=== PATIENT | male | born 1940 | race Caucasian/White ===

== ENCOUNTER → 2018-02-06 07:13 | Outpatient (CLI) | payer MEDICARE, OTHER, SELFPAY ==
[2018-02-06 07:53] LABS: Alanine Aminotransferase 47 IU/L (21-72); Albumin 3.8 g/dL (3.5-5.0); Albumin Globulin Ratio 1.4 (1.0-2.8); Alkaline Phosphatase 70 U/L (38-126); Aspartate Aminotransferase 31 IU/L (17-59); Bilirubin Total 0.5 mg/dL (0.2-1.3); Blood Urea Nitrogen 35 mg/dL (9-20); Calcium 9.4 mg/dL (8.4-10.2); Carbon Dioxide 28 mmol/L (22-32); Chloride 107 mmol/L (98-107); Estimated Glomerular Filt Rate 48.9 mL/min (>60); Globulin 2.8 g/dL (1.7-4.1); Glucose 132 mg/dL (80-110); HEMOLYSIS < 15 (0-50); Potassium 4.1 mmol/L (3.4-5.1); Sodium 144 mmol/L (137-145); Total Protein 6.6 g/dL (6.3-8.2)
[2018-02-06 08:21] LABS: Prostate Specific Antigen Scrn 4.77 ng/mL (0.1-4.0)
== END ==
PROVIDERS: PCP Internal Medicine; Visit Provider Internal Medicine
DX: Z12.5 Encounter for screening for malignant neoplasm of prostate (principal); I10 Essential (primary) hypertension; I71.4 Abdominal aortic aneurysm, without rupture
CPT/HCPCS: 36415; 80053; G0103

== ENCOUNTER → 2018-07-16 08:31 | Outpatient (CLI) | payer MEDICARE, OTHER, SELFPAY ==
[2018-07-16 10:15] LABS: Alanine Aminotransferase 34 IU/L (21-72); Albumin 3.6 g/dL (3.5-5.0); Albumin Globulin Ratio 1.6 (1.0-2.8); Alkaline Phosphatase 65 U/L (38-126); Aspartate Aminotransferase 27 IU/L (17-59); BUN Creatinine Ratio 22.9 (6-22); Bilirubin Total 0.4 mg/dL (0.2-1.3); Blood Urea Nitrogen 32 mg/dL (9-20); Carbon Dioxide 28 mmol/L (22-32); Chloride 107 mmol/L (98-107); Estimated Glomerular Filt Rate 48.9 mL/min (>60); Globulin 2.3 g/dL (1.7-4.1); Glucose 121 mg/dL (80-110); HEMOLYSIS < 15 (0-50); Potassium 4.4 mmol/L (3.4-5.1); Sodium 146 mmol/L (137-145); Total Protein 5.9 g/dL (6.3-8.2)
== END ==
PROVIDERS: PCP Internal Medicine; Visit Provider Internal Medicine
DX: I10 Essential (primary) hypertension (principal); R97.20 Elevated prostate specific antigen [PSA]
CPT/HCPCS: 36415; 80053; 84153

== ENCOUNTER → 2018-08-02 07:11 | Outpatient (CLI) | payer MEDICARE, OTHER, SELFPAY ==
--- NOTE | 2018-08-02 07:14 | DI.US.S_ITS ---
PROCEDURE: US RETRO PERITONEAL LIMITED INDICATIONS: AAA TECHNIQUE: Real time scanning was performed of the aorta and iliac arteries, with image documentation. COMPARISON: [facility], US, RENAL OR RETROPERITONEAL LIMIT, 07/03/2017, 9:44. FINDINGS: Aorta: Proximal aortic obscured by overlying bowel gas. Mid-aorta measures 2.4 cm. Distal aortic diameter is 5.1 cm. Iliac arteries: Right common iliac artery measures 1.5 cm. Left common iliac artery measures 1.4cm. IMPRESSION: Increase in size of infrarenal distal abdominal aortic aneurysm measuring up to 5.1 cm in maximal AP diameter. Recommend 3-6 month followup ultrasound and consider surgery/endovascular treatment. Dictated by: Baldo LACKEY Interpreted: Kim Oliveros MD on 08/02/2018 at 8:22 Approved by: Kim Oliveros M.D. on 08/02/2018 at 11:50
== END ==
PROVIDERS: Family Provider Internal Medicine; PCP Internal Medicine; Visit Provider Internal Medicine
DX: I71.4 Abdominal aortic aneurysm, without rupture (principal)
CPT/HCPCS: 76775

== ENCOUNTER → 2018-09-28 07:24 | Outpatient (CLI) | payer MEDICARE, OTHER, SELFPAY ==
[2018-09-28 08:54] LABS: BUN Creatinine Ratio 22.9 (6-22); Blood Urea Nitrogen 32 mg/dL (9-20); Calcium 8.9 mg/dL (8.4-10.2); Carbon Dioxide 29 mmol/L (22-32); Chloride 103 mmol/L (98-107); Estimated Glomerular Filt Rate 48.9 mL/min (>60); Glucose 128 mg/dL (80-110); HEMOLYSIS < 15 (0-50); Potassium 4.5 mmol/L (3.4-5.1); Sodium 140 mmol/L (137-145)
== END ==
PROVIDERS: PCP Internal Medicine; Visit Provider Internal Medicine
DX: E87.6 Hypokalemia (principal)
CPT/HCPCS: 36415; 80048

== ENCOUNTER → 2018-10-10 10:38 | Outpatient (CLI) | payer MEDICARE, OTHER, SELFPAY ==
--- NOTE | 2018-10-10 10:41 | DI.US.S_ITS ---
PROCEDURE: US RENAL COMPLETE INDICATIONS: RENAL MASS ON OUTSIDE CT TECHNIQUE: Real-time scanning was performed of the kidneys and bladder, with image documentation. COMPARISON: Outside Facility, , CT ANGIOGRAPHY ABDOMEN AND PELVIS, 09/04/2018, 10:45. [facility], CT, ABDOMEN/PELVIS WITH CONTRAST, 05/23/2012, 13:35. [facility], US, RETROPERITONEAL [employer](PNL), 06/18/2012, 10:12. [facility], US, RENAL OR RETROPERITONEAL LIMIT, 07/03/2017, 9:44. [facility], US, RENAL OR RETROPERITONEAL LIMIT, 12/29/2016, 9:20. [facility], US, RENAL OR RETROPERITONEAL LIMIT, 06/23/2016, 8:37. [facility], US RETRO PERITONEAL LIMITED, 08/02/2018, 7:25. FINDINGS: Kidneys: Kidneys are normal in size. Right kidney measures 11.0 cm long; left kidney measures 11.0 cm long. Right renal cortical thickness is 0.6 cm; left renal cortical thickness is 0.7 cm. Renal cortical echotexture is normal. No hydronephrosis or nephrolithiasis. There is a 1.4 cm exophytic, simple appearing cyst in the inferior pole the right kidney, correlating with the mass seen on the outside CT. A 1.5 cm simple cyst is noted in the mid to superior pole of the right kidney. In the left kidney, there is a 1.5 cm cyst in the lateral aspect of the left kidney demonstrating a small focus of mural calcification. Bladder: Pre-void bladder volume is 533 mL. Post-void residual is 276 mL. There is a hypoechoic mass in the gravity dependent bladder base measuring 5.8 x 2.8 x 5.3 cm. A bladder diverticulum is noted in the right superior aspect of the bladder. Prostate is enlarged. On pelvic ultrasound comparison no vascularity. On pre-void images, both ureteral jets are noted with color Doppler interrogation. (Of note, ureteral jets may not be detectable in up to 25% of cases due to insufficient differences in specific gravity between ureteral and bladder urine). Miscellaneous: No free pelvic fluid. IMPRESSION: 1. The exophytic mass in the inferior pole of the right kidney is compatible with a simple cyst on ultrasound. Other simple appearing cysts are also noted in kidneys. 2. A 5.8 x 2.8 x 5.3 cm nonvascular mass is present within the gravity dependent bladder lumen, possibly a clot. 3. A bladder diverticulum is noted in the right superior aspect of the bladder. 4. Enlarged prostate. 5. 276 mL post void residual consistent with urinary retention. Dictated by: iKm Oliveros M.D. on 10/10/2018 at 14:30 Approved by: Kim Oliveros M.D. on 10/10/2018 at 14:45
== END ==
PROVIDERS: PCP Internal Medicine; Visit Provider Internal Medicine
DX: N28.89 Other specified disorders of kidney and ureter (principal); N32.9 Bladder disorder, unspecified; N32.3 Diverticulum of bladder; N40.0 Benign prostatic hyperplasia without lower urinary tract symptoms
CPT/HCPCS: 76770

== ENCOUNTER → 2019-01-21 07:27 | Outpatient (CLI) | payer MEDICARE, OTHER, SELFPAY ==
[2019-01-21 09:41] LABS: Alanine Aminotransferase 29 IU/L (21-72); Albumin 3.6 g/dL (3.5-5.0); Albumin Globulin Ratio 1.6 (1.0-2.8); Alkaline Phosphatase 69 U/L (38-126); Aspartate Aminotransferase 26 IU/L (17-59); BUN Creatinine Ratio 20.7 (6-22); Bilirubin Total 0.6 mg/dL (0.2-1.3); Blood Urea Nitrogen 31 mg/dL (9-20); Calcium 9.2 mg/dL (8.4-10.2); Carbon Dioxide 31 mmol/L (22-32); Chloride 104 mmol/L (98-107); Cholesterol 156 mg/dL (140-199); Globulin 2.3 g/dL (1.7-4.1); Glucose 125 mg/dL (80-110); HDL Cholesterol 37 mg/dL (40-60); HEMOLYSIS < 15 (0-50); LDL Cholesterol Calculated 97 mg/dL (<100); Potassium 4.7 mmol/L (3.4-5.1); Sodium 142 mmol/L (137-145); Total Protein 5.9 g/dL (6.3-8.2); Triglycerides 112 mg/dL (35-150)
[2019-01-21 10:08] LABS: Prostate Specific Antigen 4.04 ng/mL (0.10-4.00)
== END ==
PROVIDERS: PCP Internal Medicine; Visit Provider Internal Medicine
DX: E78.2 Mixed hyperlipidemia (principal); I10 Essential (primary) hypertension; Z12.5 Encounter for screening for malignant neoplasm of prostate
CPT/HCPCS: 36415; 80053; 80061; 84153; G0103

== ENCOUNTER → 2019-04-23 08:32 | Outpatient (CLI) | payer MEDICARE, OTHER, SELFPAY ==
[2019-04-23 10:01] LABS: Blood Urea Nitrogen 34 mg/dL (9-20); Calcium 9.5 mg/dL (8.4-10.2); Carbon Dioxide 30 mmol/L (22-32); Chloride 106 mmol/L (98-107); Glucose 137 mg/dL (80-110); HEMOLYSIS < 15 (0-50); Potassium 4.4 mmol/L (3.4-5.1); Sodium 143 mmol/L (137-145)
== END ==
PROVIDERS: PCP Internal Medicine; Visit Provider Internal Medicine
DX: I10 Essential (primary) hypertension (principal)
CPT/HCPCS: 36415; 80048

== ENCOUNTER → 2019-07-08 06:46 | Outpatient (CLI) | payer MEDICARE, OTHER, SELFPAY ==
--- NOTE | 2019-07-08 | DI.US.S_ITS ---
PROCEDURE: US RENAL COMPLETE INDICATIONS: CHRONIC KIDNEY DISEASE TECHNIQUE: Real-time scanning was performed of the kidneys and bladder, with image documentation. COMPARISON: [facility], , US RETRO PERITONEAL LIMITED, 08/02/2018, 7:25. Outside Facility, , CT ANGIOGRAPHY ABDOMEN AND PELVIS, 09/04/2018, 10:45. [facility], , US RENAL COMPLETE, 10/10/2018, 11:19. FINDINGS: Kidneys: Kidneys are normal in size. Right kidney measures 9.6 cm long; left kidney measures 10.7 cm long. Right renal cortical thickness is 1.3 cm; left renal cortical thickness is 0.9 cm. Renal cortical echotexture is normal. No hydronephrosis or nephrolithiasis. No suspicious solid mass lesions. There are small renal cortical cysts bilaterally. There is a 1.3 cm cyst in anterior cortex of the mid right kidney, and a 1.6 cm cyst in the anterior cortex upper pole of the right kidney. A 1.5 cm cyst is noted in the anterior cortex of the left kidney. Bladder: Pre-void bladder volume is 185 mL. Post-void residual is 65 mL. Pre-void images demonstrate no intraluminal masses or stones. On pre-void images, right ureteral jet is noted with color Doppler interrogation. Left ureteral jet is not visualized. (Of note, ureteral jets may not be detectable in up to 25% of cases due to insufficient differences in specific gravity between ureteral and bladder urine). Miscellaneous: No free pelvic fluid. IMPRESSION: 1. Bilateral renal cortical thinning and small renal cortical cysts. No hydronephrosis. 2. Moderate postvoid residual in bladder measuring 65 mL. Dictated by: Kim Oliveros M.D. on 07/08/2019 at 11:31 Approved by: Kim Oliveros M.D. on 07/08/2019 at 11:44
--- NOTE | 2019-07-08 | DI.ECHO.S_ITS ---
[facility]---------+ [facility] +---------+ : : [address] [place] : : : : [id number] : : : : Phone: [phone]+ Echocardiogram Report + + :Name: RACHEL HUGHES Study Date: 07/08/2019 Height: 72 in : :[facility] Weight: 227 lb : : Gender: Male BSA: 2.2 m2 : :: 1940 Age: 78 yrs BP: 174/86 mmHg: :Reason For Study: MURMUR : : Performed By: [facility] Staff : :Referring: LASHA RAMOS : + + Interpretation Summary Mild-moderate concentric left ventricular hypertrophy with ejection fraction 55-60%. Severely dilated left atrium. Mild aortic stenosis. Mild mitral regurgitation. Mild tricuspid regurgitation. Mildly dilated aortic root and ascending aorta. Procedure: A two-dimensional transthoracic echocardiogram with color flow and Doppler was performed. The study quality was technically adequate. There is no prior echocardiogram noted for this patient. The patient was in normal sinus rhythm during the exam. Left Ventricle: The left ventricle is normal in size. There is mild-moderate concentric left ventricular hypertrophy. The ejection fraction is estimated to be 55-60%. There are no focal wall motion abnormalities. Right Ventricle: The right ventricle is normal in size and function. Atria: The left atrium is severely dilated. Right atrial size is normal. The interatrial septum is intact with no evidence for an atrial septal defect. Mitral Valve: The mitral valve leaflets appear mildly thickened, but open well. There is mild mitral annular calcification. There is mild mitral regurgitation. Aortic Valve: The aortic valve is trileaflet. There is mild aortic stenosis. The calculated aortic valve area is 1.9 cm2. The peak aortic velocity is 2.29 m/sec. The aortic valve mean gradient is 10 mmHg. There is moderate aortic regurgitation. Tricuspid Valve: The tricuspid valve is normal in structure and function. There is mild tricuspid regurgitation. Pulmonary artery pressures cannot be estimated because of the lack of a measurable TR jet velocity. Pulmonic Valve: The pulmonic valve is normal in structure and function. There is mild pulmonic regurgitation. Great Vessels: The aortic root is mildly dilated. The ascending aorta is mildly enlarged. The pulmonary artery is normal size. The inferior vena cava was not visualized. Pericardium/ Pleura There is no pericardial effusion. There is no pleural effusion. MMode/2D Measurements & Calculations LVIDd: 5.1 cm LVOT diam: 2.2 cm LVIDs: 4.1 cm Ao root diam: 3.7 cm FS: 20.6 % Aortic Jxn: 2.7 cm EPSS: 1.5 cm asc Aorta Diam: 3.9 cm IVSd: 1.4 cm LVPWd: 1.4 cm LV gallo. diameter/BSA (cm/m^2): 2.3 LV sys. diameter/BSA (cm/m^2): 1.8 LA A2 area: 30.7 cm2 RA long axis: 5.5 cm LA A4 area: 31.7 cm2 RA area: 12.4 cm2 LA length (vol): 5.8 cm RA vol: 24.0 ml LA vol: 143.0 ml RA : 10.7 ml/m2 LA vol index: 63.6 ml/m2 TAPSE: 1.9 cm Doppler Measurements & Calculations Ao V2 max: 229.0 cm/sec LVOT Max Dennis: 132.4 cm/sec Ao V2 mean: 147.4 cm/sec LV V1 max P.0 mmHg Ao max P.0 mmHg LV V1 VTI: 26.4 cm Ao mean P.2 mmHg DHIRAJ(I,D): 1.9 cm2 Ao V2 VTI: 50.6 cm DHIRAJ(V,D): 2.1 cm2 sev ratio: 0.52 DHIRAJ indexed to BSA (cm^2/m^2): 0.85 MV E max dennis: 46.9 cm/sec TR max dennis: 261.9 cm/sec MV A max dennis: 73.7 cm/sec TR max P.5 mmHg MV E/A: 0.64 PA V2 max: 76.8 cm/sec Med Peak E' Dennis: 4.7 cm/sec PA V2 mean: 49.5 cm/sec E/E' med: 9.9 PA mean P.2 mmHg Lat Peak E' Dennis: 6.8 cm/sec PA Accel Time: 0.11 sec E/E' lat: 6.9 E/e' average: 8.4 MV dec time: 0.32 sec SV(LVOT): 96.7 ml Electronically signed by: Raissa Keating on Reading Physician:07/08/2019 01:15 PM
== END ==
PROVIDERS: PCP Internal Medicine; Visit Provider Internal Medicine
DX: I08.3 Combined rheumatic disorders of mitral, aortic and tricuspid valves (principal); R01.1 Cardiac murmur, unspecified
CPT/HCPCS: 76770; 93307

== ENCOUNTER → 2019-09-05 08:35 | Outpatient (CLI) | payer MEDICARE, SELFPAY ==
[2019-09-05 10:04] LABS: Alanine Aminotransferase 22 IU/L (<50); Albumin 3.7 g/dL (3.5-5.0); Albumin Globulin Ratio 1.5 (1.0-2.8); Alkaline Phosphatase 70 U/L (38-126); Aspartate Aminotransferase 26 IU/L (17-59); BUN Creatinine Ratio 18.2 (6-22); Bilirubin Total 0.4 mg/dL (0.2-1.3); Blood Urea Nitrogen 31 mg/dL (9-20); Calcium 9.8 mg/dL (8.4-10.2); Carbon Dioxide 28 mmol/L (22-32); Chloride 106 mmol/L (98-107); Globulin 2.5 g/dL (1.7-4.1); Glucose 122 mg/dL (80-110); HEMOLYSIS < 15 (0-50); Potassium 4.1 mmol/L (3.4-5.1); Sodium 141 mmol/L (137-145); Total Protein 6.2 g/dL (6.3-8.2)
== END ==
PROVIDERS: PCP Internal Medicine; Visit Provider Internal Medicine
DX: I10 Essential (primary) hypertension (principal); N18.3 Chronic kidney disease, stage 3 (moderate)
CPT/HCPCS: 36415; 80053

== ENCOUNTER → 2019-09-07 12:22 | Outpatient (CLI) | payer MEDICARE, SELFPAY ==
[2019-09-07 12:50] LABS: Bacteria Urine None Seen; RBC Urine None Seen (0-5/HPF); WBC Urine None Seen (0-5/HPF)
[2019-09-07 13:37] LABS: Appearance Urine UA CLEAR; Bilirubin Urine UA NEGATIVE (NEGATIVE); Color Urine UA YELLOW; Glucose Urine UA NEGATIVE (Negative); Ketones Urine UA NEGATIVE (NEGATIVE); Leukocyte Esterase Urine UA NEGATIVE (NEGATIVE); Nitrite Urine UA NEGATIVE (Negative); Occult Blood Urine UA NEGATIVE (Negative); Protein Urine UA 1+ (Negative); Urobilinogen Urine UA 0.2 E.U./dL (0.2); pH Urine UA 6.5 (4.5-8.0)
[2019-09-07 13:48] LABS: Culture Indicated Urine Cult Not Indicated; Urine Comments Microscopic Normal
[2019-09-07 16:28] LABS: Creatinine Urine Random 54.8 mg/dL
[2019-09-07 17:06] LABS: Microalbumin Urine Random 34.2 mg/dL (0-1.6)
== END ==
PROVIDERS: PCP Internal Medicine; Visit Provider Internal Medicine
DX: N18.3 Chronic kidney disease, stage 3 (moderate) (principal)
CPT/HCPCS: 81001; 82043; 82570

== ENCOUNTER → 2019-11-28 09:23 | Outpatient (CLI) | payer MEDICARE, SELFPAY ==
[2019-11-28 10:09] LABS: Alanine Aminotransferase 24 IU/L (<50); Albumin 3.8 g/dL (3.5-5.0); Albumin Globulin Ratio 1.4 (1.0-2.8); Alkaline Phosphatase 69 U/L (38-126); Aspartate Aminotransferase 32 IU/L (17-59); BUN Creatinine Ratio 21.5 (6-22); Bilirubin Total 0.5 mg/dL (0.2-1.3); Blood Urea Nitrogen 40 mg/dL (9-20); Calcium 9.2 mg/dL (8.4-10.2); Carbon Dioxide 28 mmol/L (22-32); Chloride 107 mmol/L (98-107); Globulin 2.8 g/dL (1.7-4.1); Glucose 122 mg/dL (80-110); HEMOLYSIS < 15 (0-50); Potassium 4.1 mmol/L (3.4-5.1); Sodium 142 mmol/L (137-145); Total Protein 6.6 g/dL (6.3-8.2); Uric Acid 7.7 mg/dL (3.5-8.5)
== END ==
PROVIDERS: PCP Internal Medicine; Referring Provider Internal Medicine; Visit Provider Internal Medicine
DX: I10 Essential (primary) hypertension (principal); N18.3 Chronic kidney disease, stage 3 (moderate)
CPT/HCPCS: 36415; 80053; 84550

== ENCOUNTER → 2020-01-06 08:38 | Outpatient (CLI) | payer MEDICARE, SELFPAY ==
[2020-01-06 09:47] LABS: BUN Creatinine Ratio 22.9 (6-22); Blood Urea Nitrogen 40 mg/dL (9-20); Calcium 9.4 mg/dL (8.4-10.2); Carbon Dioxide 29 mmol/L (22-32); Chloride 107 mmol/L (98-107); Estimated Glomerular Filt Rate 37.6 mL/min (>60); Glucose 121 mg/dL (80-110); HEMOLYSIS < 15 (0-50); Potassium 4.7 mmol/L (3.4-5.1); Sodium 141 mmol/L (137-145)
== END ==
PROVIDERS: PCP Internal Medicine; Referring Provider Internal Medicine; Visit Provider Internal Medicine
DX: I10 Essential (primary) hypertension (principal); N18.3 Chronic kidney disease, stage 3 (moderate)
CPT/HCPCS: 36415; 80048

== ENCOUNTER → 2020-02-18 09:08 | Outpatient (CLI) | payer MEDICARE, SELFPAY ==
[2020-02-18 10:13] LABS: Add Manual Diff / Slide Review NO; Basophils Absolute Auto 0 /uL (0-100); Basophils Percent Auto 0.7 % (0-2); Eosinophils Absolute Auto 100 /uL (0-450); Eosinophils Percent Auto 1.9 % (2-4); Hematocrit 33.6 % (41-53); Hemoglobin 11.7 g/dL (13.5-17.5); Lymphocytes Absolute Auto 1100 /uL (1100-4500); Lymphocytes Percent Auto 25.5 % (25-40); Mean Corpuscular HGB Conc 34.8 % (30-36); Mean Corpuscular Volume 94.9 fL (80-100); Monocytes Absolute Auto 500 /uL (0-900); Monocytes Percent Auto 12.1 % (3-14); Neutrophils Absolute Auto 2700 /uL (1500-7000); Neutrophils Percent Auto 59.8 % (50-75); Platelet Count 105 X10^3/uL (150-400); Red Blood Cell Count 3.54 X10^6/uL (4.5-5.9); Red Cell Distribution Width 13.7 % (11.6-14.8); White Blood Cell Count 4.4 X10^3/uL (4.5-11.0)
[2020-02-18 10:19] LABS: BUN Creatinine Ratio 19.9 (6-22); Blood Urea Nitrogen 39 mg/dL (9-20); Calcium 9.4 mg/dL (8.4-10.2); Carbon Dioxide 28 mmol/L (22-32); Chloride 105 mmol/L (98-107); Glucose 122 mg/dL (80-110); HEMOLYSIS < 15 (0-50); Potassium 4.3 mmol/L (3.4-5.1); Sodium 139 mmol/L (137-145)
[2020-02-18 10:32] LABS: Creatinine Urine Random 38.2 mg/dL
[2020-02-18 10:49] LABS: Microalbumi Creatinin Ratio Ur 628.2 ug/mg CR (<30)
== END ==
PROVIDERS: Internal Medicine; PCP Internal Medicine; Referring Provider Internal Medicine; Visit Provider Internal Medicine
DX: N18.3 Chronic kidney disease, stage 3 (moderate) (principal)
CPT/HCPCS: 36415; 80048; 82043; 82570; 85025

== ENCOUNTER → 2020-03-27 08:35 | Outpatient (CLI) | payer MEDICARE, SELFPAY ==
[2020-03-27 08:52] LABS: RBC Urine None Seen (0-5/HPF)
[2020-03-27 09:57] LABS: Appearance Urine UA CLEAR; Bilirubin Urine UA NEGATIVE (NEGATIVE); Color Urine UA YELLOW; Glucose Urine UA NEGATIVE (Negative); Ketones Urine UA NEGATIVE (NEGATIVE); Leukocyte Esterase Urine UA NEGATIVE (NEGATIVE); Nitrite Urine UA NEGATIVE (Negative); Occult Blood Urine UA NEGATIVE (Negative); Protein Urine UA 1+ (Negative); Urobilinogen Urine UA 0.2 E.U./dL (0.2); pH Urine UA 6.5 (4.5-8.0)
[2020-03-27 10:12] LABS: Bacteria Urine Occasional (0-1); Culture Indicated Urine Cult Not Indicated; WBC Urine 0-1/HPF (0-5/HPF)
[2020-03-27 11:13] LABS: BUN Creatinine Ratio 17.1 (6-22); Blood Urea Nitrogen 32 mg/dL (9-20); Calcium 9.3 mg/dL (8.4-10.2); Carbon Dioxide 26 mmol/L (22-32); Chloride 105 mmol/L (98-107); Cholesterol 153 mg/dL (140-199); Creatine Kinase 118 U/L (55-170); Estimated Glomerular Filt Rate 34.8 mL/min (>60); Glucose 113 mg/dL (80-110); HEMOLYSIS < 15 (0-50); Sodium 138 mmol/L (137-145); Triglycerides 117 mg/dL (35-150)
[2020-03-27 11:27] LABS: CKMB % Relative Index 2.5 % (1.5-5.0)
[2020-03-27 11:29] LABS: HDL Cholesterol 41 mg/dL (40-60); LDL Cholesterol Calculated 89 mg/dL (<100)
== END ==
PROVIDERS: PCP Internal Medicine; Referring Provider Internal Medicine; Visit Provider Internal Medicine
DX: N18.3 Chronic kidney disease, stage 3 (moderate) (principal); E78.5 Hyperlipidemia, unspecified
CPT/HCPCS: 36415; 80048; 80061; 81001; 82550; 82553

== ENCOUNTER → 2020-06-16 08:25 | Outpatient (CLI) | payer MEDICARE, SELFPAY ==
[2020-06-16 08:45] LABS: Bacteria Urine None Seen; RBC Urine None Seen (0-5/HPF)
[2020-06-16 09:04] LABS: Add Manual Diff / Slide Review NO; Basophils Absolute Auto 0 /uL (0-100); Basophils Percent Auto 1.1 % (0-2); Eosinophils Absolute Auto 100 /uL (0-450); Eosinophils Percent Auto 2.5 % (2-4); Hematocrit 30.8 % (41-53); Hemoglobin 10.4 g/dL (13.5-17.5); Lymphocytes Absolute Auto 800 /uL (1100-4500); Lymphocytes Percent Auto 28.5 % (25-40); Mean Corpuscular HGB Conc 33.7 % (30-36); Mean Corpuscular Hemoglobin 32.4 PG (26-34); Monocytes Absolute Auto 400 /uL (0-900); Monocytes Percent Auto 14.6 % (3-14); Neutrophils Absolute Auto 1500 /uL (1500-7000); Neutrophils Percent Auto 53.3 % (50-75); Platelet Count 105 X10^3/uL (150-400); Red Blood Cell Count 3.21 X10^6/uL (4.5-5.9); Red Cell Distribution Width 13.8 % (11.6-14.8); White Blood Cell Count 2.9 X10^3/uL (4.5-11.0)
[2020-06-16 09:20] LABS: Alanine Aminotransferase 20 IU/L (<50); Albumin 3.7 g/dL (3.5-5.0); Albumin Globulin Ratio 1.4 (1.0-2.8); Alkaline Phosphatase 66 U/L (38-126); Aspartate Aminotransferase 25 IU/L (17-59); BUN Creatinine Ratio 20.7 (6-22); Bilirubin Total 0.5 mg/dL (0.2-1.3); Blood Urea Nitrogen 43 mg/dL (9-20); Carbon Dioxide 30 mmol/L (22-32); Chloride 105 mmol/L (98-107); Estimated Glomerular Filt Rate 30.8 mL/min (>60); Globulin 2.6 g/dL (1.7-4.1); Glucose 112 mg/dL (80-110); HEMOLYSIS < 15 (0-50); Phosphorous 4.4 mg/dL (2.3-3.7); Potassium 4.2 mmol/L (3.4-5.1); Sodium 141 mmol/L (137-145); Total Protein 6.3 g/dL (6.3-8.2)
[2020-06-16 10:03] LABS: Appearance Urine UA CLEAR; Bilirubin Urine UA NEGATIVE (NEGATIVE); Color Urine UA YELLOW; Glucose Urine UA NEGATIVE (Negative); Ketones Urine UA NEGATIVE (NEGATIVE); Leukocyte Esterase Urine UA NEGATIVE (NEGATIVE); Nitrite Urine UA NEGATIVE (Negative); Occult Blood Urine UA NEGATIVE (Negative); Protein Urine UA 1+ (Negative); Specific Gravity Urine UA 1.015 (1.000-1.035); Urobilinogen Urine UA 0.2 E.U./dL (0.2)
[2020-06-16 10:24] LABS: Culture Indicated Urine Cult Not Indicated; WBC Urine 0-1/HPF (0-5/HPF)
[2020-06-16 10:31] LABS: Creatinine Urine Random 55.2 mg/dL
[2020-06-16 10:46] LABS: Microalbumi Creatinin Ratio Ur 815.2 ug/mg CR (<30)
[2020-06-18 07:21] LABS: Parathyroid Hormone Int 26 pg/mL (15-65)
== END ==
PROVIDERS: PCP Internal Medicine; Referring Provider Internal Medicine; Visit Provider Internal Medicine
DX: N18.30 Chronic kidney disease, stage 3 unspecified (principal); I10 Essential (primary) hypertension
CPT/HCPCS: 36415; 80053; 81001; 82043; 82306; 82570; 83970; 84100; 85025

== ENCOUNTER → 2020-06-26 07:59 | Outpatient (CLI) | payer MEDICARE, SELFPAY ==
--- NOTE | 2020-06-26 | DI.US.S_ITS ---
PROCEDURE: US RENAL COMPLETE INDICATIONS: Chronic kidney disease, stage 3b TECHNIQUE: Real-time scanning was performed of the kidneys and bladder, with image documentation. COMPARISON: Outside Facility, , CT ANGIOGRAPHY ABDOMEN AND PELVIS, 09/04/2018, 10:45. [facility], , US RENAL COMPLETE, 07/08/2019, 8:19. FINDINGS: Kidneys: Kidneys are normal in size. Right kidney measures 13.6 cm long; left kidney measures 11.1 cm long. Right renal cortical thickness is 1.3 cm; left renal cortical thickness is 1.0 cm. Renal cortical echotexture is normal. No hydronephrosis or nephrolithiasis. No suspicious solid mass lesions. There are multiple right renal cysts measuring up to 1.5 cm in the upper pole with internal low level echoes, and 2.2 cm in the lower pole with anechoic appearance. There also multiple left renal cysts measuring up to 1.4 cm in the interpolar region with low level internal echoes. Additional 1.3 cm cyst with low level internal echoes is seen in the inferior pole Bladder: Pre-void bladder volume is 508 mL. Post-void residual is 95 mL. Pre-void images demonstrate no intraluminal masses or stones. Superior bladder diverticulum measuring 4.4 x 2.3 x 2.4 cm. On pre-void images, both of the ureteral jets are noted with color Doppler interrogation. (Of note, ureteral jets may not be detectable in up to 25% of cases due to insufficient differences in specific gravity between ureteral and bladder urine). Prostate is enlarged measuring 6.0 x 5.3 x 4.0 cm Miscellaneous: No free pelvic fluid. IMPRESSION: No hydronephrosis Multiple bilateral renal cysts, some of which demonstrate mildly complicated appearance, although unchanged. 95 mL postvoid residual Enlarged prostate Superior bladder diverticulum. Dictated by: Art Rider M.D. on 06/26/2020 at 11:48 Approved by: Art Rider M.D. on 06/26/2020 at 12:06
== END ==
PROVIDERS: PCP Internal Medicine; Referring Provider Internal Medicine; Visit Provider Internal Medicine
DX: N18.32 Chronic kidney disease, stage 3b (principal); N28.1 Cyst of kidney, acquired; N40.0 Benign prostatic hyperplasia without lower urinary tract symptoms; N32.3 Diverticulum of bladder
CPT/HCPCS: 76770

== ENCOUNTER → 2020-07-31 08:22 | Outpatient (CLI) | payer MEDICARE, SELFPAY ==
[2020-07-31 09:54] LABS: Albumin 3.5 g/dL (3.5-5.0); Blood Urea Nitrogen 43 mg/dL (9-20); Calcium 9.1 mg/dL (8.4-10.2); Carbon Dioxide 32 mmol/L (22-32); Chloride 103 mmol/L (98-107); Estimated Glomerular Filt Rate 29.6 mL/min (>60); Glucose 121 mg/dL (80-110); HEMOLYSIS < 15 (0-50); Phosphorous 4.8 mg/dL (2.3-3.7); Potassium 4.6 mmol/L (3.4-5.1); Sodium 136 mmol/L (137-145)
[2020-08-01 07:09] LABS: PSA Free % 33.3 % (.); PSA, Total 4.6 ng/mL (0.0-4.0)
== END ==
PROVIDERS: PCP Internal Medicine; Referring Provider Internal Medicine; Visit Provider Internal Medicine
DX: N40.0 Benign prostatic hyperplasia without lower urinary tract symptoms (principal); N18.32 Chronic kidney disease, stage 3b
CPT/HCPCS: 36415; 80069; 84153; 84154

== ENCOUNTER → 2020-10-02 08:51 | Outpatient (CLI) | payer MEDICARE, SELFPAY ==
[2020-10-02 11:09] LABS: BUN Creatinine Ratio 17.6 (6-22); Blood Urea Nitrogen 36 mg/dL (9-20); Calcium 8.7 mg/dL (8.4-10.2); Carbon Dioxide 31 mmol/L (22-32); Chloride 108 mmol/L (98-107); Estimated Glomerular Filt Rate 31.5 mL/min (>60); Glucose 116 mg/dL (80-110); HEMOLYSIS < 15 (0-50); Potassium 4.6 mmol/L (3.4-5.1); Sodium 139 mmol/L (137-145)
== END ==
PROVIDERS: PCP Internal Medicine; Referring Provider Internal Medicine; Visit Provider Internal Medicine
DX: N18.32 Chronic kidney disease, stage 3b (principal)
CPT/HCPCS: 36415; 80048

== ENCOUNTER → 2020-10-28 08:14 | Outpatient (CLI) | payer MEDICARE, SELFPAY ==
[2020-10-28 08:44] VITALS: BP 151/72; PULSE 58; RESP 18; TEMP 36.5
[2020-10-28] MEDS: DARBEPOETIN 200 MCG/0.4 ML SYRINGE SUBCUT (08:53)
== END ==
PROVIDERS: PCP Internal Medicine; Referring Provider Internal Medicine; Visit Provider Internal Medicine
DX: D46.9 Myelodysplastic syndrome, unspecified (principal); D61.818 Other pancytopenia; I12.9 Hypertensive chronic kidney disease with stage 1 through stage 4 chronic kidney disease, or unspecified chronic kidney disease; N18.9 Chronic kidney disease, unspecified; D63.1 Anemia in chronic kidney disease
CPT/HCPCS: 96372; J0881

== ENCOUNTER → 2020-11-11 08:17 | Outpatient (CLI) | payer MEDICARE, SELFPAY ==
[2020-11-11 08:40] VITALS: BP 137/71; PULSE 65; RESP 18
[2020-11-11] MEDS: DARBEPOETIN 200 MCG/0.4 ML SYRINGE SUBCUT (08:55)
== END ==
PROVIDERS: PCP Internal Medicine; Referring Provider Internal Medicine; Visit Provider Internal Medicine
DX: I12.9 Hypertensive chronic kidney disease with stage 1 through stage 4 chronic kidney disease, or unspecified chronic kidney disease (principal); N18.9 Chronic kidney disease, unspecified; D63.1 Anemia in chronic kidney disease; D46.9 Myelodysplastic syndrome, unspecified
CPT/HCPCS: 96372; J0881

== ENCOUNTER → 2020-11-25 08:18 | Outpatient (CLI) | payer MEDICARE, SELFPAY ==
[2020-11-25 08:38] VITALS: PULSE 59; RESP 16; TEMP 36.6; O2SAT 98
[2020-11-25 08:48] VITALS: BP 151/79
[2020-11-25] MEDS: DARBEPOETIN 200 MCG/0.4 ML SYRINGE SUBCUT (09:00)
== END ==
PROVIDERS: PCP Internal Medicine; Referring Provider Internal Medicine; Visit Provider Internal Medicine
DX: I12.9 Hypertensive chronic kidney disease with stage 1 through stage 4 chronic kidney disease, or unspecified chronic kidney disease (principal); N18.9 Chronic kidney disease, unspecified; D63.1 Anemia in chronic kidney disease; D46.9 Myelodysplastic syndrome, unspecified
CPT/HCPCS: 96372; J0881

== ENCOUNTER → 2020-12-09 08:21 | Outpatient (CLI) | payer MEDICARE, SELFPAY ==
[2020-12-09 08:45] VITALS: BP 151/74; PULSE 62; RESP 18; TEMP 37.1; O2SAT 98
[2020-12-09 08:58] VITALS: BP 139/72; PULSE 60
== END ==
PROVIDERS: PCP Internal Medicine; Referring Provider Internal Medicine; Visit Provider Internal Medicine
DX: D46.9 Myelodysplastic syndrome, unspecified (principal); I12.9 Hypertensive chronic kidney disease with stage 1 through stage 4 chronic kidney disease, or unspecified chronic kidney disease; N18.9 Chronic kidney disease, unspecified; D63.1 Anemia in chronic kidney disease

== ENCOUNTER → 2020-12-16 14:34 | Outpatient (CLI) | payer MEDICARE, SELFPAY ==
[2020-12-16] MEDS: EPOETIN ALFA-EPBX 10,000 UNIT/ML VIAL 20000 UNIT SUBCUT (14:43)
== END ==
PROVIDERS: PCP Internal Medicine; Referring Provider Internal Medicine; Visit Provider Internal Medicine
DX: D46.9 Myelodysplastic syndrome, unspecified (principal); I12.9 Hypertensive chronic kidney disease with stage 1 through stage 4 chronic kidney disease, or unspecified chronic kidney disease; N18.9 Chronic kidney disease, unspecified; D63.1 Anemia in chronic kidney disease
CPT/HCPCS: 36415; 85014; 85018; 96372; 99215; Q5106

== ENCOUNTER → 2020-12-30 12:52 | Outpatient (CLI) | payer MEDICARE, SELFPAY ==
[2020-12-30 13:15] VITALS: PULSE 60; RESP 17; TEMP 36.4; O2SAT 99
[2020-12-30 13:19] VITALS: BP 161/92
[2020-12-30 13:25] VITALS: BP 163/85; PULSE 59; RESP 15; O2SAT 100
[2020-12-30] MEDS: EPOETIN ALFA-EPBX 10,000 UNIT/ML VIAL 20000 UNIT SUBCUT (13:34)
== END ==
PROVIDERS: PCP Internal Medicine; Referring Provider Internal Medicine; Visit Provider Internal Medicine
DX: D46.9 Myelodysplastic syndrome, unspecified (principal); D61.818 Other pancytopenia; I12.9 Hypertensive chronic kidney disease with stage 1 through stage 4 chronic kidney disease, or unspecified chronic kidney disease; N18.9 Chronic kidney disease, unspecified; D63.1 Anemia in chronic kidney disease
CPT/HCPCS: 96372; Q5106

== ENCOUNTER → 2021-01-13 12:50 | Outpatient (CLI) | payer MEDICARE, SELFPAY ==
[2021-01-13 13:04] VITALS: BP 137/72; PULSE 64; RESP 16; TEMP 36.6; O2SAT 99
[2021-01-13] MEDS: EPOETIN ALFA-EPBX 10,000 UNIT/ML VIAL 20000 UNIT SUBCUT (13:16)
--- NOTE | 2021-01-13 13:20 | PHA.NOTE ---
EPO Injection: Patient is here for EPO 20,000 units SubQ injection every 2 weeks. Today Hgb/Hct = 10.3/30.5, BP = 137/72 Plan to give EPO 20,000 units dose today as ordered.
== END ==
PROVIDERS: PCP Internal Medicine; Referring Provider Internal Medicine; Visit Provider Internal Medicine
DX: D46.9 Myelodysplastic syndrome, unspecified (principal); D61.818 Other pancytopenia; I12.9 Hypertensive chronic kidney disease with stage 1 through stage 4 chronic kidney disease, or unspecified chronic kidney disease; N18.9 Chronic kidney disease, unspecified; D63.1 Anemia in chronic kidney disease
CPT/HCPCS: 96372; Q5106

== ENCOUNTER → 2021-01-27 12:54 | Outpatient (CLI) | payer MEDICARE, SELFPAY ==
[2021-01-27 13:02] VITALS: BP 154/75; PULSE 65; RESP 15; TEMP 36.8; O2SAT 99
[2021-01-27] MEDS: EPOETIN ALFA-EPBX 10,000 UNIT/ML VIAL 20000 UNIT SUBCUT (13:11)
== END ==
PROVIDERS: PCP Internal Medicine; Referring Provider Internal Medicine; Visit Provider Internal Medicine
DX: I12.9 Hypertensive chronic kidney disease with stage 1 through stage 4 chronic kidney disease, or unspecified chronic kidney disease (principal); N18.9 Chronic kidney disease, unspecified; D63.1 Anemia in chronic kidney disease; D46.9 Myelodysplastic syndrome, unspecified
CPT/HCPCS: 96372; Q5106

== ENCOUNTER → 2021-02-10 10:31 | Outpatient (CLI) | payer MEDICARE, SELFPAY ==
[2021-02-10 11:10] VITALS: BP 144/76; PULSE 64; RESP 16; TEMP 36.2; O2SAT 97
[2021-02-10] MEDS: EPOETIN ALFA-EPBX 40,000 UNIT/ML VIAL 40000 UNIT SUBCUT (11:51)
== END ==
PROVIDERS: PCP Internal Medicine; Referring Provider Internal Medicine; Visit Provider Internal Medicine
DX: D46.9 Myelodysplastic syndrome, unspecified (principal); I12.9 Hypertensive chronic kidney disease with stage 1 through stage 4 chronic kidney disease, or unspecified chronic kidney disease; N18.9 Chronic kidney disease, unspecified; D63.1 Anemia in chronic kidney disease; E78.5 Hyperlipidemia, unspecified; I71.4 Abdominal aortic aneurysm, without rupture; Z85.828 Personal history of other malignant neoplasm of skin; Z85.820 Personal history of malignant melanoma of skin; Z87.891 Personal history of nicotine dependence
CPT/HCPCS: 96372; 99215; Q5106

== ENCOUNTER → 2021-02-16 09:53 | Outpatient (CLI) | payer MEDICARE, SELFPAY ==
[2021-02-16 10:06] LABS: Bacteria Urine None Seen; WBC Urine None Seen (0-5/HPF)
[2021-02-16 10:55] LABS: Hematocrit 29.9 % (41-53); Mean Corpuscular HGB Conc 33.3 % (30-36); Mean Corpuscular Hemoglobin 31.2 PG (26-34); Mean Corpuscular Volume 93.8 fL (80-100); Platelet Count 107 X10^3/uL (150-400); Red Blood Cell Count 3.19 X10^6/uL (4.5-5.9); Red Cell Distribution Width 15.5 % (11.6-14.8); White Blood Cell Count 2.8 X10^3/uL (4.5-11.0)
[2021-02-16 10:56] LABS: Add Manual Diff / Slide Review YES
[2021-02-16 11:10] LABS: BUN Creatinine Ratio 14.7 (6-22); Blood Urea Nitrogen 36 mg/dL (9-20); Calcium 9.1 mg/dL (8.4-10.2); Carbon Dioxide 24 mmol/L (22-32); Chloride 107 mmol/L (98-107); Estimated Glomerular Filt Rate 25.4 mL/min (>60); Glucose 100 mg/dL (80-110); HEMOLYSIS < 15 (0-50); Potassium 4.4 mmol/L (3.4-5.1); Sodium 137 mmol/L (137-145)
[2021-02-16 11:14] LABS: Neutrophils Absolute Manual 1876 /uL (3000-5900); RBC Morphology Normal Morphology; Total Cells Counted 100
[2021-02-16 11:40] LABS: Appearance Urine UA CLEAR; Bilirubin Urine UA NEGATIVE (NEGATIVE); Color Urine UA YELLOW; Glucose Urine UA NEGATIVE (Negative); Ketones Urine UA NEGATIVE (NEGATIVE); Leukocyte Esterase Urine UA NEGATIVE (NEGATIVE); Nitrite Urine UA NEGATIVE (Negative); Occult Blood Urine UA TRACE-LYSED (Negative); Protein Urine UA 3+ (Negative); Urobilinogen Urine UA 0.2 E.U./dL (0.2); pH Urine UA 6.5 (4.5-8.0)
[2021-02-16 12:08] LABS: Culture Indicated Urine Cult Not Indicated; RBC Urine 0-1/HPF (0-5/HPF)
[2021-02-16 12:15] LABS: Creatinine Urine Random 69.7 mg/dL
[2021-02-16 12:51] LABS: Microalbumi Creatinin Ratio Ur 2045.9 ug/mg CR (<30); Microalbumin Urine Random 142.6 mg/dL (0-1.6)
[2021-02-17 06:37] LABS: Parathyroid Hormone Int 51 pg/mL (15-65)
== END ==
PROVIDERS: PCP Internal Medicine; Referring Provider Internal Medicine; Visit Provider Internal Medicine
DX: N18.32 Chronic kidney disease, stage 3b (principal)
CPT/HCPCS: 36415; 80048; 81001; 82043; 82306; 82570; 83970; 85007; 85025

== ENCOUNTER → 2021-02-24 13:19 | Outpatient (CLI) | payer MEDICARE, SELFPAY ==
[2021-02-24 13:40] VITALS: BP 148/74; PULSE 58; RESP 18; TEMP 36.6; O2SAT 99
[2021-02-24] MEDS: EPOETIN ALFA-EPBX 40,000 UNIT/ML VIAL 40000 UNIT SUBCUT (14:00)
== END ==
PROVIDERS: PCP Internal Medicine; Referring Provider Internal Medicine; Visit Provider Internal Medicine
DX: I12.9 Hypertensive chronic kidney disease with stage 1 through stage 4 chronic kidney disease, or unspecified chronic kidney disease (principal); N18.9 Chronic kidney disease, unspecified; D63.1 Anemia in chronic kidney disease; D46.9 Myelodysplastic syndrome, unspecified
CPT/HCPCS: 96372; Q5106

== ENCOUNTER → 2021-03-05 12:45 | Outpatient (CLI) | payer MEDICARE, SELFPAY ==
[2021-03-05 14:28] LABS: BUN Creatinine Ratio 17.6 (6-22); Blood Urea Nitrogen 51 mg/dL (9-20); Carbon Dioxide 28 mmol/L (22-32); Chloride 101 mmol/L (98-107); Estimated Glomerular Filt Rate 20.9 mL/min (>60); Glucose 99 mg/dL (80-110); HEMOLYSIS < 15 (0-50); Potassium 5.1 mmol/L (3.4-5.1); Sodium 136 mmol/L (137-145)
== END ==
PROVIDERS: PCP Internal Medicine; Referring Provider Physician Assistant; Visit Provider Physician Assistant
DX: N18.4 Chronic kidney disease, stage 4 (severe) (principal)
CPT/HCPCS: 36415; 80048

== ENCOUNTER → 2021-03-11 09:08 | Outpatient (CLI) | payer MEDICARE, SELFPAY | PROVIDERS: PCP Internal Medicine; Referring Provider Internal Medicine Hematology & Oncology; Visit Provider Internal Medicine Hematology & Oncology | DX: I12.9 Hypertensive chronic kidney disease with stage 1 through stage 4 chronic kidney disease, or unspecified chronic kidney disease (principal); N18.9 Chronic kidney disease, unspecified; D63.1 Anemia in chronic kidney disease; D46.9 Myelodysplastic syndrome, unspecified ==

== ENCOUNTER → 2021-03-25 10:52 | Outpatient (CLI) | payer MEDICARE, SELFPAY ==
[2021-03-25 11:12] VITALS: BP 146/75; PULSE 53; RESP 16; TEMP 36.6; O2SAT 99
[2021-03-25] MEDS: EPOETIN ALFA-EPBX 40,000 UNIT/ML VIAL 40000 UNIT SUBCUT (11:43)
--- NOTE | 2021-03-25 17:13 | ONC.PHA ---
EPO Injection: Patient is here for EPO 20,000 units SubQ injection every 2 week. Labs (03/24/2021): Hgb/Hct = 9.2/27.6 Today BP = 146/75 Per MD note (03/11/2021), hold EPO dose if Hgb > 10. Plan to give EPO dose as ordered for today. Vital Signs Temperature 97.8 F Pulse Rate 53 Respiratory Rate 16 Blood Pressure 146/75 Pulse Oximetry 99 Allergies Allergy/AdvReac Type Severity Reaction Status Date / Time benazepril [BENAZEPRIL] Allergy Severe Unknown Verified 01/01/21 14:07 clonidine [CLONIDINE] Allergy Intermediate Verified 01/01/21 14:07 hydrocodone [HYDROCODONE] Allergy Mild Verified 01/01/21 14:07
== END ==
PROVIDERS: PCP Internal Medicine; Referring Provider Internal Medicine Hematology & Oncology; Visit Provider Internal Medicine Hematology & Oncology
DX: I12.9 Hypertensive chronic kidney disease with stage 1 through stage 4 chronic kidney disease, or unspecified chronic kidney disease (principal); N18.9 Chronic kidney disease, unspecified; D63.1 Anemia in chronic kidney disease; D46.9 Myelodysplastic syndrome, unspecified
CPT/HCPCS: 96372; Q5106

== ENCOUNTER → 2021-04-08 09:18 | Outpatient (CLI) | payer MEDICARE, SELFPAY ==
[2021-04-08 09:30] VITALS: BP 147/75; PULSE 56; RESP 17; TEMP 36.7; O2SAT 99
[2021-04-08] MEDS: EPOETIN ALFA-EPBX 40,000 UNIT/ML VIAL 40000 UNIT SUBCUT (10:03)
--- NOTE | 2021-04-08 15:55 | ONC.PHA ---
EPO Injection: Patient is here for EPO 40,000 units SubQ injection every 2 weeks. Today labs: Hgb/Hct = 9.6/28.4 Today BP = 147/75 Plan to give EPO dose as ordered for this week. Vital Signs Temperature 98.0 F Pulse Rate 56 Respiratory Rate 17 Blood Pressure 147/75 Pulse Oximetry 99 Allergies Allergy/AdvReac Type Severity Reaction Status Date / Time benazepril [BENAZEPRIL] Allergy Severe Unknown Verified 01/01/21 14:07 clonidine [CLONIDINE] Allergy Intermediate Verified 01/01/21 14:07 hydrocodone [HYDROCODONE] Allergy Mild Verified 01/01/21 14:07
== END ==
PROVIDERS: PCP Internal Medicine; Referring Provider Internal Medicine Hematology & Oncology; Visit Provider Internal Medicine Hematology & Oncology
DX: I12.9 Hypertensive chronic kidney disease with stage 1 through stage 4 chronic kidney disease, or unspecified chronic kidney disease (principal); N18.9 Chronic kidney disease, unspecified; D63.1 Anemia in chronic kidney disease; D46.9 Myelodysplastic syndrome, unspecified
CPT/HCPCS: 96372; 99214; Q5106

== ENCOUNTER → 2021-04-19 09:16 | Outpatient (CLI) | payer MEDICARE, SELFPAY ==
[2021-04-19 09:27] LABS: RBC Urine None Seen (0-5/HPF)
[2021-04-19 09:56] LABS: Appearance Urine UA CLEAR; Bilirubin Urine UA NEGATIVE (NEGATIVE); Color Urine UA YELLOW; Glucose Urine UA NEGATIVE (Negative); Ketones Urine UA NEGATIVE (NEGATIVE); Leukocyte Esterase Urine UA TRACE (NEGATIVE); Nitrite Urine UA NEGATIVE (Negative); Occult Blood Urine UA NEGATIVE (Negative); Protein Urine UA 2+ (Negative); Urobilinogen Urine UA 0.2 E.U./dL (0.2)
[2021-04-19 09:58] LABS: BUN Creatinine Ratio 17.4 (6-22); Blood Urea Nitrogen 49 mg/dL (9-20); Carbon Dioxide 25 mmol/L (22-32); Chloride 105 mmol/L (98-107); Estimated Glomerular Filt Rate 21.7 mL/min (>60); Glucose 98 mg/dL (80-110); HEMOLYSIS < 15 (0-50); Magnesium 2.3 mg/dL (1.6-2.3); Phosphorous 4.6 mg/dL (2.3-3.7); Potassium 4.7 mmol/L (3.4-5.1); Sodium 137 mmol/L (137-145); Uric Acid 6.9 mg/dL (3.5-8.5)
[2021-04-19 10:13] LABS: Creatinine Urine Random 55.5 mg/dL
[2021-04-19 10:26] LABS: Vitamin D 25 Hydroxy (D3) 39.6 ng/mL (30.0-100.0)
[2021-04-19 10:33] LABS: Microalbumi Creatinin Ratio Ur 933.3 ug/mg CR (<30); Microalbumin Urine Random 51.8 mg/dL (0-1.6)
[2021-04-19 10:47] LABS: Bacteria Urine Occasional (0-1); Culture Indicated Urine Specimen Cultured; WBC Urine 0-1/HPF (0-5/HPF)
[2021-04-20 09:20] LABS: Parathyroid Hormone Int 85 pg/mL (15-65)
== END ==
PROVIDERS: PCP Internal Medicine; Referring Provider Physician Assistant; Visit Provider Physician Assistant
DX: N17.9 Acute kidney failure, unspecified (principal); N18.4 Chronic kidney disease, stage 4 (severe)
CPT/HCPCS: 36415; 80048; 81001; 82043; 82306; 82570; 83735; 83970; 84100; 84550; 87086

== ENCOUNTER → 2021-04-22 09:45 | Outpatient (CLI) | payer MEDICARE, SELFPAY ==
[2021-04-22 10:07] VITALS: BP 128/71; PULSE 56; RESP 16; TEMP 36.4; O2SAT 100
--- NOTE | 2021-04-22 10:27 | PC.NURSE ---
HEMOGLOBIN 10.[address] Jacobson. Epo parameters: Hold if Hgb > 10.
== END ==
PROVIDERS: PCP Internal Medicine; Referring Provider Internal Medicine Hematology & Oncology; Visit Provider Internal Medicine Hematology & Oncology
DX: I12.9 Hypertensive chronic kidney disease with stage 1 through stage 4 chronic kidney disease, or unspecified chronic kidney disease (principal); N18.9 Chronic kidney disease, unspecified; D63.1 Anemia in chronic kidney disease; D46.9 Myelodysplastic syndrome, unspecified

== ENCOUNTER → 2021-05-06 08:12 | Outpatient (CLI) | payer MEDICARE, SELFPAY ==
[2021-05-06 08:48] VITALS: BP 142/66; PULSE 55; RESP 16; TEMP 36; O2SAT 98
[2021-05-06] MEDS: EPOETIN ALFA-EPBX 40,000 UNIT/ML VIAL 40000 UNIT SUBCUT (09:17)
== END ==
PROVIDERS: PCP Internal Medicine; Referring Provider Internal Medicine; Visit Provider Internal Medicine Hematology & Oncology
DX: I12.9 Hypertensive chronic kidney disease with stage 1 through stage 4 chronic kidney disease, or unspecified chronic kidney disease (principal); N18.30 Chronic kidney disease, stage 3 unspecified; D63.1 Anemia in chronic kidney disease; D46.9 Myelodysplastic syndrome, unspecified
CPT/HCPCS: 96372; 99214; Q5106

== ENCOUNTER → 2021-05-27 09:07 | Outpatient (CLI) | payer MEDICARE, SELFPAY ==
[2021-05-27] MEDS: EPOETIN ALFA-EPBX 40,000 UNIT/ML VIAL 40000 UNIT SUBCUT (10:02)
== END ==
PROVIDERS: PCP Internal Medicine; Referring Provider Internal Medicine Hematology & Oncology; Visit Provider Internal Medicine Hematology & Oncology
DX: D46.9 Myelodysplastic syndrome, unspecified (principal); I12.9 Hypertensive chronic kidney disease with stage 1 through stage 4 chronic kidney disease, or unspecified chronic kidney disease; N18.9 Chronic kidney disease, unspecified; D63.1 Anemia in chronic kidney disease
CPT/HCPCS: 96372; 99214; Q5106

== ENCOUNTER → 2021-06-10 12:52 | Outpatient (CLI) | payer MEDICARE, SELFPAY ==
[2021-06-10 12:58] VITALS: BP 152/63; PULSE 60; RESP 18; TEMP 36.4; O2SAT 100
[2021-06-10 13:03] VITALS: BP 133/53
[2021-06-10] MEDS: EPOETIN ALFA-EPBX 40,000 UNIT/ML VIAL 40000 UNIT SUBCUT (13:28)
== END ==
PROVIDERS: PCP Internal Medicine; Referring Provider Internal Medicine Hematology & Oncology; Visit Provider Internal Medicine Hematology & Oncology
DX: I12.9 Hypertensive chronic kidney disease with stage 1 through stage 4 chronic kidney disease, or unspecified chronic kidney disease (principal); N18.9 Chronic kidney disease, unspecified; D63.1 Anemia in chronic kidney disease; D46.9 Myelodysplastic syndrome, unspecified
CPT/HCPCS: 96372; Q5106

== ENCOUNTER → 2021-06-10 15:08 | Outpatient (CLI) | payer MEDICARE, SELFPAY ==
[2021-06-11 20:18] LABS: COVID19 Sendout Not Detected (Not Detect)
== END ==
PROVIDERS: PCP Internal Medicine; Visit Provider Registered Nurse
DX: Z20.822 Contact with and (suspected) exposure to COVID-19 (principal)
CPT/HCPCS: 87635

== ENCOUNTER → 2021-06-14 10:27 | Outpatient (CLI) | payer MEDICARE, SELFPAY ==
[2021-06-14 11:15] LABS: Add Manual Diff / Slide Review NO; Basophils Absolute Auto 0 /uL (0-100); Basophils Percent Auto 1.3 % (0-2); Eosinophils Absolute Auto 0 /uL (0-450); Eosinophils Percent Auto 1.4 % (2-4); Hemoglobin 9.4 g/dL (13.5-17.5); Lymphocytes Absolute Auto 700 /uL (1100-4500); Lymphocytes Percent Auto 27.3 % (25-40); Mean Corpuscular HGB Conc 33.6 % (30-36); Mean Corpuscular Hemoglobin 31.7 PG (26-34); Mean Corpuscular Volume 94.5 fL (80-100); Monocytes Absolute Auto 400 /uL (0-900); Monocytes Percent Auto 15.7 % (3-14); Neutrophils Absolute Auto 1400 /uL (1500-7000); Neutrophils Percent Auto 54.3 % (50-75); Platelet Count 99 X10^3/uL (150-400); Red Blood Cell Count 2.96 X10^6/uL (4.5-5.9); Red Cell Distribution Width 15.8 % (11.6-14.8); White Blood Cell Count 2.5 X10^3/uL (4.5-11.0)
[2021-06-14 12:08] LABS: BUN Creatinine Ratio 17.8 (6-22); Blood Urea Nitrogen 46 mg/dL (9-20); Calcium 8.8 mg/dL (8.4-10.2); Carbon Dioxide 28 mmol/L (22-32); Chloride 102 mmol/L (98-107); Estimated Glomerular Filt Rate 23.9 mL/min (>60); Glucose 95 mg/dL (80-110); HEMOLYSIS < 15 (0-50); Magnesium 2.4 mg/dL (1.6-2.3); Phosphorous 4.2 mg/dL (2.3-3.7); Potassium 4.7 mmol/L (3.4-5.1); Sodium 136 mmol/L (137-145); Uric Acid 6.1 mg/dL (3.5-8.5)
[2021-06-14 12:18] LABS: Vitamin D 25 Hydroxy (D3) 56.2 ng/mL (30.0-100.0)
[2021-06-14 12:22] LABS: Appearance Urine UA CLEAR; Bilirubin Urine UA NEGATIVE (NEGATIVE); Color Urine UA YELLOW; Glucose Urine UA NEGATIVE (Negative); Ketones Urine UA NEGATIVE (NEGATIVE); Leukocyte Esterase Urine UA NEGATIVE (NEGATIVE); Nitrite Urine UA NEGATIVE (Negative); Occult Blood Urine UA NEGATIVE (Negative); Protein Urine UA 2+ (Negative); Urobilinogen Urine UA 0.2 E.U./dL (0.2); pH Urine UA 6.5 (4.5-8.0)
[2021-06-14 12:49] LABS: Bacteria Urine None Seen; Culture Indicated Urine Cult Not Indicated; RBC Urine None Seen (0-5/HPF); WBC Urine None Seen (0-5/HPF)
[2021-06-14 14:50] LABS: Creatinine Urine Random 51.1 mg/dL
[2021-06-14 15:23] LABS: Microalbumi Creatinin Ratio Ur 788.6 ug/mg CR (<30); Microalbumin Urine Random 40.3 mg/dL (0-1.6)
[2021-06-15 05:17] LABS: Parathyroid Hormone Int 62 pg/mL (15-65)
== END ==
PROVIDERS: PCP Internal Medicine; Referring Provider Internal Medicine Nephrology; Visit Provider Internal Medicine Nephrology
DX: N18.4 Chronic kidney disease, stage 4 (severe) (principal)
CPT/HCPCS: 36415; 80048; 81001; 82043; 82306; 82570; 83735; 83970; 84100; 84550; 85025

== ENCOUNTER → 2021-06-24 09:05 | Outpatient (CLI) | payer MEDICARE, SELFPAY ==
[2021-06-24] MEDS: EPOETIN ALFA-EPBX 40,000 UNIT/ML VIAL 40000 UNIT SUBCUT (10:07)
== END ==
PROVIDERS: PCP Internal Medicine; Referring Provider Internal Medicine Hematology & Oncology; Visit Provider Internal Medicine Hematology & Oncology
DX: D46.9 Myelodysplastic syndrome, unspecified (principal); I12.9 Hypertensive chronic kidney disease with stage 1 through stage 4 chronic kidney disease, or unspecified chronic kidney disease; N18.9 Chronic kidney disease, unspecified; D63.1 Anemia in chronic kidney disease
CPT/HCPCS: 96372; 99214; Q5106

== ENCOUNTER → 2021-07-08 10:07 | Outpatient (CLI) | payer MEDICARE, SELFPAY ==
[2021-07-08 10:37] VITALS: BP 138/63; PULSE 56; RESP 18; TEMP 36.4; O2SAT 99
[2021-07-08] MEDS: EPOETIN ALFA-EPBX 40,000 UNIT/ML VIAL 40000 UNIT SUBCUT (10:57)
== END ==
PROVIDERS: PCP Internal Medicine; Referring Provider Internal Medicine Hematology & Oncology; Visit Provider Internal Medicine Hematology & Oncology
DX: I12.9 Hypertensive chronic kidney disease with stage 1 through stage 4 chronic kidney disease, or unspecified chronic kidney disease (principal); D63.1 Anemia in chronic kidney disease; N18.32 Chronic kidney disease, stage 3b; D46.9 Myelodysplastic syndrome, unspecified
CPT/HCPCS: 96372; Q5106

== ENCOUNTER → 2021-07-22 08:39 | Outpatient (CLI) | payer MEDICARE, SELFPAY ==
[2021-07-22] MEDS: EPOETIN ALFA-EPBX 40,000 UNIT/ML VIAL 40000 UNIT SUBCUT (09:51)
== END ==
PROVIDERS: PCP Internal Medicine; Referring Provider Internal Medicine Hematology & Oncology; Visit Provider Internal Medicine Hematology & Oncology
DX: D46.9 Myelodysplastic syndrome, unspecified (principal); I12.9 Hypertensive chronic kidney disease with stage 1 through stage 4 chronic kidney disease, or unspecified chronic kidney disease; N18.9 Chronic kidney disease, unspecified; D63.1 Anemia in chronic kidney disease
CPT/HCPCS: 96372; 99214; Q5106

== ENCOUNTER → 2021-08-05 11:14 | Outpatient (CLI) | payer MEDICARE, SELFPAY ==
[2021-08-05 11:36] VITALS: BP 134/69; PULSE 60; RESP 16; TEMP 36.8; O2SAT 98
[2021-08-05] MEDS: EPOETIN ALFA-EPBX 40,000 UNIT/ML VIAL 40000 UNIT SUBCUT (11:55)
== END ==
PROVIDERS: PCP Internal Medicine; Referring Provider Internal Medicine; Visit Provider Internal Medicine Hematology & Oncology
DX: I12.9 Hypertensive chronic kidney disease with stage 1 through stage 4 chronic kidney disease, or unspecified chronic kidney disease (principal); N18.30 Chronic kidney disease, stage 3 unspecified; D63.1 Anemia in chronic kidney disease; D46.9 Myelodysplastic syndrome, unspecified
CPT/HCPCS: 96372; Q5106

== ENCOUNTER 2021-08-14 01:43 | Emergency (ER) | payer MEDICARE, SELFPAY ==
[2021-08-14] VITALS (22 sets, daily range): BP systolic 113–167; BP diastolic 61–85; PULSE 74–97; RESP 13–29; TEMP 37.2–39.4; O2SAT 90–97; BMI 26.8
--- NOTE | 2021-08-14 01:55 | DI.RAD.S_ITS ---
PROCEDURE: XR CHEST 1V INDICATIONS: short of breath TECHNIQUE: One view of the chest was acquired. COMPARISON: None. FINDINGS: Surgical changes and devices: None. Lungs and pleura: A right perihilar infiltrate and to lesser extent left perihilar infiltrate is consistent with diffuse pneumonia or CHF. Mediastinum: Mediastinal contours appear normal. Heart size is normal. Bones and chest wall: No suspicious bony lesions. Overlying soft tissues appear unremarkable. IMPRESSION: Bilateral perihilar infiltrates, worse on the right consistent with diffuse pneumonia or CHF. Dictated by: Darien Cardozo M.D. on 08/14/2021 at 6:54 Approved by: Darien Cardozo M.D. on 08/14/2021 at 6:58
--- NOTE | 2021-08-14 01:58 | ED.SOB ---
HPI - SOB/Dyspnea General Chief Complaint: Shortness of Breath/Dyspnea Stated Complaint: SOB Time Seen by Provider: 08/14/21 01:54 History of Present Illness HPI Narrative: Pleasent 80 year Male history of hypertension, gout, myelodysplastic syndrome pancytopenia chronic renal insufficiency presenting today with sudden onset of increased shortness of breath. He said he was okay when he went to bed however he got up to use the restroom and noticed he was a little winded when he came back however his breathing became more difficult throughout the night. Requiring a 911 call. He denies any fever or chills. No chest pain. He says he has been checking his oxygen at home with his anemia he is typically 95%. However for EMS he was 85% on room air quickly required a non-rebreather head he was started on a DuoNeb. No prior history of asthma or COPD or congestive heart failure. He is feeling better with oxygen. Related Data Home Medications Medication Instructions Recorded Confirmed ASPIRIN (#ASPIRIN) 81 mg PO Q DAY #0 12/13/11 06/24/21 BIOTIN/CA/CA PANTOTHENATE/CR 1 tab PO Q DAY #0 12/13/11 06/24/21 (#CENTRUM) cholecalciferol (vitamin D3) 25 25 mcg PO DAILY 12/02/19 06/24/21 mcg (1,000 unit) capsule carvedilol 12.5 mg tablet 18.75 mg PO BID tab 07/06/20 06/24/21 prazosin 2 mg capsule 6 mg PO BEDTIME cap 10/05/20 06/24/21 epoetin bridgette-epbx 40,000 unit/mL 40,000 unit SUBCUT .[id number] ml 02/12/21 06/24/21 injection solution (Retacrit) amlodipine 5 mg tablet (Norvasc) 10 mg PO DAILY 02/25/21 06/24/21 furosemide 20 mg tablet 20 mg PO DAILY 02/25/21 06/24/21 ascorbic acid (vitamin C) 500 mg 500 mg PO DAILY 05/06/21 06/24/21 tablet (Vitamin C) Previous Rx's Medication Instructions Recorded allopurinol 100 mg tablet 100 mg PO DAILY #90 tab 03/04/21 pravastatin 40 mg tablet 40 mg PO DAILY #90 tab 03/04/21 ferrous sulfate 325 mg (65 mg 325 mg PO DAILY 90 Days #90 tab 04/15/21 iron) tablet (iron) Allergies Allergy/AdvReac Type Severity Reaction Status Date / Time benazepril [BENAZEPRIL] Allergy Severe Unknown Verified 06/10/21 14:45 clonidine [CLONIDINE] Allergy Intermediate Verified 06/10/21 14:45 hydrocodone [HYDROCODONE] Allergy Mild Verified 06/10/21 14:45 Review of Systems Review of Systems Narrative: GENERAL: Denies chills, fatigue, malaise, fever, sweats, travel HEENT: Denies sinus pain, ear pain, sore throat, difficulty swallowing, neck pain RESPIRATORY: See HPI CARDIOVASCULAR: Denies chest pain, palpitations, orthopnea, edema GASTROINTESTINAL: Denies nausea, vomiting, abdominal pain, diarrhea, constipation, melena. : Denies dysuria, frequency, incontinence, hematuria, urinary retention, flank pain. MUSCULOSKELETAL: Denies weakness, joint pain, or bony pain SKIN: No rash, no erythema, no pruritus NEUROLOGIC: Denies weakness, dizziness, headache, numbness, change in speech, confusion PSYCHIATRIC: No concerning psychosocial issues. 12 point review of systems is negative except for those stated above and HPI Patient History Medical History Abdominal aortic aneurysm (AAA) 3.0 cm to 5.5 cm in diameter in male (05/17/11) Diverticular disease Diverticulosis of colon (05/17/11) Elevated PSA Essential hypertension Foot pain (2002) Gout (1987) Hematuria (~2018) Mixed hyperlipidemia Plantar warts Shoulder pain Thrombocytopenia Tinnitus Surgical History Anesthesia History of penile implant (~2000) History of penile implant (~1984) Status post abdominal aortic aneurysm (AAA) repair Status post hernia repair (1969) Status post tonsillectomy and adenoidectomy Family History Child Age: 57 MS (multiple sclerosis) Child Age: 55 High cholesterol Father Hypertension High cholesterol Bladder cancer Skin cancer Pneumonia Mother Heart disease Hypertension High cholesterol Cancer Sister Age: 83 Cancer High cholesterol Osteoporosis Breast cancer Social History marital status: household members: spouse lives independently: Yes caregiver/support person: No housing: house pets and animals: No education level: college occupational status: other current occupational exposures/hazards: No Smoking Status: Former smoker Smokeless tobacco user: other quit status: quit date established alcohol intake: current substance use type: does not use Smoking Status: Former smoker Exam Initial Vital Signs Initial Vital Signs: Vital Signs Blood Pressure 147/80 H 08/14/21 01:48 GENERAL: Alert 80-year-old male in moderate respiratory distress in no acute distress. HEENT: Head atraumatic,EOMI, pupils reactive, face symmetric, moist mucous membranes CARDIOVASCULAR: Regular rate and rhythm without murmurs, rubs or gallops. RESPIRATORY: Breath sounds equal bilaterally, no wheezes rales or rhonchi. ABDOMEN: Soft, nontender. Normoactive bowel sounds all 4 quadrants. No guarding or rebound. EXTREMITIES: Normal range of motion, no clubbing or edema. Neurovascularly intact NEUROLOGICAL: Alert and oriented x4.Normal gait and speech. SKIN: Warm, dry, no laceration, no petechiae, no rashes or lesions. Course Orders Ordered: ED Orders 08/14/21 01:45 COVID19 -Nasal swab/Pre-Proc Stat 08/14/21 01:55 Consult to Respiratory Therapy Evaluate & Treat XR chest 1V Stat 08/14/21 02:00 Complete Blood Count AUTO DIFF Stat Comprehensive Metabolic Panel Stat D Dimer Stat Lactate (Lactic Acid) Stat Magnesium Stat NT-proBNP (BNP-Adult 18+) Stat Procalcitonin Stat Troponin & CK Cardiac Panel Stat Type and Screen Stat 08/14/21 02:04 EKG-12 Lead Stat 08/14/21 02:25 Blood Culture Stat 08/14/21 04:10 Trop I [Troponin I] Stat 08/14/21 06:22 EKG-12 Lead Stat Discontinued Medications Acetaminophen (Acetaminophen 325 Mg Tablet) 975 mg PO NOW ONE Stop: 08/14/21 04:51 Last Admin: 08/14/21 04:52 Dose: 975 mg Documented by: KENIA Furosemide (Furosemide 40 Mg/4 Ml Vial) 40 mg IV NOW ONE Stop: 08/14/21 03:23 Last Admin: 08/14/21 03:39 Dose: 40 mg Documented by: KENIA Piperacillin Sod/Tazobactam (Sod 4.5 gm/ Sodium Chloride) 100 mls @ 200 mls/hr IV NOW ONE Stop: 08/14/21 05:01 Last Infusion: 08/14/21 05:49 Dose: 0 mls/hr Documented by: Admin: 08/14/21 05:10 Dose: 200 mls/hr Documented by: LINA Vital Signs Vital signs: Vital Signs - 8 hr 08/14/21 01:48 08/14/21 01:49 08/14/21 01:59 Temperature 98.9 F Pulse Rate 92 H 91 H Respiratory Rate 20 29 H Blood Pressure 147/80 H 147/80 H Pulse Oximetry 93 90 L 08/14/21 02:00 08/14/21 02:30 08/14/21 03:00 Temperature Pulse Rate 91 H 82 85 Respiratory Rate 21 17 19 Blood Pressure 135/62 Pulse Oximetry 91 92 93 08/14/21 03:02 08/14/21 03:30 08/14/21 04:00 Temperature Pulse Rate 81 83 84 Respiratory Rate 20 21 15 Blood Pressure 140/67 165/85 H 165/72 H Pulse Oximetry 93 92 93 08/14/21 04:30 08/14/21 04:49 08/14/21 05:00 Temperature 102.9 F H Pulse Rate 90 97 H Respiratory Rate 21 21 Blood Pressure 155/73 H 167/78 H Pulse Oximetry 91 92 08/14/21 05:30 08/14/21 05:51 08/14/21 06:00 Temperature 100.7 F H Pulse Rate 85 79 Respiratory Rate 20 21 Blood Pressure 129/62 113/61 Pulse Oximetry 95 96 08/14/21 06:30 Temperature Pulse Rate 79 Respiratory Rate 17 Blood Pressure 121/64 Pulse Oximetry 97 MDM - SOB/Dyspnea Lab Data Result diagrams: 08/14/21 02:00 08/14/21 02:00 Labs: Lab Results 08/14/21 08/14/21 08/14/21 Range/Units 01:45 02:00 02:00 WBC (4.5-11.0) X10^3/uL RBC (4.5-5.9) X10^6/uL Hgb (13.5-17.5) g/dL Hct (41-53) % MCV (80-100) fL MCH (26-34) PG MCHC (30-36) % RDW (11.6-14.8) % Plt Count (150-400) X10^3/uL Neut % (Auto) (50-75) % Lymph % (Auto) (25-40) % [place] % (Auto) (3-14) % Eos % (Auto) (2-4) % Baso % (Auto) (0-2) % Neut # (Auto) (3571-7857) /uL Lymph # (Auto) (9467-6388) /uL [place] # (Auto) (0-900) /uL Eos # (Auto) (0-450) /uL Baso # (Auto) (0-100) /uL D-Dimer (<230) ng/mL Sodium (137-145) mmol/L Potassium (3.4-5.1) mmol/L Chloride (98-107) mmol/L Carbon Dioxide (22-32) mmol/L BUN (9-20) mg/dL Creatinine (0.66-1.25) mg/dL Estimated GFR (>60) mL/min BUN/Creatinine Ratio (6-22) Glucose (80-110) mg/dL Lactate (0.7-2.1) mmol/L Calcium (8.4-10.2) mg/dL Magnesium (1.6-2.3) mg/dL Total Bilirubin (0.2-1.3) mg/dL AST (17-59) IU/L ALT (<50) IU/L Alkaline Phosphatase (38-126) U/L Total Creatine Kinase (55-170) U/L CK-MB (CK-2) (<2.37) ng/mL CK-MB (CK-2) Rel Index (1.5-5.0) % Troponin I (0.01-0.034) ng/mL NT-Pro-B Natriuret Pep 9000 H (<450) pg/mL Total Protein (6.3-8.2) g/dL Albumin (3.5-5.0) g/dL Globulin (1.7-4.1) g/dL Albumin/Globulin Ratio (1.0-2.8) Procalcitonin 0.09 (<0.5) ng/mL SARS-CoV-2 (PCR) Negative (Negative) Blood Type O Positive Antibody Screen Negative 08/14/21 08/14/21 08/14/21 Range/Units 02:00 02:00 02:00 WBC 3.3 L (4.5-11.0) X10^3/uL RBC 3.07 L (4.5-5.9) X10^6/uL Hgb 9.7 L (13.5-17.5) g/dL Hct 29.3 L (41-53) % MCV 95.5 (80-100) fL MCH 31.5 (26-34) PG MCHC 33.0 (30-36) % RDW 16.5 H (11.6-14.8) % Plt Count 96 L (150-400) X10^3/uL Neut % (Auto) 76.0 H (50-75) % Lymph % (Auto) 12.7 L (25-40) % [place] % (Auto) 8.9 (3-14) % Eos % (Auto) 1.2 L (2-4) % Baso % (Auto) 1.2 (0-2) % Neut # (Auto) 2500 (8921-0789) /uL Lymph # (Auto) 400 L (4791-5333) /uL [place] # (Auto) 300 (0-900) /uL Eos # (Auto) 0 (0-450) /uL Baso # (Auto) 0 (0-100) /uL D-Dimer (<230) ng/mL Sodium 139 (137-145) mmol/L Potassium 4.5 (3.4-5.1) mmol/L Chloride 109 H (98-107) mmol/L Carbon Dioxide 26 (22-32) mmol/L BUN 51 H (9-20) mg/dL Creatinine 3.05 H (0.66-1.25) mg/dL Estimated GFR 19.8 L (>60) mL/min BUN/Creatinine Ratio 16.7 (6-22) Glucose 123 H (80-110) mg/dL Lactate 0.8 (0.7-2.1) mmol/L Calcium 8.5 (8.4-10.2) mg/dL Magnesium 2.2 (1.6-2.3) mg/dL Total Bilirubin 0.5 (0.2-1.3) mg/dL AST 27 (17-59) IU/L ALT 15 (<50) IU/L Alkaline Phosphatase 59 (38-126) U/L Total Creatine Kinase 117 (55-170) U/L CK-MB (CK-2) 2.42 H (<2.37) ng/mL CK-MB (CK-2) Rel Index 2.1 (1.5-5.0) % Troponin I 0.100 H (0.01-0.034) ng/mL NT-Pro-B Natriuret Pep (<450) pg/mL Total Protein 6.3 (6.3-8.2) g/dL Albumin 3.6 (3.5-5.0) g/dL Globulin 2.7 (1.7-4.1) g/dL Albumin/Globulin Ratio 1.3 (1.0-2.8) Procalcitonin (<0.5) ng/mL SARS-CoV-2 (PCR) (Negative) Blood Type Antibody Screen 08/14/21 08/14/21 Range/Units 02:00 04:10 WBC (4.5-11.0) X10^3/uL RBC (4.5-5.9) X10^6/uL Hgb (13.5-17.5) g/dL Hct (41-53) % MCV (80-100) fL MCH (26-34) PG MCHC (30-36) % RDW (11.6-14.8) % Plt Count (150-400) X10^3/uL Neut % (Auto) (50-75) % Lymph % (Auto) (25-40) % [place] % (Auto) (3-14) % Eos % (Auto) (2-4) % Baso % (Auto) (0-2) % Neut # (Auto) (7956-1445) /uL Lymph # (Auto) (6382-8274) /uL [place] # (Auto) (0-900) /uL Eos # (Auto) (0-450) /uL Baso # (Auto) (0-100) /uL D-Dimer 1922 H (<230) ng/mL Sodium (137-145) mmol/L Potassium (3.4-5.1) mmol/L Chloride (98-107) mmol/L Carbon Dioxide (22-32) mmol/L BUN (9-20) mg/dL Creatinine (0.66-1.25) mg/dL Estimated GFR (>60) mL/min BUN/Creatinine Ratio (6-22) Glucose (80-110) mg/dL Lactate (0.7-2.1) mmol/L Calcium (8.4-10.2) mg/dL Magnesium (1.6-2.3) mg/dL Total Bilirubin (0.2-1.3) mg/dL AST (17-59) IU/L ALT (<50) IU/L Alkaline Phosphatase (38-126) U/L Total Creatine Kinase (55-170) U/L CK-MB (CK-2) (<2.37) ng/mL CK-MB (CK-2) Rel Index (1.5-5.0) % Troponin I 0.308 H* (0.01-0.034) ng/mL NT-Pro-B Natriuret Pep (<450) pg/mL Total Protein (6.3-8.2) g/dL Albumin (3.5-5.0) g/dL Globulin (1.7-4.1) g/dL Albumin/Globulin Ratio (1.0-2.8) Procalcitonin (<0.5) ng/mL SARS-CoV-2 (PCR) (Negative) Blood Type Antibody Screen Urine Dip Bedside Urine Glucose Negative Bedside Urine Bilirubin - Negative Bedside Urine Ketone - Negative Urine Specific [place] 1.025 Bedside Urine Occult Blood - Negative Bedside Urine pH 6.0 Bedside Urine Protein ++ 100 Bedside Urine Urobilinogen - Negative Bedside Urine Nitrite - Negative Bedside Urine Leukocytes - Negative Esterase Imaging Data Chest x-ray: Radiologist's Impression: Right perihilar and left lobe ground glass opacity. Differential considerations include occult pulmonary edema multi lobar pneumonia ECG Data Interpretation: Artifact noted sinus rhythm Sinus rhythm rate 81 PA interval 148, QRS [address] changes MDM Narrative Medical decision making narrative: Patient is on be quite hypoxic. It sounds that was onset no infectious symptoms previously. Right middle lobe does appear to have some ground-glass opacity. Initially pancytopenia is stable. Troponin on the indeterminate side but near positive. BNP is 9000 most consistent with a congestive heart failure like picture. He is not anemic. He is requiring 4-5 L of oxygen. Chronic kidney failure not yet on dialysis GFR of 19 she slightly lower than his previous of 20-21. 0430 Dr Ramey, nephrology updated patient's symptoms test results would prefer any IV contrast at all costs. Recommend a D dimer. Patient is found to have significantly elevated D-dimer and a 2nd repeat troponin that is now in the positive NSTEMI range. No changes on his EKG. Patient has now also developed a fever of 102. He is treated with Zosyn for pneumonia and given Tylenol. The patient is thrombocytopenic with platelets of 96 near his baseline which seems to be 84 to 99. However with significant thrombocytopenia, elevated D-dimer, elevated creatinine, elevated troponin waiting for guidance to anticoagulate. Patient continues to be comfortable with out chest pain. 0620 Dr. Craig at [facility] accepts patient. At thist red no further treatemtns indicated. Will hold of CTA and do VQ. No anticoagulation. Agree with lasix and Zosyn Discharge Plan Departure Patient Disposition: [facility] acute hospital Clinical Impression: Non-ST elevation [place] (NSTEMI), Thrombocytopenia, Myelodysplastic syndrome, Congestive heart failure, Chronic kidney disease Prescriptions: No Action ASPIRIN (#ASPIRIN) 81 mg PO Q DAY Qty: 0 0RF BIOTIN/CA/CA PANTOTHENATE/CR (#CENTRUM) 1 tab PO Q DAY Qty: 0 0RF pravastatin 40 mg tablet 40 mg PO DAILY Qty: 90 2RF allopurinol 100 mg tablet 100 mg PO DAILY Qty: 90 2RF carvedilol 12.5 mg tablet 18.75 mg PO BID 0RF prazosin 2 mg capsule 6 mg PO BEDTIME 0RF Retacrit 40,000 unit/mL solution 40,000 unit SUBCUT .[id number] 0RF cholecalciferol (vitamin D3) 25 mcg (1,000 unit) capsule 25 mcg PO DAILY 0RF furosemide 20 mg Tablet 20 mg PO DAILY 0RF amlodipine [Norvasc] 5 mg tablet 10 mg PO DAILY 0RF ferrous sulfate [iron] 325 mg (65 mg iron) Tablet 325 mg PO DAILY 90 Days Qty: 90 2RF ascorbic acid (vitamin C) [Vitamin C] 500 mg Tablet 500 mg PO DAILY 0RF Referrals: Randolph Sanchez MD [Primary Care Provider] -
[2021-08-14 02:10] LABS: COVID19 -Nasal RAPID Negative (Negative)
[2021-08-14 02:11] LABS: Add Manual Diff / Slide Review NO; Basophils Absolute Auto 0 /uL (0-100); Basophils Percent Auto 1.2 % (0-2); Eosinophils Absolute Auto 0 /uL (0-450); Eosinophils Percent Auto 1.2 % (2-4); Hematocrit 29.3 % (41-53); Hemoglobin 9.7 g/dL (13.5-17.5); Lymphocytes Absolute Auto 400 /uL (1100-4500); Lymphocytes Percent Auto 12.7 % (25-40); Mean Corpuscular Hemoglobin 31.5 PG (26-34); Mean Corpuscular Volume 95.5 fL (80-100); Monocytes Absolute Auto 300 /uL (0-900); Monocytes Percent Auto 8.9 % (3-14); Neutrophils Absolute Auto 2500 /uL (1500-7000); Platelet Count 96 X10^3/uL (150-400); Red Blood Cell Count 3.07 X10^6/uL (4.5-5.9); Red Cell Distribution Width 16.5 % (11.6-14.8); White Blood Cell Count 3.3 X10^3/uL (4.5-11.0)
[2021-08-14 02:32] LABS: Alanine Aminotransferase 15 IU/L (<50); Albumin 3.6 g/dL (3.5-5.0); Albumin Globulin Ratio 1.3 (1.0-2.8); Alkaline Phosphatase 59 U/L (38-126); Aspartate Aminotransferase 27 IU/L (17-59); BUN Creatinine Ratio 16.7 (6-22); Bilirubin Total 0.5 mg/dL (0.2-1.3); Blood Urea Nitrogen 51 mg/dL (9-20); Calcium 8.5 mg/dL (8.4-10.2); Carbon Dioxide 26 mmol/L (22-32); Chloride 109 mmol/L (98-107); Creatine Kinase 117 U/L (55-170); Estimated Glomerular Filt Rate 19.8 mL/min (>60); Globulin 2.7 g/dL (1.7-4.1); Glucose 123 mg/dL (80-110); HEMOLYSIS < 15 (0-50); Lactate (Lactic Acid) 0.8 mmol/L (0.7-2.1); Magnesium 2.2 mg/dL (1.6-2.3); Potassium 4.5 mmol/L (3.4-5.1); Sodium 139 mmol/L (137-145); Total Protein 6.3 g/dL (6.3-8.2)
[2021-08-14 02:41] LABS: NT-proBNP (BNP-Adult 18+) 9000 pg/mL (<450)
[2021-08-14 02:47] LABS: CKMB % Relative Index 2.1 % (1.5-5.0); Creatine Kinase MB 2.42 ng/mL (<2.37)
[2021-08-14 02:49] LABS: Procalcitonin 0.09 ng/mL (<0.5)
[2021-08-14] MEDS: FUROSEMIDE 40 MG/4 ML VIAL IV (03:39)
[2021-08-14 04:47] LABS: D Dimer 1922 ng/mL (<230)
[2021-08-14] MEDS: ACETAMINOPHEN 325 MG TABLET 975 MG PO (04:52)
[2021-08-14 05:02] LABS: Troponin I 0.308 ng/mL (0.01-0.034)
[2021-08-14] MEDS: PIPERACILLIN/TAZO 4.5 GM in SODIUM CHLORIDE 0.9% 100 ML 200 ML IV (05:10)
--- NOTE | 2021-08-14 07:27 | PC.NURSE ---
checked on patient: He reports feeling better than when he came in. Discussed code status with him and he stated, I think I would like all the interventions.
== END 2021-08-14 08:59 | disposition short-term general hospital (02) ==
PROVIDERS: Emergency Provider Emergency Medicine; PCP Internal Medicine
DX: I21.4 Non-ST elevation (NSTEMI) myocardial infarction (principal); D69.6 Thrombocytopenia, unspecified; D46.9 Myelodysplastic syndrome, unspecified; I12.9 Hypertensive chronic kidney disease with stage 1 through stage 4 chronic kidney disease, or unspecified chronic kidney disease; I11.0 Hypertensive heart disease with heart failure; Z20.822 Contact with and (suspected) exposure to COVID-19; Z87.891 Personal history of nicotine dependence
CPT/HCPCS: 36415; 71045; 80053; 81003; 82550; 82553; 83605; 83735; 83880; 84145; 84484; 85025; 85379; 86850; 86900; 86901; 87040; 87635; 93005; 96365; 96375; 99284; 99285; C9803; J1940; J2543

== ENCOUNTER → 2021-08-24 15:46 | Outpatient (CLI) | payer MEDICARE, SELFPAY ==
[2021-08-24 16:50] LABS: BUN Creatinine Ratio 24.1 (6-22); Blood Urea Nitrogen 82 mg/dL (9-20); Calcium 9.5 mg/dL (8.4-10.2); Carbon Dioxide 29 mmol/L (22-32); Chloride 106 mmol/L (98-107); Estimated Glomerular Filt Rate 17.4 mL/min (>60); Glucose 98 mg/dL (80-110); HEMOLYSIS < 15 (0-50); Magnesium 2.4 mg/dL (1.6-2.3); Phosphorous 4.9 mg/dL (2.3-3.7); Sodium 139 mmol/L (137-145); Uric Acid 9.6 mg/dL (3.5-8.5)
[2021-08-24 17:42] LABS: Creatinine Urine Random 46.1 mg/dL
[2021-08-24 17:46] LABS: Microalbumi Creatinin Ratio Ur 214.7 ug/mg CR (<30); Microalbumin Urine Random 9.9 mg/dL (0-1.6)
[2021-08-24 18:08] LABS: Add Manual Diff / Slide Review YES; Hematocrit 24.3 % (41-53); Hemoglobin 8.1 g/dL (13.5-17.5); Mean Corpuscular HGB Conc 33.2 % (30-36); Mean Corpuscular Volume 96.4 fL (80-100); Platelet Count 114 X10^3/uL (150-400); Red Blood Cell Count 2.52 X10^6/uL (4.5-5.9); Red Cell Distribution Width 16.8 % (11.6-14.8); White Blood Cell Count 4.1 X10^3/uL (4.5-11.0)
[2021-08-24 18:11] LABS: Microcytosis 1+; Neutrophils Absolute Manual 2829 /uL (3000-5900); Nucleated Red Blood Cells 2 #/Diff; Poikilocytosis 1+; Polychromasia 2+; Tear Drop Cells 1+; Total Cells Counted 100
[2021-08-24 18:13] LABS: Spherocytes 1+
== END ==
PROVIDERS: PCP Internal Medicine; Referring Provider Internal Medicine Nephrology; Visit Provider Internal Medicine Nephrology
DX: N18.4 Chronic kidney disease, stage 4 (severe) (principal)
CPT/HCPCS: 36415; 80048; 82043; 82570; 83735; 84100; 84550; 85007; 85025

== ENCOUNTER → 2021-09-02 09:06 | Outpatient (CLI) | payer MEDICARE, SELFPAY ==
[2021-09-02 10:31] VITALS: BP 106/64; PULSE 70; RESP 16; TEMP 36.9; O2SAT 94
[2021-09-02] MEDS: EPOETIN ALFA-EPBX 40,000 UNIT/ML VIAL 40000 UNIT SUBCUT (12:03)
== END ==
PROVIDERS: PCP Internal Medicine; Referring Provider Internal Medicine Hematology & Oncology; Visit Provider Internal Medicine Hematology & Oncology
DX: D46.9 Myelodysplastic syndrome, unspecified (principal); I12.9 Hypertensive chronic kidney disease with stage 1 through stage 4 chronic kidney disease, or unspecified chronic kidney disease; N18.4 Chronic kidney disease, stage 4 (severe); D63.1 Anemia in chronic kidney disease; E78.5 Hyperlipidemia, unspecified; R06.02 Shortness of breath
CPT/HCPCS: 36415; 36430; 86850; 86900; 86901; 96372; 99214; P9016; Q5106

== ENCOUNTER → 2021-09-16 08:18 | Outpatient (CLI) | payer MEDICARE, SELFPAY ==
[2021-09-16] MEDS: EPOETIN ALFA-EPBX 40,000 UNIT/ML VIAL 40000 UNIT SUBCUT (10:06)
== END ==
PROVIDERS: PCP Internal Medicine; Referring Provider Internal Medicine Hematology & Oncology; Visit Provider Internal Medicine Hematology & Oncology
DX: D46.9 Myelodysplastic syndrome, unspecified (principal); I13.0 Hypertensive heart and chronic kidney disease with heart failure and stage 1 through stage 4 chronic kidney disease, or unspecified chronic kidney disease; I50.31 Acute diastolic (congestive) heart failure; N18.4 Chronic kidney disease, stage 4 (severe); D63.1 Anemia in chronic kidney disease; I34.0 Nonrheumatic mitral (valve) insufficiency; E78.5 Hyperlipidemia, unspecified; N40.1 Benign prostatic hyperplasia with lower urinary tract symptoms
CPT/HCPCS: 36430; 86850; 86900; 86901; 96372; 99214; P9016; J1940; Q5106

== ENCOUNTER 2021-09-17 06:36 | Inpatient (IN) | payer MEDICARE, SELFPAY ==
[2021-09-17] VITALS (24 sets, daily range): BP systolic 120–155; BP diastolic 60–80; PULSE 60–75; RESP 14–21; TEMP 36.3–36.7; O2SAT 97–100; BMI 25.0
--- NOTE | 2021-09-17 07:13 | ED.GIBLEED ---
HPI - GI Bleed General Chief complaint: GI Bleed Stated complaint: bleeding from rectum/x3 days Time Seen by Provider: 09/17/21 07:12 Source: patient and family Mode of arrival: Ambulatory History of Present Illness HPI Narrative: The patient presents with 3 days of dark BMs, apparently presence of blood. He denies prior history of GI bleeding. He has no abdominal pain. His appetite is normal. He denies chest pain, palpitations, weakness or dizziness. He has myeloproliferative disorder, he received 1 unit of PRBCs yesterday for chronic anemia. He has recently been admitted here with CHF. He has severe mitral regurgitation, after initially going to [facility], he was transferred to [facility] in [place] and had a clip placed in his mitral valve, apparently successfully managing his CHF. He was discharged on aspirin and Plavix. He has been out the hospital only days, now presenting with the concern for GI bleeding. Related Data Home Medications Medication Instructions Recorded Confirmed ASPIRIN (#ASPIRIN) 81 mg PO Q DAY #0 12/13/11 09/17/21 cholecalciferol (vitamin D3) 25 1,000 unit PO DAILY 12/02/19 09/17/21 mcg (1,000 unit) capsule atorvastatin 40 mg tablet 40 mg PO DAILY tab 09/16/21 09/17/21 clopidogrel 75 mg tablet 75 mg PO DAILY 09/16/21 09/17/21 Previous Rx's Medication Instructions Recorded Disabled Parking #1 ea 08/30/21 allopurinol 100 mg tablet 200 mg PO DAILY #90 tab 09/01/21 Allergies Allergy/AdvReac Type Severity Reaction Status Date / Time benazepril [BENAZEPRIL] Allergy Severe Unknown Verified 09/16/21 16:06 clonidine [CLONIDINE] Allergy Intermediate Verified 09/16/21 16:06 hydrocodone [HYDROCODONE] Allergy Mild Verified 09/16/21 16:06 Review of Systems Constitutional Constitutional: Reports as per HPI, Denies body ache(s), Denies chills, Denies headache(s) and Denies weakness Eyes Eyes: Denies blurry vision and Denies change in vision ENT Ears, Nose, Mouth, and Throat: Denies vertigo, Denies dizziness, Denies headache(s), Denies neck pain and Denies sore throat Cardiovascular Cardiovascular: Denies chest pain, Denies syncope, Denies rapid heart rate and Denies dyspnea Respiratory Respiratory: Denies chest congestion, Denies cough and Denies dyspnea Gastrointestinal Gastrointestinal: Denies abdominal pain, Reports melena and Denies coffee ground emesis Genitourinary Genitourinary: Denies dysuria and Denies urinary frequency Musculoskeletal Musculoskeletal: Denies back pain and Denies neck pain Neurologic Neurologic: Denies vertigo, Denies dizziness, Denies syncope, Denies headache(s) and Denies weakness Psychiatric Psychiatric: Denies anxiety Hematologic/Lymphatic On Anticoagulants: Yes Patient History Medical History Abdominal aortic aneurysm (AAA) 3.0 cm to 5.5 cm in diameter in male (05/17/11) Aortic stenosis Chronic renal failure, stage 4 (severe) Coronary artery disease Diverticular disease Diverticulosis of colon (05/17/11) Elevated PSA Essential hypertension Foot pain (2002) Gout (1987) Hematuria (~2018) Iron deficiency Mixed hyperlipidemia Plantar warts Severe mitral regurgitation Shoulder pain Thrombocytopenia Tinnitus Surgical History Anesthesia History of penile implant (~2000) History of penile implant (~1984) Status post abdominal aortic aneurysm (AAA) repair Status post hernia repair (1969) Status post implantation of mitral valve leaflet clip (~08/2021) Status post tonsillectomy and adenoidectomy Family History Child Age: 57 MS (multiple sclerosis) Child Age: 55 High cholesterol Father Hypertension High cholesterol Bladder cancer Skin cancer Pneumonia Mother Heart disease Hypertension High cholesterol Cancer Sister Age: 83 Cancer High cholesterol Osteoporosis Breast cancer Social History marital status: household members: spouse lives independently: Yes caregiver/support person: No housing: house pets and animals: No education level: college occupational status: other current occupational exposures/hazards: No Smoking Status: Former smoker Smokeless tobacco user: other quit status: quit date established alcohol intake: current substance use type: does not use Smoking Status: Former smoker alcohol intake frequency: 0-2 drinks per day Substance Use Type: does not use Exam Initial Vital Signs Initial Vital Signs: Vital Signs Pulse Rate 75 09/17/21 06:45 Blood Pressure 120/61 01/28/22 06:45 Pulse Oximetry 99 09/17/21 06:45 Const General: cooperative, comfortable, well groomed and No acute distress [facility] Head: normal to inspection, normocephalic and atraumatic Face and sinus: normal facial exam Mouth: oral mucosae normal Eyes General: appearance normal, both eyes and all related structures Neck Neck: No JVD Chest Chest: normal inspection of the chest Resp Auscultation: clear to auscultation bilaterally Cardio Rhythm: regular rhythm Heart Sounds: S1 normal, S2 normal, no click, no murmurs and no rubs GI Inspection: normal to inspection and non-distended Palpation: soft and No tender Auscultation: normal bowel sounds Rectal Exam: normal sphincter tone, prostate normal, heme positive stool, No mass and No tenderness Back/Spine/Pelvis Back: normal to inspection and No back tenderness Skin General: no rashes or lesions noted Neuro General: patient alert, patient awake, patient oriented x3 and no focal motor deficits Extrem General: normal to inspection, no pedal edema and no calf tenderness Psych Mental Status: mental status grossly normal Course Course Course Narrative: The patient was given IV Protonix upon arrival. His a sessile H is less than labs from 2 days ago prior to his transfusion. Transfusion of 2 units PRBCs was initiated. His PCM, Dr. Sanchez was consulted. The patient will be admitted. Orders Ordered: ED Orders 09/17/21 15:25 Hemoglobin and Hematocrit Urgent 09/18/21 05:00 Basic Metabolic Panel Routine Complete Blood Count AUTO DIFF Routine Acetaminophen (Acetaminophen 325 Mg Tablet) 650 mg PO Q6HR PRN PRN Reason: Fever/Mild Pain (1-3) Allopurinol (Allopurinol 100 Mg Tablet) 200 mg PO DAILY [facility] Last Admin: 09/17/21 12:11 Dose: 200 mg Documented by: AZALEA Atorvastatin Calcium (Atorvastatin 20 Mg Tablet) 40 mg PO DAILY [facility] Last Admin: 09/17/21 12:10 Dose: 40 mg Documented by: AZALEA Naloxone HCl (Naloxone 0.4 Mg/Ml Vial) 0.2 mg IV Q2MIN PRN PRN Reason: Opiate Reversal Pantoprazole Sodium (Pantoprazole 40 Mg Vial) 40 mg IV BID [facility] Vitamin D (Cholecalciferol (Vitamin D3) 1,000 Unit Tablet) 1,000 unit PO DAILY [facility] Last Admin: 09/17/21 12:11 Dose: 1,000 unit Documented by: AZALEA Discontinued Medications Pantoprazole Sodium (Pantoprazole 40 Mg Vial) 40 mg IV NOW ONE Stop: 09/17/21 07:36 Last Admin: 09/17/21 07:58 Dose: 40 mg Documented by: CANDICE Vital Signs Vital signs: Vital Signs - 8 hr 09/17/21 06:45 09/17/21 08:31 Temperature 98 F Pulse Rate 75 65 Respiratory Rate 18 Blood Pressure 120/61 143/65 H Pulse Oximetry 99 MDM - GI Bleed Lab Data Result diagrams: 09/17/21 15:25 09/17/21 06:55 Labs: Lab Results 09/17/21 09/17/21 09/17/21 Range/Units 06:55 06:55 06:55 WBC 3.2 L (4.5-11.0) X10^3/uL RBC 2.10 L (4.5-5.9) X10^6/uL Hgb 6.7 L* (13.5-17.5) g/dL Hct 20.0 L* (41-53) % MCV 95.5 (80-100) fL MCH 32.0 (26-34) PG MCHC 33.5 (30-36) % RDW 17.6 H (11.6-14.8) % Plt Count 73 L (150-400) X10^3/uL Neut % (Auto) 52.0 (50-75) % Lymph % (Auto) 27.3 (25-40) % [place] % (Auto) 12.3 (3-14) % Eos % (Auto) 6.4 H (2-4) % Baso % (Auto) 2.0 (0-2) % Neut # (Auto) 1600 (4200-5206) /uL Lymph # (Auto) 900 L (7132-1154) /uL [place] # (Auto) 400 (0-900) /uL Eos # (Auto) 200 (0-450) /uL Baso # (Auto) 100 (0-100) /uL RBC Morphology See below Anisocytosis 2+ H PT 13.4 H (10.1-12.7) SECONDS INR 1.2 (0.9-1.3) Sodium 141 (137-145) mmol/L Potassium 4.6 (3.4-5.1) mmol/L Chloride 112 H (98-107) mmol/L Carbon Dioxide 29 (22-32) mmol/L BUN 73 H (9-20) mg/dL Creatinine 2.60 H (0.66-1.25) mg/dL Estimated GFR 23.7 L (>60) mL/min BUN/Creatinine Ratio 28.1 H (6-22) Glucose 100 (80-110) mg/dL Calcium 7.9 L (8.4-10.2) mg/dL Total Bilirubin 0.4 (0.2-1.3) mg/dL AST 22 (17-59) IU/L ALT 12 (<50) IU/L Alkaline Phosphatase 49 (38-126) U/L Total Protein 4.9 L (6.3-8.2) g/dL Albumin 2.7 L (3.5-5.0) g/dL Globulin 2.2 (1.7-4.1) g/dL Albumin/Globulin Ratio 1.2 (1.0-2.8) SARS-CoV-2 (PCR) (Negative) Blood Type Antibody Screen Crossmatch 09/17/21 09/17/21 Range/Units 06:55 08:15 WBC (4.5-11.0) X10^3/uL RBC (4.5-5.9) X10^6/uL Hgb (13.5-17.5) g/dL Hct (41-53) % MCV (80-100) fL MCH (26-34) PG MCHC (30-36) % RDW (11.6-14.8) % Plt Count (150-400) X10^3/uL Neut % (Auto) (50-75) % Lymph % (Auto) (25-40) % [place] % (Auto) (3-14) % Eos % (Auto) (2-4) % Baso % (Auto) (0-2) % Neut # (Auto) (8676-6136) /uL Lymph # (Auto) (0982-2117) /uL [place] # (Auto) (0-900) /uL Eos # (Auto) (0-450) /uL Baso # (Auto) (0-100) /uL RBC Morphology Anisocytosis PT (10.1-12.7) SECONDS INR (0.9-1.3) Sodium (137-145) mmol/L Potassium (3.4-5.1) mmol/L Chloride (98-107) mmol/L Carbon Dioxide (22-32) mmol/L BUN (9-20) mg/dL Creatinine (0.66-1.25) mg/dL Estimated GFR (>60) mL/min BUN/Creatinine Ratio (6-22) Glucose (80-110) mg/dL Calcium (8.4-10.2) mg/dL Total Bilirubin (0.2-1.3) mg/dL AST (17-59) IU/L ALT (<50) IU/L Alkaline Phosphatase (38-126) U/L Total Protein (6.3-8.2) g/dL Albumin (3.5-5.0) g/dL Globulin (1.7-4.1) g/dL Albumin/Globulin Ratio (1.0-2.8) SARS-CoV-2 (PCR) Negative (Negative) Blood Type O Positive Antibody Screen Negative Crossmatch See Detail Critical Care Time Critical Care Time Critical Care Time: Yes Total Critical Care Time: 35 Attestation: Care included the initial assessed the patient, review of lab data and medical records, and informing the patient of the clinical findings. Care included consultation with his PCM. Discharge Plan Departure Patient Disposition: Admitted as Observation Clinical Impression: Acute GI bleeding, Chronic renal failure, stage 4 (severe), Chronic anemia Admit Date/Time: 09/17/21 08:59 Admit Provider: Randolph Sanchez
[2021-09-17 07:21] LABS: INR 1.2 (0.9-1.3); Prothrombin Time 13.4 SECONDS (10.1-12.7)
[2021-09-17 07:23] LABS: Basophils Absolute Auto 100 /uL (0-100); Eosinophils Absolute Auto 200 /uL (0-450); Eosinophils Percent Auto 6.4 % (2-4); Lymphocytes Absolute Auto 900 /uL (1100-4500); Lymphocytes Percent Auto 27.3 % (25-40); Mean Corpuscular HGB Conc 33.5 % (30-36); Mean Corpuscular Volume 95.5 fL (80-100); Monocytes Absolute Auto 400 /uL (0-900); Monocytes Percent Auto 12.3 % (3-14); Neutrophils Absolute Auto 1600 /uL (1500-7000); Platelet Count 73 X10^3/uL (150-400); Red Cell Distribution Width 17.6 % (11.6-14.8); White Blood Cell Count 3.2 X10^3/uL (4.5-11.0)
[2021-09-17 07:25] LABS: Alanine Aminotransferase 12 IU/L (<50); Albumin 2.7 g/dL (3.5-5.0); Albumin Globulin Ratio 1.2 (1.0-2.8); Alkaline Phosphatase 49 U/L (38-126); Aspartate Aminotransferase 22 IU/L (17-59); BUN Creatinine Ratio 28.1 (6-22); Bilirubin Total 0.4 mg/dL (0.2-1.3); Blood Urea Nitrogen 73 mg/dL (9-20); Calcium 7.9 mg/dL (8.4-10.2); Carbon Dioxide 29 mmol/L (22-32); Chloride 112 mmol/L (98-107); Estimated Glomerular Filt Rate 23.7 mL/min (>60); Globulin 2.2 g/dL (1.7-4.1); Glucose 100 mg/dL (80-110); HEMOLYSIS < 15 (0-50); Potassium 4.6 mmol/L (3.4-5.1); Sodium 141 mmol/L (137-145); Total Protein 4.9 g/dL (6.3-8.2)
[2021-09-17 07:28] LABS: Hemoglobin 6.7 g/dL (13.5-17.5)
[2021-09-17 07:29] LABS: Add Manual Diff / Slide Review SLIDE REVIEW
[2021-09-17] MEDS: PANTOPRAZOLE 40 MG VIAL IV ×2 (07:58→20:18)
[2021-09-17 08:15] LABS: Anisocytosis 2+
[2021-09-17 08:38] LABS: COVID19 -Nasal RAPID Negative (Negative)
--- NOTE | 2021-09-17 08:59 | PM.HP.1 ---
History of Present Illness History of Present Illness Date Patient Seen: 09/17/21 Time Patient Seen: 09:00 Chief complaint: bleeding from rectum/x3 days Narrative: 80-year-old male well known to me actually seen in the clinic day before admission who presented to the [facility] Emergency Department with dark red stool from the rectum. No real abdominal symptoms. This been going on for more than 1 day. Patient with chronic myeloproliferative disorder (MDS) received 1 unit of packed red cells yesterday because of his chronic anemia in the ER found to be even more anemic. Obvious maroon-colored stool coming from the rectum per ER physician Patient recently hospitalized in [place] because of acute congestive heart failure thought to be secondary to severe mitral regurgitation. In [place] he underwent a procedure to clip the mitral valve which improved his mitral valve function and resolved his congestive heart failure. He was placed on aspirin and Plavix following this procedure which he had not been on previously. He was discharged from [facility] in [place] on September 10 of this year. It was several days following this that he began to have the bleeding as above Recently he has had no symptoms of respiratory distress which is how he presented on 2020 with his congestive heart failure thought to be secondary to the rather acute severe mitral regurgitation. Patient also with significant stage 4 chronic kidney disease which was much worse when he was being aggressively diuresed because of his volume overload/heart failure. Much improved recently in fact improved on today's labs in the emergency department Patient with longstanding myelodysplastic syndrome with pancytopenia including thrombocytopenia. Platelet count however stable at 73,000 and not likely contributing to his ongoing bleeding Other than the blood per rectum patient is really quite asymptomatic and is admitted for transfusion and monitoring Patient History Medical History Abdominal aortic aneurysm (AAA) 3.0 cm to 5.5 cm in diameter in male (05/17/11) Aortic stenosis Chronic renal failure, stage 4 (severe) Coronary artery disease Diverticular disease Diverticulosis of colon (05/17/11) Elevated PSA Essential hypertension Foot pain (2002) Gout (1987) Hematuria (~2018) Iron deficiency Mixed hyperlipidemia Plantar warts Severe mitral regurgitation Shoulder pain Thrombocytopenia Tinnitus Surgical History Anesthesia History of penile implant (~2000) History of penile implant (~1984) Status post abdominal aortic aneurysm (AAA) repair Status post hernia repair (1969) Status post implantation of mitral valve leaflet clip (~08/2021) Status post tonsillectomy and adenoidectomy Family & Social History Family History Child Age: 57 MS (multiple sclerosis) Child Age: 55 High cholesterol Father Hypertension High cholesterol Bladder cancer Skin cancer Pneumonia Mother Heart disease Hypertension High cholesterol Cancer Sister Age: 83 Cancer High cholesterol Osteoporosis Breast cancer Social History: household members spouse lives independently Yes caregiver/support person No Safety & Behavioral: Feels Safe in Current Yes Environment Been Physically Hurt or No Threatened By a Person Tobacco & Substance use: Smoking Status Former smoker alcohol intake current alcohol intake frequency 0-2 drinks per day Substance Use Type does not use Meds Home Medications and Allergies Home Medications Medication Instructions Recorded Confirmed Type ASPIRIN (#ASPIRIN) 81 mg PO Q DAY #0 12/13/11 09/16/21 History cholecalciferol (vitamin D3) 25 25 mcg PO DAILY 12/02/19 09/16/21 History mcg (1,000 unit) capsule Disabled Parking #1 ea 08/30/21 09/16/21 Rx allopurinol 100 mg tablet 200 mg PO DAILY #90 tab 09/01/21 09/16/21 Rx atorvastatin 40 mg tablet 40 mg PO DAILY tab 09/16/21 09/16/21 History clopidogrel 75 mg tablet 75 mg PO DAILY 09/16/21 09/16/21 History Allergies Allergy/AdvReac Type Severity Reaction Status Date / Time benazepril [BENAZEPRIL] Allergy Severe Unknown Verified 09/16/21 16:06 clonidine [CLONIDINE] Allergy Intermediate Verified 09/16/21 16:06 hydrocodone [HYDROCODONE] Allergy Mild Verified 09/16/21 16:06 Exam Vital Signs (past 8 hours): - 09/17/21 06:45 09/17/21 07:01 09/17/21 07:25 Temperature Pulse Rate 75 70 Respiratory Rate Blood Pressure 120/61 121/62 Pulse Oximetry 99 99 99 09/17/21 08:03 09/17/21 08:05 09/17/21 08:30 Temperature 98 F 98 F Pulse Rate 68 65 Respiratory Rate 21 17 Blood Pressure 147/69 H 143/65 H Pulse Oximetry 100 100 09/17/21 08:31 09/17/21 08:45 09/17/21 08:48 Temperature 98 F 98 F 98 F Pulse Rate 65 63 64 Respiratory Rate 18 18 18 Blood Pressure 143/65 H 133/60 133/60 Pulse Oximetry 100 Oxygen Delivery Method Room Air Narrative Exam Narrative: Non ill-appearing elderly male lying in hospital bed in no obvious distress HEENT unremarkable Lungs-clear with good breath sounds Heart-regular rate and rhythm no murmur Abdomen-benign positive bowel tones soft nontender nondistended Extremities-no cyanosis clubbing or edema Objective Labs Result Diagrams: 09/17/21 06:55 09/17/21 06:55 Labs: Laboratory Results - last 24 hr 09/17/21 09/17/21 09/17/21 06:55 06:55 06:55 WBC 3.2 L RBC 2.10 L Hgb 6.7 L* Hct 20.0 L* MCV 95.5 MCH 32.0 MCHC 33.5 RDW 17.6 H Plt Count 73 L Neut % (Auto) 52.0 Lymph % (Auto) 27.3 [place] % (Auto) 12.3 Eos % (Auto) 6.4 H Baso % (Auto) 2.0 Neut # (Auto) 1600 Lymph # (Auto) 900 L [place] # (Auto) 400 Eos # (Auto) 200 Baso # (Auto) 100 RBC Morphology See below Anisocytosis 2+ H PT 13.4 H INR 1.2 Sodium 141 Potassium 4.6 Chloride 112 H Carbon Dioxide 29 BUN 73 H Creatinine 2.60 H Estimated GFR 23.7 L BUN/Creatinine Ratio 28.1 H Glucose 100 Calcium 7.9 L Total Bilirubin 0.4 AST 22 ALT 12 Alkaline Phosphatase 49 Total Protein 4.9 L Albumin 2.7 L Globulin 2.2 Albumin/Globulin Ratio 1.2 SARS-CoV-2 (PCR) Blood Type Antibody Screen Crossmatch 09/17/21 09/17/21 06:55 08:15 WBC RBC Hgb Hct MCV MCH MCHC RDW Plt Count Neut % (Auto) Lymph % (Auto) [place] % (Auto) Eos % (Auto) Baso % (Auto) Neut # (Auto) Lymph # (Auto) [place] # (Auto) Eos # (Auto) Baso # (Auto) RBC Morphology Anisocytosis PT INR Sodium Potassium Chloride Carbon Dioxide BUN Creatinine Estimated GFR BUN/Creatinine Ratio Glucose Calcium Total Bilirubin AST ALT Alkaline Phosphatase Total Protein Albumin Globulin Albumin/Globulin Ratio SARS-CoV-2 (PCR) Negative Blood Type O Positive Antibody Screen Negative Crossmatch See Detail Assessment & Plan Assessment & Plan narrative: 1. Acute blood loss anemia-likely secondary to the combination of Plavix and aspirin causing some sort of GI bleed. Symptoms would suggest probably lower GI given lack of upper symptoms and the fact that we actually seeing maroon stool. This point however he does need transfusion given his coronary artery disease I would aim for hemoglobin/hematocrit of 8/25 or higher. Patient also with chronic hematological disorder has obviously accommodated chronic anemia. 2. GI bleed-as above I suspect a lower GI bleed given the maroon stool and lack of upper GI symptoms. Patient is also hemodynamically stable which argue against large volume bleed which would be necessary if coming from upper tract to produce maroon stool at the rectum. At the moment I am merely going to discontinue his Plavix and aspirin and transfuse him and monitor his numbers. Probably would benefit from colonoscopy perhaps as an outpatient to further define what may may not be ongoing here. Somewhat hesitant to initiate that at this time with the more recent cardiac procedure as above. However if clinical situation suggest than colonoscopy prior to discharge would be certainly a appropriate 3. Cardiac-patient is status post recent procedure to place clip on mitral valve. This seem to significantly improve his mitral regurgitation and his heart failure. Patient seems to be euvolemic at this time. Patient is not a candidate to continue any sort of anticoagulation including his dual anti-platelet therapy at this time. Patient diagnosed also with coronary disease based on evidence of infarct on perfusion imaging but no clear evidence of reversible ischemia on that study. Therefore I think keeping hemoglobin hematocrit targets as above is appropriate. Patient also known to have moderate aortic stenosis but again shows no evidence of issues related to that at this time. Patient's blood pressure is okay for now. Patient had all of his antihypertensive therapies discontinued during his hospitalization in [place] and should remain off at this time. 4. Hematologic-patient with known MDS. Patient has been dependent on blood transfusion as well as erythropoietin agents etcetera. His anemia is probably in part also due to his chronic renal failure as well as his MDS. His numbers seem relatively stable overall except for the acute blood loss obviously. As above do not believe his thrombocytopenia is contributing to his ongoing bleeding and do not believe he would benefit from platelet transfusion at this time but will need to continue to monitor these numbers 5. Renal-patient's renal function actually is improved and probably at baseline. Numbers are better than they were just a couple days ago. This also suggest as above that he is not having large volume bleeding is not volume depleted. Therefore I am not going to anticipate use of IV fluids for support especially in the face of giving him blood products. 6. VTE prophylaxis-because of ongoing bleeding patient not a candidate for any sort of chemoprophylaxis with Lovenox etcetera. SCDs will be employed and are appropriate. 7. Code status-patient requests and is appropriate for full code status in event of sudden cardiac or respiratory arrest which is not at all anticipated of course. Time Spent With Patient Critical Care time: I spent a total of [] minutes of critical care time on this patient's care today; this time is exclusive of procedural time.
[2021-09-17] MEDS: ATORVASTATIN 20 MG TABLET 40 MG PO (12:10)
[2021-09-17] MEDS: CHOLECALCIFEROL (VITAMIN D3) 1,000 UNIT TABLET 1000 UNIT PO (12:11)
[2021-09-17] MEDS: allopurinoL 100 MG TABLET 200 MG PO (12:11)
[2021-09-17 15:39] LABS: Hematocrit 26.1 % (41-53); Hemoglobin 8.9 g/dL (13.5-17.5)
--- NOTE | 2021-09-17 17:47 | DIET.CONS ---
Dietary Consultation Note Admission Date: 09/17/2021 08:59 Assessment: 80 y/o M c PMH CKD GFR 23.7L and Cr 2.6H. Was on 2g Na diet upon admission. Reports difficulty eating secondary to loss of appetite, difficulty eating when he was experiencing HF at last hospital stay, and changes in taste, which can be r/t to CKD. Limits Na and K normally. Likes ensure vanilla. Eats 2 meals per day with few to no snacks. Diet recall: B: cereal or eggs L or D: sandwich or soup or salmon with carrots and potato Nutrition focused exam: severe scooping of temporal region, Severe muscle wasting in orbital and interosseous muscle, protruding clavical and box shoulders. Significant unintentional weight loss: -10.5% over 2 weeks -13.2% over 3 months (severe) -18.2% over 6 months (severe) Ht: 182.88 cm Wt: 83.5 kg BMI: 25.0 Last BM: () MNA: 9 Hayden Score: 20 Diet: 09/17/21 Lunch Low Sodium Diet (2gm) Diet Modifications: 09/18/21 Breakfast Renal Diet Diet Modifications: ensure van w/breakfst; dairy 1 serving per meal Renal Specifics: 2gm Sodium Restriction Limited Phosphorus Labs: RBC 2.10 X10^6/uL (4.5-5.9) L 09/17/21 06:55 Hgb 8.9 g/dL (13.5-17.5) L 09/17/21 15:25 Hct 26.1 % (41-53) L 09/17/21 15:25 Creatinine 2.60 mg/dL (0.66-1.25) H 09/17/21 06:55 Nutrition Diagnosis: Chronic severe protein malnutrition r/t loss of appetite, difficulty with taste aeb significant weight loss of 13.2% in 3 months, noticeable muscle wasting upon nutrition focused exam Interventions: 1. ONS daily to support kcal and protein needs 2. Changed to Renal diet to support CKD and elevated phos EER: 2300 kcal (28kcal/kg per BMI) PRO: 42-50g (per 0.5-0.6g/kg per CKD) Monitoring/Evaluations: RD f/u in 3-5 days Electronically Signed by: Tiffanie Myers 09/17/21 17:47 Clinical Dietitian [address] [id number]
--- NOTE | 2021-09-17 19:44 | PC.NURSE ---
Pt arrived from ED at 1030. A&Ox3, VSS, afebrile on RA.He received 1 unit of blood in the ED and one unit of blood upon arriving to the unit. He tolerated them well. He is ambulatory in the room independently, voiding adequately. He denies pain. His repeat H/H is improved and he has no further bloody BM's this shift. Continuous monitoring.
[2021-09-18] VITALS (17 sets, daily range): BP systolic 110–149; BP diastolic 69–82; PULSE 72–80; RESP 17–19; TEMP 36.3–36.8; O2SAT 97–100
[2021-09-18 05:38] LABS: Add Manual Diff / Slide Review NO; Basophils Absolute Auto 100 /uL (0-100); Basophils Percent Auto 2.2 % (0-2); Eosinophils Absolute Auto 100 /uL (0-450); Eosinophils Percent Auto 4.4 % (2-4); Lymphocytes Absolute Auto 800 /uL (1100-4500); Lymphocytes Percent Auto 27.1 % (25-40); Mean Corpuscular HGB Conc 33.5 % (30-36); Mean Corpuscular Hemoglobin 30.7 PG (26-34); Mean Corpuscular Volume 91.6 fL (80-100); Monocytes Absolute Auto 400 /uL (0-900); Monocytes Percent Auto 11.5 % (3-14); Neutrophils Absolute Auto 1700 /uL (1500-7000); Neutrophils Percent Auto 54.8 % (50-75); Platelet Count 57 X10^3/uL (150-400); Red Blood Cell Count 2.29 X10^6/uL (4.5-5.9); White Blood Cell Count 3.1 X10^3/uL (4.5-11.0)
[2021-09-18 05:43] LABS: BUN Creatinine Ratio 26.5 (6-22); Blood Urea Nitrogen 68 mg/dL (9-20); Calcium 7.5 mg/dL (8.4-10.2); Carbon Dioxide 26 mmol/L (22-32); Chloride 113 mmol/L (98-107); Estimated Glomerular Filt Rate 24.1 mL/min (>60); Glucose 115 mg/dL (80-110); HEMOLYSIS < 15 (0-50); Potassium 4.5 mmol/L (3.4-5.1); Sodium 139 mmol/L (137-145)
[2021-09-18] MEDS: allopurinoL 100 MG TABLET 200 MG PO (08:59)
[2021-09-18] MEDS: ATORVASTATIN 20 MG TABLET 40 MG PO (08:59)
[2021-09-18] MEDS: PANTOPRAZOLE 40 MG VIAL IV ×2 (08:59→21:29)
--- NOTE | 2021-09-18 09:16 | CM.DANOTE ---
DCP: Case received, EMR reviewed and met with patient. Introduced self and role. Was able to obtain information regarding patient's baseline activity status at home prior to hospitalization. DCP assessment completed with information currently available. Patient is an 80 year old male who admitted yesterday morning to the care of the hospitalist team. PCP: Dr. Sanchez. Payer: confirmed: [employer]. Patient came to the hospital via private vehicle secondary to having dark red stool from his rectal area which had been going on for over a day. Patient has history of chronic myeloproliferative disorder, and received a unit of packed RBC due to the chronic anemia. Patient had recently been hospitalized at [facility], he was transferred due to needing a mitral valve clip, and was discharged on 09/10. Patient holds current diagnosis of acute blood loss anemia. Met with patient in his room. He was ambulating independently, up at the sink. He is alert and oriented. He resides here in [place] with his spouse, Karime. He is independent at his baseline. P: DCP to continue to follow. Plan is for patient to go home when medically stable. Naty Chaudhry RN/Desk Lieutenant Discharge Planning/Care Management CM Discharge Assessment Start: 09/18/21 09:15 Freq: Status: Active Protocol: Document 09/18/21 09:15 (Rec: 09/18/21 09:16 [id number]) Discharge Planning Assessment Assigned Hand Stripper Naty Chaudhry RN/Desk Lieutenant Advance Directives? Yes Advance Directives on File No History Provided By Patient,Medical Record Prior Living Arrangements House Household Members spouse Type of transporation used prior to Drives own vehicle admit Independent with ADL's Yes Is patient alert and oriented? Yes Caregiver for Another No Barriers to Discharge No Discharge Plan Home Transportation Arrangement Spouse Referrals Initiated None needed Whiteboard Updated in Patient Room with Yes name and ext. # of Hand Stripper Review Status In Process Next Review Type Continued Stay Review
[2021-09-18 11:46] LABS: Add Manual Diff / Slide Review NO; Basophils Absolute Auto 100 /uL (0-100); Basophils Percent Auto 2.4 % (0-2); Eosinophils Absolute Auto 100 /uL (0-450); Eosinophils Percent Auto 3.1 % (2-4); Lymphocytes Absolute Auto 600 /uL (1100-4500); Lymphocytes Percent Auto 21.6 % (25-40); Mean Corpuscular HGB Conc 33.1 % (30-36); Mean Corpuscular Hemoglobin 30.6 PG (26-34); Mean Corpuscular Volume 92.5 fL (80-100); Monocytes Absolute Auto 300 /uL (0-900); Monocytes Percent Auto 11.2 % (3-14); Neutrophils Absolute Auto 1700 /uL (1500-7000); Neutrophils Percent Auto 61.7 % (50-75); Platelet Count 59 X10^3/uL (150-400); Red Blood Cell Count 2.21 X10^6/uL (4.5-5.9); White Blood Cell Count 2.8 X10^3/uL (4.5-11.0)
[2021-09-18 11:55] LABS: Hematocrit 20.4 % (41-53); Hemoglobin 6.8 g/dL (13.5-17.5)
--- NOTE | 2021-09-18 13:27 | PC.NURSE ---
Addendum entered by Rhonda Sellers R.N. 09/18/21 14:43: pt stressed about observation admit status. This Rn called and notified Dr. Turner; she stated she will change admit to regular admission Original Note: Signed blood consent in scanned docs 09/02/21
--- NOTE | 2021-09-18 13:59 | P.PN_ITS ---
Subjective Subjective Date Patient Seen: 09/18/21 Time Patient Seen: 09:30 Interval history: The pt reports that he is overall feeling well this morning. He continues to have bleeding with his BMs, and has had two far this morning already. He denies any chest pain or SOB. He did feel slightly lightheaded when going to the restroom this morning. He denies any abdominal pain. Exam Vital Signs (past 8 hours): - 09/18/21 08:00 09/18/21 09:00 09/18/21 09:20 Temperature 97.7 F Pulse Rate 75 75 Respiratory Rate 17 17 Blood Pressure 110/69 Pulse Oximetry 98 100 100 Oxygen Delivery Method Room Air Oxygen Flow Rate 0 Narrative Exam Narrative: Gen: NAD, sitting comfortably in chair, appears well, pleasantly conversant CV: RRR, no murmurs Resp: clear to auscultation bilaterally Abd: soft, nontender, nondistended, hyperactive bowel sounds Ext: no edema Objective Labs Result Diagrams: 09/18/21 11:41 09/18/21 04:50 Labs: Laboratory Results - last 24 hr 09/17/21 09/17/21 09/18/21 06:55 15:25 04:50 WBC 3.1 L RBC 2.29 L Hgb 8.9 L 7.0 L Hct 26.1 L 21.0 L MCV 91.6 D MCH 30.7 MCHC 33.5 RDW 19.0 H Plt Count 57 L Neut % (Auto) 54.8 Lymph % (Auto) 27.1 [place] % (Auto) 11.5 Eos % (Auto) 4.4 H Baso % (Auto) 2.2 H Neut # (Auto) 1700 Lymph # (Auto) 800 L [place] # (Auto) 400 Eos # (Auto) 100 Baso # (Auto) 100 Sodium Potassium Chloride Carbon Dioxide BUN Creatinine Estimated GFR BUN/Creatinine Ratio Glucose Calcium Crossmatch See Detail 09/18/21 09/18/21 04:50 11:41 WBC 2.8 L RBC 2.21 L Hgb 6.8 L* Hct 20.4 L* MCV 92.5 MCH 30.6 MCHC 33.1 RDW 19.0 H Plt Count 59 L Neut % (Auto) 61.7 Lymph % (Auto) 21.6 L [place] % (Auto) 11.2 Eos % (Auto) 3.1 Baso % (Auto) 2.4 H Neut # (Auto) 1700 Lymph # (Auto) 600 L [place] # (Auto) 300 Eos # (Auto) 100 Baso # (Auto) 100 Sodium 139 Potassium 4.5 Chloride 113 H Carbon Dioxide 26 BUN 68 H Creatinine 2.57 H Estimated GFR 24.1 L BUN/Creatinine Ratio 26.5 H Glucose 115 H Calcium 7.5 L Crossmatch [facility] Medical History Abdominal aortic aneurysm (AAA) 3.0 cm to 5.5 cm in diameter in male (05/17/11) Aortic stenosis Chronic renal failure, stage 4 (severe) Coronary artery disease Diverticular disease Diverticulosis of colon (05/17/11) Elevated PSA Essential hypertension Foot pain (2002) Gout (1987) Hematuria (~2018) Iron deficiency Mixed hyperlipidemia Plantar warts Severe mitral regurgitation Shoulder pain Thrombocytopenia Tinnitus Surgical History Anesthesia History of penile implant (~2000) History of penile implant (~1984) Status post abdominal aortic aneurysm (AAA) repair Status post hernia repair (1969) Status post implantation of mitral valve leaflet clip (~08/2021) Status post tonsillectomy and adenoidectomy Family History Child Age: 57 MS (multiple sclerosis) Child Age: 55 High cholesterol Father Hypertension High cholesterol Bladder cancer Skin cancer Pneumonia Mother Heart disease Hypertension High cholesterol Cancer Sister Age: 83 Cancer High cholesterol Osteoporosis Breast cancer Social History marital status: household members: spouse lives independently: Yes caregiver/support person: No housing: house pets and animals: No education level: college occupational status: other current occupational exposures/hazards: No Smoking Status: Former smoker Smokeless tobacco user: other quit status: quit date established alcohol intake: current substance use type: does not use Assessment & Plan Assessment & Plan narrative: Pt is a 80yo man with myelodysplastic syndrome, CKD, s/p recent clip placement on mitral valve for mitral regurgitation, and HTN who presented with hematochezia. 1.? Acute blood loss anemia: Most likely secondary to the combination of Plavix and aspirin causing some sort of GI bleed.? Symptoms would suggest probably lower GI given lack of upper symptoms and the fact that we actually seeing maroon stool. Good response to 2 units PRBCs transfusion yesterday, however with drop again this morning. - Tranfuse additional 2 units this morning - Repeat H/H after transfusion - Goal H/H 8 or higher due to cardiac issues 2. Likely lower GI bleed: Hemodynamically stable, which argues against large volume bleed which would be necessary if coming from upper tract to produce maroon stool at the rectum. H/H dropped again last night after good response to transfusion. Pt with ongoing bleeding with BMs. - Plavix and aspirin held at admission - Discussed with Dr Dotson today. Recommended continuing to monitor for now. Clear diet in the event that colonoscopy is needed. - Continue to trend H/H and monitor symptoms 3. Cardiac: S/P recent procedure to place clip on mitral valve.? This seem to significantly improve his mitral regurgitation and his heart failure.? Pt appears to remain euvolemic. BP remains in appropriate range. - Hold all anticoagulants as above for now - Continue to hold antihypertensives that were d/c'ed during hospitalization in [place] 4. Myelodysplastic syndrome: Has been dependent on tranfusions, etc. - Platelet count relatively stable, less likely cause of bleeding - Continue to trend, if dropping further consider platelet transfusion 5. CKD: Stable, actually improved. - Continue to monitor Code: Full Diet: Clears DVT PPx: SCDs, pt also ambulatory. Anticoagulation contraindicated as above Dispo: Pending stabilization of H/H. Time Spent With Patient Critical Care time: I spent a total of [] minutes of critical care time on this patient's care today; this time is exclusive of procedural time.
[2021-09-18 23:14] LABS: Hemoglobin 8.3 g/dL (13.5-17.5)
[2021-09-18 23:15] LABS: Hematocrit 24.1 % (41-53)
[2021-09-19] VITALS (15 sets, daily range): BP systolic 114–155; BP diastolic 72–80; PULSE 63–83; RESP 15–19; TEMP 36.1–37; O2SAT 94–100
[2021-09-19 06:00] LABS: Add Manual Diff / Slide Review NO; Basophils Absolute Auto 100 /uL (0-100); Basophils Percent Auto 2.4 % (0-2); Eosinophils Absolute Auto 100 /uL (0-450); Eosinophils Percent Auto 2.3 % (2-4); Hematocrit 23.3 % (41-53); Hemoglobin 7.9 g/dL (13.5-17.5); Lymphocytes Absolute Auto 700 /uL (1100-4500); Lymphocytes Percent Auto 27.4 % (25-40); Mean Corpuscular HGB Conc 33.9 % (30-36); Mean Corpuscular Volume 91.3 fL (80-100); Monocytes Absolute Auto 400 /uL (0-900); Neutrophils Absolute Auto 1400 /uL (1500-7000); Neutrophils Percent Auto 53.9 % (50-75); Platelet Count 51 X10^3/uL (150-400); Red Blood Cell Count 2.55 X10^6/uL (4.5-5.9); Red Cell Distribution Width 18.2 % (11.6-14.8); White Blood Cell Count 2.5 X10^3/uL (4.5-11.0)
--- NOTE | 2021-09-19 07:57 | PC.NURSE ---
Assumed care of pt at 0700. Pt resting in bed during hand-off. goat driver RN notified Dr. Turner on new H/H levels. Per Dr. Turner hold breakfast tray. NPO signage placed on door. Pt advised of new diet orders. Pt up to bathroom, 300 ml loose dark red bloody stool. Pt denies dizziness or SOB during ambulation. This RN advised pt to call for SBA for all oob activity as he is actively losing blood. Pt verbalizing understanding. Supportive Karime at bedside. Pt verbalized he will call for needs.
--- NOTE | 2021-09-19 09:32 | CM.DPC ---
DCP Cont: Dr. Turner came by the care management's office to give updated on patient. He will be having platelets today, and scop tomorrow. He is not yet medically ready for discharge. P: DCP to continue to follow for any needs. Patient should be able to go home when he is deemed medically stable. Naty Chaudhry RN/Mutuel Cashier
[2021-09-19] MEDS: PANTOPRAZOLE 40 MG VIAL IV ×2 (09:45→21:38)
[2021-09-19] MEDS: ATORVASTATIN 20 MG TABLET 40 MG PO (09:45)
[2021-09-19] MEDS: allopurinoL 100 MG TABLET 200 MG PO (09:45)
[2021-09-19] MEDS: CHOLECALCIFEROL (VITAMIN D3) 1,000 UNIT TABLET 1000 UNIT PO (09:45)
--- NOTE | 2021-09-19 11:12 | P.CONS_ITS ---
History of Present Illness Consult details Date Patient Seen: 09/19/21 Time Patient Seen: 11:19 Chief complaint: bleeding from rectum/x3 days Narrative: Jb is an 80-year-old man history of myelodysplastic syndrome who is admitted to the hospital with a GI bleed hemodynamically stable. One week ago he had a mitral valve clip placement and was placed on aspirin and Plavix. Four days after the procedure he developed a blood for per rectum. He has no abdominal pain. Describes the stool as ranging from bright red to maroon. At admission hematocrit 20 from baseline of 27, platelets 51. He has received a total of 4 units of packed red blood cells with appropriate but not sustained response to transfusion. Current hematocrit 23, plts 51 pulse 80, blood pressure 140/80. Previous colonoscopy 10-15 years ago reportedly normal. No personal or family history of intestinal malignancy. Relevant perioperative history 1. CKD 4 2. Aortic stenosis moderate 3. CHF secondary to severe mitral regurgitation 4. 3+ admissions over the past 1 month secondary to heart failure 5. Chronic anemia Meds Home Medications and Allergies Home Medications Medication Instructions Recorded Confirmed Type ASPIRIN (#ASPIRIN) 81 mg PO Q DAY #0 12/13/11 09/17/21 History cholecalciferol (vitamin D3) 25 1,000 unit PO DAILY 12/02/19 09/17/21 History mcg (1,000 unit) capsule Disabled Parking #1 ea 08/30/21 09/17/21 Rx allopurinol 100 mg tablet 200 mg PO DAILY #90 tab 09/01/21 09/17/21 Rx atorvastatin 40 mg tablet 40 mg PO DAILY tab 09/16/21 09/17/21 History clopidogrel 75 mg tablet 75 mg PO DAILY 09/16/21 09/17/21 History Allergies Allergy/AdvReac Type Severity Reaction Status Date / Time benazepril [BENAZEPRIL] Allergy Severe Unknown Verified 09/16/21 16:06 clonidine [CLONIDINE] Allergy Intermediate Verified 09/16/21 16:06 hydrocodone [HYDROCODONE] Allergy Mild Verified 09/16/21 16:06 Exam Vital Signs (past 8 hours): - 09/19/21 05:27 09/19/21 07:20 09/19/21 07:45 Temperature 98.6 F 98.3 F Pulse Rate 79 82 Respiratory Rate 19 17 Blood Pressure 140/79 138/80 Pulse Oximetry 98 100 98 09/19/21 09:15 Temperature Pulse Rate 82 Respiratory Rate 16 Blood Pressure Pulse Oximetry 98 Oxygen Delivery Method Room Air Oxygen Flow Rate 0 Narrative Exam Narrative: GENERAL: Elderly male in no apparent distress HEENT: No scleral icterus CV: Regular rate, moderate peripheral edema LUNGS: No increased work of breathing. Patient speaks in full sentences without oxygen support. ABDOMEN: Soft, non-tender, non-distended NEURO: Nonfocal, normal strength throughout SKIN: Warm and dry Objective Labs Result Diagrams: 09/19/21 05:15 09/18/21 04:50 Labs: Laboratory Results - last 24 hr 09/17/21 09/18/21 09/18/21 06:55 11:41 23:05 WBC 2.8 L RBC 2.21 L Hgb 6.8 L* 8.3 L Hct 20.4 L* 24.1 L MCV 92.5 MCH 30.6 MCHC 33.1 RDW 19.0 H Plt Count 59 L Neut % (Auto) 61.7 Lymph % (Auto) 21.6 L [place] % (Auto) 11.2 Eos % (Auto) 3.1 Baso % (Auto) 2.4 H Neut # (Auto) 1700 Lymph # (Auto) 600 L [place] # (Auto) 300 Eos # (Auto) 100 Baso # (Auto) 100 Blood Type O Positive Antibody Screen Negative Crossmatch See Detail 09/19/21 05:15 WBC 2.5 L RBC 2.55 L Hgb 7.9 L Hct 23.3 L MCV 91.3 MCH 31.0 MCHC 33.9 RDW 18.2 H Plt Count 51 L Neut % (Auto) 53.9 Lymph % (Auto) 27.4 [place] % (Auto) 14.0 Eos % (Auto) 2.3 Baso % (Auto) 2.4 H Neut # (Auto) 1400 L Lymph # (Auto) 700 L [place] # (Auto) 400 Eos # (Auto) 100 Baso # (Auto) 100 Blood Type Antibody Screen Crossmatch [facility] Medical History Abdominal aortic aneurysm (AAA) 3.0 cm to 5.5 cm in diameter in male (05/17/11) Aortic stenosis Chronic renal failure, stage 4 (severe) Coronary artery disease Diverticular disease Diverticulosis of colon (05/17/11) Elevated PSA Essential hypertension Foot pain (2002) Gout (1987) Hematuria (~2018) Iron deficiency Mixed hyperlipidemia Plantar warts Severe mitral regurgitation Shoulder pain Thrombocytopenia Tinnitus Surgical History Anesthesia History of penile implant (~2000) History of penile implant (~1984) Status post abdominal aortic aneurysm (AAA) repair Status post hernia repair (1969) Status post implantation of mitral valve leaflet clip (~08/2021) Status post tonsillectomy and adenoidectomy Family History Child Age: 57 MS (multiple sclerosis) Child Age: 55 High cholesterol Father Hypertension High cholesterol Bladder cancer Skin cancer Pneumonia Mother Heart disease Hypertension High cholesterol Cancer Sister Age: 83 Cancer High cholesterol Osteoporosis Breast cancer Social History marital status: household members: spouse lives independently: Yes caregiver/support person: No housing: house pets and animals: No education level: college occupational status: other current occupational exposures/hazards: No Tobacco & Substance Use Smoking Status: Former smoker Smokeless tobacco user: other quit status: quit date established alcohol intake: current substance use type: does not use Assessment & Plan Assessment & Plan narrative: 80-year-old male admitted to the hospital for GI bleed on Plavix and aspirin hemodynamically stable. History of myelodysplastic syndrome and mitral valve clipping 1 week ago was then started on Plavix. Continues to have have blood per rectum unclear if source is upper or lower.. Current hematocrit 23, platelets 51 09/19/2021. He has significant cardiopulmonary disease (CHF secondary to severe mitral regurgitation, moderate aortic stensosis, CKD 4 and multiple hospitalizations over the past 1 month secondary to CHF). Plan Platelet transfusion If continues to bleed follow platelet transfusion then possible esophagoduoden oscopy tomorrow with anesthesia provider Will avoid colonoscopy if possible as it will require longer perioid of anesthesia and volume related issues secondary to preparation and comorbidities -NPO after midnight Time Spent With Patient Critical Care time: I spent a total of [] minutes of critical care time on this patient's care today; this time is exclusive of procedural time.
[2021-09-19] MEDS: PEG3350/SOD SULF,BICARB,CL/KCL 4,000 ML SOLUTION 4000 ML PO (11:22)
[2021-09-19] MEDS: BISACODYL 5 MG TABLET PO (11:22)
--- NOTE | 2021-09-19 13:16 | P.PN_ITS ---
Subjective Subjective Date Patient Seen: 09/19/21 Time Patient Seen: 10:10 Interval history: The pt reports that he overall feels well this morning. He has some mild LLQ abdominal discomfort, but nothing severe. He continues to have significant bleeding with all BMs, which are more frequent than usual. He denies any chest pain, SOB, dizziness/lightheadedness. Exam Vital Signs (past 8 hours): - 09/19/21 05:27 09/19/21 07:20 09/19/21 07:45 Temperature 98.6 F 98.3 F Pulse Rate 79 82 Respiratory Rate 19 17 Blood Pressure 140/79 138/80 Pulse Oximetry 98 100 98 09/19/21 09:15 09/19/21 12:25 Temperature 96.9 F L Pulse Rate 82 63 Respiratory Rate 16 15 Blood Pressure 114/73 Pulse Oximetry 98 100 Oxygen Delivery Method Room Air Oxygen Flow Rate 0 Narrative Exam Narrative: Gen:? NAD, sitting comfortably in bed, appears well CV:? RRR, no murmurs Resp:? clear to auscultation bilaterally Abd:? soft, normoactive bowel sounds, mild LLQ abdominal tenderness without rebound/guarding/rigidity, normoactive bowel sounds Ext:? no edema Objective Labs Result Diagrams: 09/19/21 05:15 09/18/21 04:50 Labs: Laboratory Results - last 24 hr 09/17/21 09/18/21 09/19/21 06:55 23:05 05:15 WBC 2.5 L RBC 2.55 L Hgb 8.3 L 7.9 L Hct 24.1 L 23.3 L MCV 91.3 MCH 31.0 MCHC 33.9 RDW 18.2 H Plt Count 51 L Neut % (Auto) 53.9 Lymph % (Auto) 27.4 [place] % (Auto) 14.0 Eos % (Auto) 2.3 Baso % (Auto) 2.4 H Neut # (Auto) 1400 L Lymph # (Auto) 700 L [place] # (Auto) 400 Eos # (Auto) 100 Baso # (Auto) 100 Blood Type O Positive Antibody Screen Negative Crossmatch See Detail [facility] Medical History Abdominal aortic aneurysm (AAA) 3.0 cm to 5.5 cm in diameter in male (05/17/11) Aortic stenosis Chronic renal failure, stage 4 (severe) Coronary artery disease Diverticular disease Diverticulosis of colon (05/17/11) Elevated PSA Essential hypertension Foot pain (2002) Gout (1987) Hematuria (~2018) Iron deficiency Mixed hyperlipidemia Plantar warts Severe mitral regurgitation Shoulder pain Thrombocytopenia Tinnitus Surgical History Anesthesia History of penile implant (~2000) History of penile implant (~1984) Status post abdominal aortic aneurysm (AAA) repair Status post hernia repair (1969) Status post implantation of mitral valve leaflet clip (~08/2021) Status post tonsillectomy and adenoidectomy Family History Child Age: 57 MS (multiple sclerosis) Child Age: 55 High cholesterol Father Hypertension High cholesterol Bladder cancer Skin cancer Pneumonia Mother Heart disease Hypertension High cholesterol Cancer Sister Age: 83 Cancer High cholesterol Osteoporosis Breast cancer Social History marital status: household members: spouse lives independently: Yes caregiver/support person: No housing: house pets and animals: No education level: college occupational status: other current occupational exposures/hazards: No Smoking Status: Former smoker Smokeless tobacco user: other quit status: quit date established alcohol intake: current substance use type: does not use Assessment & Plan Assessment & Plan narrative: Pt is a 80yo man with myelodysplastic syndrome, CKD, s/p recent clip placement on mitral valve for mitral regurgitation, and HTN who presented with hematochezia. 1.? Acute blood loss anemia:? Pt does now report some stools more maroon in color. Unclear if upper or lower source. Symptoms would suggest probably lower GI given lack of upper symptoms and the fact that we actually seeing maroon stool.? Originally thought to be due to Plavix and Aspirin, however with persistent symptoms of medications. Good response to 2 units PRBCs transfusion yesterday, however with slight drop again this morning. Platelets remain low at 51 this morning. Will transfuse at this point to ensure no contributing to blood loss. - Goal H/H 8/25 or higher due to cardiac issues. Pt just barely below. Will hold additional PRBCs due to risk of volume overload. - 2 units platelet tranfusion today - Continue to trend with CBC in the AM 2. GI bleed:? Hemodynamically stable.? H/H down again slightly this morning and pt with continued symptoms, suggestive of ongoing bleed. Surgery consulted. - Plavix and aspirin held at admission - Appreciate recommendations and care from surgery - Due to significant cardiac history, will hold on colonoscopy for now - Clear diet for now, NPO overnight - If with repeat drop in H/H tomorrow, plan for EGD with anesthesiology - Continue to trend H/H and monitor symptoms 3. Cardiac:? S/P recent procedure to place clip on mitral valve.? This seem to significantly improve his mitral regurgitation and his heart failure.? Pt joe ears to remain euvolemic.? BP remains in appropriate range.? - Hold all anticoagulants as above for now - Continue to hold antihypertensives that were d/c'ed during hospitalization in [place] 4. Myelodysplastic syndrome:? Has been dependent on tranfusions, etc.? - Platelet transfusion as above 5. CKD:? Stable, actually improved.? - Continue to monitor Code:? Full Diet:? Clears DVT PPx:? SCDs, pt also ambulatory.? Anticoagulation contraindicated as above Dispo:? Pending stabilization of H/H.? Time Spent With Patient Critical Care time: I spent a total of [] minutes of critical care time on this patient's care today; this time is exclusive of procedural time.
[2021-09-19] MEDS: SODIUM CHLORIDE 0.9% FLUSH 10 ML IV (21:38)
[2021-09-20] VITALS (25 sets, daily range): BP systolic 122–162; BP diastolic 66–82; PULSE 71–86; RESP 14–19; TEMP 36.3–37.3; O2SAT 93–100; BMI 25.1
--- NOTE | 2021-09-20 | PATH_ITS ---
[facility] Accession Number: [id number] . 01 Material submitted: . duodenum - DUODENUM . 02 Diagnosis: Duodenum, Biopsy: Small bowel mucosa with gastric surface foveolar metaplasia, consistent with peptic duodenitis. Negative for intraepithelial lymphocytosis or villous blunting. Negative for dysplasia and malignancy. MRV 09/22/2021 0920 Local . 02 Electronically signed: . Suly Garcia MD, Pathologist NPI- [id number] . 01 Gross description: . DUODENUM: Received in formalin is 1 fragment(s) of shaffer, soft tissue measuring 0.2 x 0.2 x 0.1 cm submitted entirely in 1 cassette(s) /CPE 09/21/2021 1143 Local . 02 Pathologist provided ICD-10: K62.5 . 02 CPT . 547298 Performed at: 01 [facility] [address], [place], [place] [id number] MD Bladimir Perdomo MD Phone: [phone] Performed at: [address] [facility] [address] [place], [place] [id number] MD Suly Garcia MD Phone: [phone]
[2021-09-20 06:44] LABS: Add Manual Diff / Slide Review NO; Basophils Absolute Auto 0 /uL (0-100); Basophils Percent Auto 1.7 % (0-2); Eosinophils Absolute Auto 0 /uL (0-450); Eosinophils Percent Auto 2.3 % (2-4); Hematocrit 21.1 % (41-53); Hemoglobin 7.1 g/dL (13.5-17.5); Lymphocytes Absolute Auto 600 /uL (1100-4500); Lymphocytes Percent Auto 30.5 % (25-40); Mean Corpuscular HGB Conc 33.5 % (30-36); Mean Corpuscular Volume 92.7 fL (80-100); Monocytes Absolute Auto 300 /uL (0-900); Monocytes Percent Auto 13.2 % (3-14); Neutrophils Absolute Auto 1100 /uL (1500-7000); Neutrophils Percent Auto 52.3 % (50-75); Platelet Count 82 X10^3/uL (150-400); Red Blood Cell Count 2.28 X10^6/uL (4.5-5.9); Red Cell Distribution Width 17.9 % (11.6-14.8); White Blood Cell Count 2.1 X10^3/uL (4.5-11.0)
--- NOTE | 2021-09-20 07:50 | PM.PN.1 ---
Subjective Subjective Date Patient Seen: 09/20/21 Time Patient Seen: 07:50 Interval history: Patient still having dark-colored stool bloody/maroon, as recently as this morning. Stool seems to have stopped and he is having more bloody material only. Is now complaining of some left-sided almost left upper quadrant pain perhaps just a bit lower than typical left upper quadrant pain and discomfort. Discomfort is a better description pain seems a bit strong he says Blood counts continue to slowly drift down Patient remains hemodynamically stable Exam Vital Signs (past 8 hours): - 09/20/21 00:00 09/20/21 02:26 09/20/21 04:45 Temperature 97.9 F 98.8 F Pulse Rate 76 71 Respiratory Rate 18 14 Blood Pressure 141/76 H 147/73 H Pulse Oximetry 98 96 97 Oxygen Delivery Method Room Air Oxygen Flow Rate 0 Objective Labs Result Diagrams: 09/20/21 05:55 09/18/21 04:50 Labs: Laboratory Results - last 24 hr 09/17/21 09/20/21 06:55 05:55 WBC 2.1 L RBC 2.28 L Hgb 7.1 L Hct 21.1 L MCV 92.7 MCH 31.0 MCHC 33.5 RDW 17.9 H Plt Count 82 L Neut % (Auto) 52.3 Lymph % (Auto) 30.5 [place] % (Auto) 13.2 Eos % (Auto) 2.3 Baso % (Auto) 1.7 Neut # (Auto) 1100 L Lymph # (Auto) 600 L [place] # (Auto) 300 Eos # (Auto) 0 Baso # (Auto) 0 Blood Type O Positive Antibody Screen Negative Crossmatch See Detail [facility] Medical History Abdominal aortic aneurysm (AAA) 3.0 cm to 5.5 cm in diameter in male (05/17/11) Aortic stenosis Chronic renal failure, stage 4 (severe) Coronary artery disease Diverticular disease Diverticulosis of colon (05/17/11) Elevated PSA Essential hypertension Foot pain (2002) Gout (1987) Hematuria (~2018) Iron deficiency Mixed hyperlipidemia Plantar warts Severe mitral regurgitation Shoulder pain Thrombocytopenia Tinnitus Surgical History Anesthesia History of penile implant (~2000) History of penile implant (~1984) Status post abdominal aortic aneurysm (AAA) repair Status post hernia repair (1969) Status post implantation of mitral valve leaflet clip (~08/2021) Status post tonsillectomy and adenoidectomy Family History Child Age: 57 MS (multiple sclerosis) Child Age: 55 High cholesterol Father Hypertension High cholesterol Bladder cancer Skin cancer Pneumonia Mother Heart disease Hypertension High cholesterol Cancer Sister Age: 83 Cancer High cholesterol Osteoporosis Breast cancer Social History marital status: household members: spouse lives independently: Yes caregiver/support person: No housing: house pets and animals: No education level: college occupational status: other current occupational exposures/hazards: No Smoking Status: Former smoker Smokeless tobacco user: other quit status: quit date established alcohol intake: current substance use type: does not use Assessment & Plan Assessment & Plan narrative: 1. Acute GI bleed with acute blood loss anemia-patient's counts are low enough again today that I think I would give him another 2 units of packed red cells. Per surgery consultation schedule for upper endoscopy today and if that is normal I would advocate for colonoscopy as well. Patient seemingly has a lower GI source of blood loss based on his clinical picture (although this relatively new left-sided pain maybe a gastric source of symptoms etcetera). He has been hemodynamically stable as far as volume status fluid status etcetera with the transfusions he has received. I think the repair of his mitral valve is made a huge difference and I do not have a lot of concern regarding fluid shifts with prep for colonoscopy etcetera. His renal function is as good as it has been quite sometime and overall I think he is probably a reasonable candidate for prep and colonoscopy. 2. Cardiac-patient seems quite stable. No evidence of active disease at this time. Seems to be euvolemic and is remained so in the face of multiple units of packed red cells and platelets being transfused. Because of his uncertain possible coronary artery disease status I think a hemoglobin again of 8/hematocrit of 24+ would be a good target. 3. Hematologic-patient continues to show evidence of acute blood loss anemia. Part of his declined his blood count might be due to some intravascular hemolysis due to multiple transfusions patient has received in the past. However I think more likely than not given his ongoing evidence of bleeding with stool output etcetera that he has active GI bleeding. Platelet count is improved after transfusion but I do not think at any point it has been low enough to be contributing factor to his ongoing bleeding. He seems relatively stable from a hematological standpoint 4. Renal-patient's renal function is as good when last tested as has been quite sometime. Continue to monitor but I do not believe this is a complicating factor at this time. If patient requires diuresis for whatever reason would need to monitor more carefully Note: Greater than 30 minutes total time was spent on day of service, evaluating the patient on the floor, including examining the patient, discussing clinical course with clinical and nursing staff, reviewing clinical course in the computer, preparing documentation and writing orders for continued management of care, discussing status with family as appropriate, reviewing plans for the next 24 hours with both patient/family and nursing staff as appropriate.
[2021-09-20] MEDS: PANTOPRAZOLE 40 MG VIAL IV ×2 (08:01→21:01)
[2021-09-20] MEDS: SODIUM CHLORIDE 0.9% FLUSH 10 ML IV ×2 (08:06→21:01)
[2021-09-20] MEDS: LACTATED RINGERS 1,000 ML 42 ML IV (11:12)
--- NOTE | 2021-09-20 11:23 | PM.PREOP ---
Pre-operative Note COVID-19 Criteria for continued procedure: Possibility delay results in more complex future surgery or treatment Interval Note History & Physical reviewed/Exam performed by Physician: Yes Changes to H&P: No
--- NOTE | 2021-09-20 11:58 | PM.OP.EGD ---
Operative Date/Time/Diagnoses Date of procedure: 09/20/21 Time of procedure: 11:58 Pre-op diagnosis: GI bleed, anemia Post-op diagnosis: other (Gastritis, duodenitis, esophagitis) Procedure & Clinicians Study performed: Esophagoduodenoscopy Same procedure as scheduled: Yes Indications: GI bleed, anemia Surgeon: Anthony Dotson Procedure Notes Procedure in detail: Patient was brought to the operating room placed supine on the table. Sedation was administered by the anesthesia provider. He was placed into the right lateral decubitus position. Time-out performed. Bite block was placed. Scope was generally insert and into the mouth and then advanced down the esophagus into the stomach. Stomach was notable for mild gastritis there was no discrete ulceration. The pylorus was intubated the duodenum was transversed. There was inflammation within the duodenum as well again no discrete ulcer. Biopsy was performed of the duodenum. Scope was retroflexed in the stomach there was no significant hiatal hernia. Scope was then withdrawn into the esophagus the distal esophagus was notable for esophagitis there was of mild oozing of the raw mucosal surface. Stomach was desufflated and the scope was withdrawn. Specimen(s): other (Duodenum) Complications: none Impression: gastritis, duodenitis, esophagitis Post-procedure Recommendations: Continue medication(s) Plan for aftercare: Continue Protonix, hold aspirin and Plavix. No colonoscopy necessary at this time Disposition: Acute Care
[2021-09-21] VITALS (11 sets, daily range): BP systolic 136–156; BP diastolic 72–82; PULSE 68–84; RESP 16–18; TEMP 36.4–37.7; O2SAT 93–100
--- NOTE | 2021-09-21 08:02 | PM.PN.1 ---
Subjective Subjective Date Patient Seen: 09/21/21 Time Patient Seen: 08:03 Interval history: Patient basically feeling okay. Very minimal if any stool output less than announce or so he says. Still frankly dark colored bloody. Upper endoscopy yesterday demonstrated duodenitis gastritis and distal esophagitis with oozing from the distal esophagus. [place] by Dr. Dotson to be consistent with his known active GI bleed and blood loss and did not feel like it was necessary to perform colonoscopy given findings. He should continue on proton pump inhibitor obviously. No evidence of congestive heart failure no orthopnea no PND. Vital signs have been stable. Exam Vital Signs (past 8 hours): - 09/21/21 04:00 09/21/21 07:35 Temperature 98.6 F Pulse Rate 73 Respiratory Rate 18 Blood Pressure 137/72 Pulse Oximetry 97 97 Oxygen Delivery Method Room Air Oxygen Flow Rate 0 Objective Labs Result Diagrams: 09/20/21 05:55 09/18/21 04:50 Labs: Laboratory Results - last 24 hr 09/17/21 06:55 Blood Type O Positive Antibody Screen Negative Crossmatch See Detail [facility] Medical History Abdominal aortic aneurysm (AAA) 3.0 cm to 5.5 cm in diameter in male (05/17/11) Aortic stenosis Chronic renal failure, stage 4 (severe) Coronary artery disease Diverticular disease Diverticulosis of colon (05/17/11) Elevated PSA Essential hypertension Foot pain (2002) Gout (1987) Hematuria (~2018) Iron deficiency Mixed hyperlipidemia Plantar warts Severe mitral regurgitation Shoulder pain Thrombocytopenia Tinnitus Surgical History Anesthesia History of penile implant (~2000) History of penile implant (~1984) Status post abdominal aortic aneurysm (AAA) repair Status post hernia repair (1969) Status post implantation of mitral valve leaflet clip (~08/2021) Status post tonsillectomy and adenoidectomy Family History Child Age: 57 MS (multiple sclerosis) Child Age: 55 High cholesterol Father Hypertension High cholesterol Bladder cancer Skin cancer Pneumonia Mother Heart disease Hypertension High cholesterol Cancer Sister Age: 83 Cancer High cholesterol Osteoporosis Breast cancer Social History marital status: household members: spouse lives independently: Yes caregiver/support person: No housing: house pets and animals: No education level: college occupational status: other current occupational exposures/hazards: No Smoking Status: Former smoker Smokeless tobacco user: other quit status: quit date established alcohol intake: current substance use type: does not use Assessment & Plan Assessment & Plan narrative: 1. Acute GI bleed-likely secondary to upper source as above and as per his EGD. Continue on IV Protonix which he has been receiving since his admission. I am going to add sucralfate suspension in effort to more fully heal his inflammation. Stool output has diminished although he was NPO in preparation for his endoscopy. Continue monitor stool output and use that is the biggest guide. Labs are pending this morning so I do not have access to his hemoglobin or hematocrit but I think monitoring his stool output is probably going to be the critical factor to be used to decide when he is okay for discharge 2. Cardiac-patient remained stable. No evidence of congestive heart failure. He appears to be euvolemic overall. Again awaiting hemoglobin hematocrit 3. Hematologic-waiting patient's blood counts etcetera. Patient is clinically stable however. 4. Renal-again awaiting lab work. Overall patient seems to be stable but I really think we need to monitor his stool output for an indication regarding the activity of his GI bleeding. Given that he has had as many units of packed red cells as he has required here I am not confident sending him home until his stool output has decreased significantly. Fortunately he has remained hemodynamically stable through all this which I think signifies that his blood loss is been more of an ?ooze? rather than large volume bleed and that his cardiac procedure was successful. Note: Greater than 30 minutes total time was spent on day of service, evaluating the patient on the floor, including examining the patient, discussing clinical course with clinical and nursing staff, reviewing clinical course in the computer, preparing documentation and writing orders for continued management of care, discussing status with family as appropriate, reviewing plans for the next 24 hours with both patient/family and nursing staff as appropriate.
[2021-09-21] MEDS: SUCRALFATE 1 GM/10 ML ORAL SUSP PO ×4 (09:48→20:50)
[2021-09-21] MEDS: CHOLECALCIFEROL (VITAMIN D3) 1,000 UNIT TABLET 1000 UNIT PO (09:48)
[2021-09-21] MEDS: PANTOPRAZOLE 40 MG VIAL IV ×2 (09:48→20:50)
[2021-09-21] MEDS: allopurinoL 100 MG TABLET 200 MG PO (09:48)
[2021-09-21] MEDS: ATORVASTATIN 20 MG TABLET 40 MG PO (09:48)
[2021-09-21] MEDS: SODIUM CHLORIDE 0.9% FLUSH 10 ML IV ×2 (09:49→20:50)
[2021-09-21 11:41] LABS: Add Manual Diff / Slide Review NO; Basophils Absolute Auto 100 /uL (0-100); Basophils Percent Auto 1.2 % (0-2); Eosinophils Absolute Auto 0 /uL (0-450); Hematocrit 30.8 % (41-53); Hemoglobin 10.4 g/dL (13.5-17.5); Lymphocytes Absolute Auto 1200 /uL (1100-4500); Lymphocytes Percent Auto 26.2 % (25-40); Mean Corpuscular HGB Conc 33.9 % (30-36); Mean Corpuscular Hemoglobin 30.4 PG (26-34); Mean Corpuscular Volume 89.6 fL (80-100); Monocytes Absolute Auto 400 /uL (0-900); Monocytes Percent Auto 9.4 % (3-14); Neutrophils Absolute Auto 2800 /uL (1500-7000); Neutrophils Percent Auto 62.2 % (50-75); Platelet Count 85 X10^3/uL (150-400); Red Blood Cell Count 3.44 X10^6/uL (4.5-5.9); White Blood Cell Count 4.5 X10^3/uL (4.5-11.0)
[2021-09-21 11:48] LABS: BUN Creatinine Ratio 17.1 (6-22); Blood Urea Nitrogen 44 mg/dL (9-20); Calcium 8.4 mg/dL (8.4-10.2); Carbon Dioxide 24 mmol/L (22-32); Chloride 114 mmol/L (98-107); Estimated Glomerular Filt Rate 24.1 mL/min (>60); Glucose 96 mg/dL (80-110); HEMOLYSIS < 15 (0-50); Potassium 4.1 mmol/L (3.4-5.1); Sodium 142 mmol/L (137-145)
[2021-09-22 01:00] VITALS: BP 141/78; PULSE 78; RESP 18; TEMP 36.8; O2SAT 97
[2021-09-22 03:27] VITALS: BP 164/88; PULSE 87; RESP 18; TEMP 36.7; O2SAT 98
[2021-09-22 05:46] LABS: Hematocrit 27.2 % (41-53); Hemoglobin 9.2 g/dL (13.5-17.5)
[2021-09-22 07:00] VITALS: O2SAT 98
[2021-09-22] MEDS: SUCRALFATE 1 GM/10 ML ORAL SUSP PO (08:20)
[2021-09-22] MEDS: allopurinoL 100 MG TABLET 200 MG PO (08:20)
[2021-09-22] MEDS: ATORVASTATIN 20 MG TABLET 40 MG PO (08:21)
[2021-09-22] MEDS: CHOLECALCIFEROL (VITAMIN D3) 1,000 UNIT TABLET 1000 UNIT PO (08:21)
[2021-09-22] MEDS: PANTOPRAZOLE 40 MG VIAL IV (08:22)
[2021-09-22] MEDS: SODIUM CHLORIDE 0.9% FLUSH 10 ML IV (08:22)
[2021-09-22 08:27] VITALS: O2SAT 99
--- NOTE | 2021-09-22 08:42 | PM.DS.1 ---
History of Present Illness History of Present Illness Date Patient Seen: 09/22/21 Time Patient Seen: 08:43 Chief complaint: bleeding from rectum/x3 days Narrative: 80-year-old male well known to me actually seen in the clinic day before admission who presented to the [facility] Emergency Department with dark red stool from the rectum. No real abdominal symptoms. This been going on for more than 1 day. Patient with chronic myeloproliferative disorder (MDS) received 1 unit of packed red cells yesterday because of his chronic anemia in the ER found to be even more anemic. Obvious maroon-colored stool coming from the rectum per ER physician Patient recently hospitalized in [place] because of acute congestive heart failure thought to be secondary to severe mitral regurgitation. In [place] he underwent a procedure to clip the mitral valve which improved his mitral valve function and resolved his congestive heart failure. He was placed on aspirin and Plavix following this procedure which he had not been on previously. He was discharged from [facility] in [place] on September 10 of this year. It was several days following this that he began to have the bleeding as above Recently he has had no symptoms of respiratory distress which is how he presented on 2020 with his congestive heart failure thought to be secondary to the rather acute severe mitral regurgitation. Patient also with significant stage 4 chronic kidney disease which was much worse when he was being aggressively diuresed because of his volume overload/heart failure. Much improved recently in fact improved on today's labs in the emergency department Patient with longstanding myelodysplastic syndrome with pancytopenia including thrombocytopenia. Platelet count however stable at 73,000 and not likely contributing to his ongoing bleeding Other than the blood per rectum patient is really quite asymptomatic and is admitted for transfusion and monitoring Discharge Providers Provider Date of admission: 09/19/21 10:40 Discharge Date: 09/22/21 Primary care physician: Randolph Sanchez MD Consults: 09/17/21 12:21 Consult to Dietitian, Adult Routine Comment: Reason For Exam: weight loss Discharge provider: Randoplh Sanchez MD Summary Hospital Course Discharge Diagnosis: 1. Acute upper GI bleed 2. Esophagitis with evidence of bleeding 3. Gastritis with evidence of bleeding 4. Duodenitis with evidence of bleeding 5. Myelodysplastic syndrome 6. Chronic renal failure stage 4 7. Severe mitral regurgitation, status post mitral valve clip 8. Severe chronic protein calorie malnutrition with 13% weight loss over 3 months Hospital Course: Patient was admitted to the hospital with evidence of GI bleeding and more significant than usual anemia. Patient recently had a procedure on his mitral valve and was placed on dual anti-platelet therapy following that. This was discontinued and he was transfused. However his hemoglobin hematocrit continue to decline he continued to have bloody output from the rectum. He was evaluated by General surgery and underwent upper endoscopy which revealed evidence of significant duodenitis gastritis and esophagitis with evidence of bleeding specially with the esophagus. This is felt to be the most likely source of his GI bleed and colonoscopy was not felt to be indicated. He continued to have some bloody output and continued to have decline in his hemoglobin and hematocrit. He was transfused several units of packed red cells what over the 24 hours prior to discharge he had stability in his hemoglobin and hematocrit he had a very minimal if any stool output and was felt to be stable given the findings above He had been placed on proton pump inhibitor upon admission and sucralfate was added to try and treat the above noted areas of inflammation in the upper GI tract. Patient recently had admissions to the hospital with evidence of severe congestive heart failure likely secondary to his severe mitral regurgitation in combination with his underlying chronic renal failure. Patient however was hemodynamically and otherwise stable from a fluid volume standpoint during this hospitalization despite the multiple units of packed red cells he required. It is felt as though his mitral valve procedure was quite successful in correcting the issue with congestive heart failure etcetera Patient also with chronic myelodysplastic syndrome and has been somewhat transfusion dependent. He is also thrombocytopenic and is part of his hospitalization with his ongoing bleeding did receive a transfusion of platelets with an adequate response There appears to be no significant change in his underlying bone marrow disorder at this time Patient remain off the dual anti-platelet therapy for the current time as it is felt to be much more likely to cause significant issues and problems than to be beneficial given the active bleeding noted above In addition patient demonstrates evidence of severe protein calorie malnutrition with approximately 30% weight loss over the last 3 months. Some likely secondary to poor appetite as well as his active medical issues there is significant portion of that time. Hopefully medical issues have been improved he has some dietary changes and consultation here in the hospital and will continue monitor this as an outpatient Exam Vital Signs (past 8 hours): - 09/22/21 01:00 09/22/21 03:27 Temperature 98.2 F 98.0 F Pulse Rate 78 87 Respiratory Rate 18 18 Blood Pressure 141/78 H 164/88 H Pulse Oximetry 97 98 Oxygen Delivery Method Room Air Oxygen Flow Rate 0 Objective Labs Result Diagrams: 09/22/21 05:10 09/21/21 10:15 Labs: Laboratory Results - last 24 hr 09/21/21 09/21/21 09/22/21 10:15 10:15 05:10 WBC 4.5 D RBC 3.44 L Hgb 10.4 L 9.2 L Hct 30.8 L 27.2 L MCV 89.6 D MCH 30.4 MCHC 33.9 RDW 18.0 H Plt Count 85 L Neut % (Auto) 62.2 Lymph % (Auto) 26.2 [place] % (Auto) 9.4 Eos % (Auto) 1.0 L Baso % (Auto) 1.2 Neut # (Auto) 2800 Lymph # (Auto) 1200 [place] # (Auto) 400 Eos # (Auto) 0 Baso # (Auto) 100 Sodium 142 Potassium 4.1 Chloride 114 H Carbon Dioxide 24 BUN 44 H Creatinine 2.57 H Estimated GFR 24.1 L BUN/Creatinine Ratio 17.1 Glucose 96 Calcium 8.4 [facility] Medical History Abdominal aortic aneurysm (AAA) 3.0 cm to 5.5 cm in diameter in male (05/17/11) Aortic stenosis Chronic renal failure, stage 4 (severe) Coronary artery disease Diverticular disease Diverticulosis of colon (05/17/11) Elevated PSA Essential hypertension Foot pain (2002) Gout (1987) Hematuria (~2018) Iron deficiency Mixed hyperlipidemia Plantar warts Severe mitral regurgitation Shoulder pain Thrombocytopenia Tinnitus Surgical History Anesthesia History of penile implant (~2000) History of penile implant (~1984) Status post abdominal aortic aneurysm (AAA) repair Status post hernia repair (1969) Status post implantation of mitral valve leaflet clip (~08/2021) Status post tonsillectomy and adenoidectomy Family History Child Age: 57 MS (multiple sclerosis) Child Age: 55 High cholesterol Father Hypertension High cholesterol Bladder cancer Skin cancer Pneumonia Mother Heart disease Hypertension High cholesterol Cancer Sister Age: 83 Cancer High cholesterol Osteoporosis Breast cancer Social History marital status: household members: spouse lives independently: Yes caregiver/support person: No housing: house pets and animals: No education level: college occupational status: other current occupational exposures/hazards: No Smoking Status: Former smoker Smokeless tobacco user: other quit status: quit date established alcohol intake: current substance use type: does not use Discharge Assessment & Plan Assessment and Plan Plan of Treatment: Plan to continue with proton pump inhibitor for 4-6 weeks at relatively high dose as well as sucralfate for least 4 weeks Patient to continue off of aspirin and clopidogrel because of the GI bleeding Discharge Plan Discharge Plan Patient Disposition: Home Discharge orders & Medications Prescriptions: New sucralfate 100 mg/mL Suspension 1 g PO ACHS 30 Days Qty: 300 0RF pantoprazole 40 mg tablet,delayed release (DR/EC) 40 mg PO BID Qty: 60 3RF Continued allopurinol 100 mg tablet 200 mg PO DAILY Qty: 90 2RF cholecalciferol (vitamin D3) 25 mcg (1,000 unit) capsule 1,000 unit PO DAILY 0RF atorvastatin 40 mg tablet 40 mg PO DAILY 0RF Discontinued ASPIRIN (#ASPIRIN) 81 mg PO Q DAY Qty: 0 0RF clopidogrel 75 mg Tablet 75 mg PO DAILY 0RF No Action (DME) Disabled Parking See Rx Instructions .ROUTE .MEDSUPPLY Qty: 1 0RF Rx Instructions: Patient qualifies for disabled parking as per the attached form. Follow up/Referrals: Randolph Sanchez MD [Primary Care Provider] - 1 Week Discharge Health Status Multidrug resistant organism: No MDRO Diet/Activity/Treatments Diet: Diet as Tolerated Visit Report/Discharge Packet Instructions: DI for Gastritis Discharge Data Primary Care Provider: Randolph Sanchez
[2021-09-22 09:00] VITALS: BP 138/69; PULSE 75; RESP 18; TEMP 36.7; O2SAT 96
== END 2021-09-22 11:15 | disposition home or self-care (01) | DRG 368 ==
LOC: ED 08:56 → AC 09:00
PROVIDERS: Family Medicine; Surgery; Admitting Provider Internal Medicine; Emergency Provider Emergency Medicine; PCP Internal Medicine; Visit Provider Internal Medicine
PROC: 0DJ08ZZ Inspection of Upper Intestinal Tract, Via Natural or Artificial Opening Endoscopic (ICD-10-PCS; CPT 43235; principal; 2021-09-20 11:00)
DX: K20.91 Esophagitis, unspecified with bleeding (principal); K29.71 Gastritis, unspecified, with bleeding; K29.81 Duodenitis with bleeding; E43 Unspecified severe protein-calorie malnutrition; I50.31 Acute diastolic (congestive) heart failure; D62 Acute posthemorrhagic anemia; N18.4 Chronic kidney disease, stage 4 (severe); I13.0 Hypertensive heart and chronic kidney disease with heart failure and stage 1 through stage 4 chronic kidney disease, or unspecified chronic kidney disease; D46.9 Myelodysplastic syndrome, unspecified; I12.9 Hypertensive chronic kidney disease with stage 1 through stage 4 chronic kidney disease, or unspecified chronic kidney disease; E78.5 Hyperlipidemia, unspecified; M10.9 Gout, unspecified; Z68.25 Body mass index [BMI] 25.0-25.9, adult; Z87.891 Personal history of nicotine dependence; Z20.822 Contact with and (suspected) exposure to COVID-19; D63.1 Anemia in chronic kidney disease; I34.0 Nonrheumatic mitral (valve) insufficiency; N40.1 Benign prostatic hyperplasia with lower urinary tract symptoms
CPT/HCPCS: 36415; 36430; 80048; 80053; 85014; 85018; 85025; 85610; 86850; 86900; 86901; 87635; 94760; 96372; 96374; 99214; 99219; 99225; 99232; 99233; 99238; 99284; 99291; C9803; G0378; P9016; C9113; J1940; J2704; J3010; P9035; Q5106

== ENCOUNTER → 2021-09-30 10:53 | Outpatient (CLI) | payer MEDICARE, SELFPAY ==
[2021-09-17 10:40] VITALS: BMI 25.0
[2021-09-30 11:25] VITALS: BP 139/70; PULSE 65; RESP 18; TEMP 36.6; O2SAT 98
[2021-09-30] MEDS: EPOETIN ALFA-EPBX 40,000 UNIT/ML VIAL 40000 UNIT SUBCUT (11:32)
== END ==
PROVIDERS: PCP Internal Medicine; Referring Provider Internal Medicine Hematology & Oncology; Visit Provider Internal Medicine Hematology & Oncology
DX: D46.9 Myelodysplastic syndrome, unspecified (principal); I13.0 Hypertensive heart and chronic kidney disease with heart failure and stage 1 through stage 4 chronic kidney disease, or unspecified chronic kidney disease; I50.31 Acute diastolic (congestive) heart failure; N18.4 Chronic kidney disease, stage 4 (severe); D63.1 Anemia in chronic kidney disease
CPT/HCPCS: 96372; Q5106

== ENCOUNTER → 2021-10-05 13:09 | Outpatient (CLI) | payer MEDICARE, SELFPAY ==
[2021-09-17 10:40] VITALS: BMI 25.0
[2021-10-05 14:23] LABS: Add Manual Diff / Slide Review YES; Hematocrit 26.8 % (41-53); Mean Corpuscular HGB Conc 33.5 % (30-36); Mean Corpuscular Volume 92.7 fL (80-100); Platelet Count 66 X10^3/uL (150-400); Red Blood Cell Count 2.89 X10^6/uL (4.5-5.9); Red Cell Distribution Width 19.9 % (11.6-14.8); White Blood Cell Count 2.2 X10^3/uL (4.5-11.0)
[2021-10-05 14:36] LABS: Blood Urea Nitrogen 39 mg/dL (9-20); Calcium 8.7 mg/dL (8.4-10.2); Carbon Dioxide 27 mmol/L (22-32); Chloride 107 mmol/L (98-107); Estimated Glomerular Filt Rate 29.3 mL/min (>60); Glucose 82 mg/dL (80-110); HEMOLYSIS < 15 (0-50); Magnesium 2.1 mg/dL (1.6-2.3); Phosphorous 3.3 mg/dL (2.3-3.7); Potassium 5.2 mmol/L (3.4-5.1); Sodium 137 mmol/L (137-145); Uric Acid 4.1 mg/dL (3.5-8.5)
[2021-10-05 14:51] LABS: Neutrophils Absolute Manual 902 /uL (3000-5900); Total Cells Counted 100
[2021-10-05 14:55] LABS: Anisocytosis 2+; Polychromasia 1+
[2021-10-05 16:32] LABS: Vitamin D 25 Hydroxy (D3) 33.4 ng/mL (30.0-100.0)
[2021-10-06 07:10] LABS: Parathyroid Hormone Int 54 pg/mL (15-65)
== END ==
PROVIDERS: PCP Internal Medicine; Referring Provider Internal Medicine Nephrology; Visit Provider Internal Medicine Nephrology
DX: N18.4 Chronic kidney disease, stage 4 (severe) (principal)
CPT/HCPCS: 36415; 80048; 82306; 82570; 83735; 83970; 84100; 84156; 84550; 85007; 85025

== ENCOUNTER → 2021-10-14 08:26 | Outpatient (CLI) | payer MEDICARE, SELFPAY ==
[2021-09-17 10:40] VITALS: BMI 25.0
[2021-10-14] MEDS: EPOETIN ALFA-EPBX 40,000 UNIT/ML VIAL 40000 UNIT SUBCUT (09:25)
== END ==
PROVIDERS: PCP Internal Medicine; Referring Provider Internal Medicine Hematology & Oncology; Visit Provider Internal Medicine Hematology & Oncology
DX: D46.9 Myelodysplastic syndrome, unspecified (principal); I13.0 Hypertensive heart and chronic kidney disease with heart failure and stage 1 through stage 4 chronic kidney disease, or unspecified chronic kidney disease; I50.31 Acute diastolic (congestive) heart failure; N18.4 Chronic kidney disease, stage 4 (severe); D63.1 Anemia in chronic kidney disease; I34.0 Nonrheumatic mitral (valve) insufficiency
CPT/HCPCS: 96372; 99214; Q5106

== ENCOUNTER → 2021-10-28 11:19 | Outpatient (CLI) | payer MEDICARE, SELFPAY ==
[2021-09-17 10:40] VITALS: BMI 25.0
[2021-10-28 11:36] VITALS: BP 138/61; PULSE 59; RESP 16; TEMP 36.6; O2SAT 100
[2021-10-28] MEDS: EPOETIN ALFA-EPBX 40,000 UNIT/ML VIAL 40000 UNIT SUBCUT (11:44)
== END ==
PROVIDERS: PCP Internal Medicine; Referring Provider Internal Medicine; Visit Provider Internal Medicine Hematology & Oncology
DX: D46.9 Myelodysplastic syndrome, unspecified (principal); I13.0 Hypertensive heart and chronic kidney disease with heart failure and stage 1 through stage 4 chronic kidney disease, or unspecified chronic kidney disease; I50.31 Acute diastolic (congestive) heart failure; N18.4 Chronic kidney disease, stage 4 (severe); D63.1 Anemia in chronic kidney disease
CPT/HCPCS: 96372; Q5106

== ENCOUNTER → 2021-11-11 09:13 | Outpatient (CLI) | payer MEDICARE, SELFPAY ==
[2021-09-17 10:40] VITALS: BMI 25.0
== END ==
PROVIDERS: PCP Internal Medicine; Referring Provider Internal Medicine; Visit Provider Internal Medicine Hematology & Oncology
DX: I12.9 Hypertensive chronic kidney disease with stage 1 through stage 4 chronic kidney disease, or unspecified chronic kidney disease (principal); N18.4 Chronic kidney disease, stage 4 (severe); D63.1 Anemia in chronic kidney disease

== ENCOUNTER → 2021-11-25 08:22 | Outpatient (CLI) | payer MEDICARE, SELFPAY ==
[2021-09-17 10:40] VITALS: BMI 25.0
[2021-11-25] MEDS: EPOETIN ALFA-EPBX 40,000 UNIT/ML VIAL 40000 UNIT SUBCUT (09:46)
== END ==
PROVIDERS: PCP Internal Medicine; Referring Provider Internal Medicine Hematology & Oncology; Visit Provider Internal Medicine Hematology & Oncology
DX: D46.9 Myelodysplastic syndrome, unspecified (principal); I13.0 Hypertensive heart and chronic kidney disease with heart failure and stage 1 through stage 4 chronic kidney disease, or unspecified chronic kidney disease; I50.31 Acute diastolic (congestive) heart failure; N18.4 Chronic kidney disease, stage 4 (severe); D63.1 Anemia in chronic kidney disease; I34.0 Nonrheumatic mitral (valve) insufficiency; L29.9 Pruritus, unspecified; E78.5 Hyperlipidemia, unspecified
CPT/HCPCS: 96372; 99214; Q5106

== ENCOUNTER → 2021-12-09 10:08 | Outpatient (CLI) | payer MEDICARE, SELFPAY ==
[2021-09-17 10:40] VITALS: BMI 25.0
[2021-12-09 10:40] VITALS: BP 121/61; PULSE 61; RESP 16; TEMP 35.9; O2SAT 99
[2021-12-09] MEDS: EPOETIN ALFA-EPBX 40,000 UNIT/ML VIAL 40000 UNIT SUBCUT (11:36)
== END ==
PROVIDERS: PCP Internal Medicine; Referring Provider Internal Medicine Hematology & Oncology; Visit Provider Internal Medicine Hematology & Oncology
DX: I12.9 Hypertensive chronic kidney disease with stage 1 through stage 4 chronic kidney disease, or unspecified chronic kidney disease (principal); N18.4 Chronic kidney disease, stage 4 (severe); D63.1 Anemia in chronic kidney disease; D46.9 Myelodysplastic syndrome, unspecified
CPT/HCPCS: 96372; Q5106

== ENCOUNTER → 2021-12-21 14:43 | Outpatient (CLI) | payer MEDICARE, SELFPAY ==
[2021-09-17 10:40] VITALS: BMI 25.0
[2021-12-21 15:40] LABS: BUN Creatinine Ratio 24.4 (6-22); Blood Urea Nitrogen 76 mg/dL (9-20); Calcium 8.3 mg/dL (8.4-10.2); Carbon Dioxide 28 mmol/L (22-32); Chloride 105 mmol/L (98-107); Estimated Glomerular Filt Rate 19 mL/min (>60); Glucose 63 mg/dL (80-110); HEMOLYSIS < 15 (0-50); Magnesium 2.5 mg/dL (1.6-2.3); Phosphorous 5.1 mg/dL (2.3-3.7); Potassium 4.7 mmol/L (3.4-5.1); Sodium 138 mmol/L (137-145); Uric Acid 7.6 mg/dL (3.5-8.5)
[2021-12-21 16:47] LABS: Vitamin D 25 Hydroxy (D3) 72.7 ng/mL (30.0-100.0)
[2021-12-21 16:58] LABS: Appearance Urine UA CLEAR; Bilirubin Urine UA NEGATIVE (NEGATIVE); Color Urine UA YELLOW; Glucose Urine UA NEGATIVE (Negative); Ketones Urine UA NEGATIVE (NEGATIVE); Leukocyte Esterase Urine UA NEGATIVE (NEGATIVE); Nitrite Urine UA NEGATIVE (Negative); Occult Blood Urine UA NEGATIVE (Negative); Protein Urine UA 1+ (Negative); Urobilinogen Urine UA 0.2 E.U./dL (0.2)
[2021-12-21 17:07] LABS: Creatinine Urine Random 58.3 mg/dL
[2021-12-21 17:09] LABS: Bacteria Urine None Seen; Culture Indicated Urine Cult Not Indicated; Hyaline Casts Urine 5-10/LPF; RBC Urine 0-1/HPF (0-5/HPF); Squamous Epithelial Cell Urine 1-5 /HPF (0-5/HPF); WBC Urine 0-1/HPF (0-5/HPF)
[2021-12-21 17:10] LABS: Microalbumi Creatinin Ratio Ur 325.9 ug/mg CR (<30)
[2021-12-23 05:33] LABS: Parathyroid Hormone Int 70 pg/mL (15-65)
== END ==
PROVIDERS: PCP Internal Medicine; Referring Provider Physician Assistant; Visit Provider Physician Assistant
DX: N18.32 Chronic kidney disease, stage 3b (principal)
CPT/HCPCS: 36415; 80048; 81001; 82043; 82306; 82570; 83735; 83970; 84100; 84550

== ENCOUNTER → 2021-12-23 12:45 | Outpatient (CLI) | payer MEDICARE, SELFPAY ==
[2021-09-17 10:40] VITALS: BMI 25.0
[2021-12-23 13:07] VITALS: BP 159/66; PULSE 55; RESP 16; TEMP 36.2; O2SAT 100
[2021-12-23 13:23] VITALS: BP 150/70
[2021-12-23] MEDS: EPOETIN ALFA-EPBX 40,000 UNIT/ML VIAL 40000 UNIT SUBCUT (13:28)
--- NOTE | 2021-12-23 17:04 | ONC.PHA ---
EPO Injection: S/O: 81 y.o. male, with diagnosis of MDS & CKD, is here for EPO 40,000 units SubQ injection every 2 weeks. Per MD note, EPO 40,000 every 2 weeks and hold if Hbg > 10. Transfusion threshold is when H/H < 8/24. Reviewed patient chart, EPO was held on 11/11/2021 due to patients developed intense macular papular rashes. Today BP = 122/56 A/P: Reviewed 12/22/2021 labs: Hgb/Hct = 8.6/25.5 Most recent Iron panel on 12/08/2021 indicates TSAT = 19%, Iron = 44, TIBC = 226, Ferritin = 300. Per most recent MD note on 12/10/21, continue EPO 40,000 unit injections every 2 weeks and Venofer 200mg weekly x 5 doses. Allergies Allergy/AdvReac Type Severity Reaction Status Date / Time benazepril [BENAZEPRIL] Allergy Severe Unknown Verified 11/30/21 09:17 clonidine [CLONIDINE] Allergy Intermediate Verified 11/30/21 09:17 hydrocodone [HYDROCODONE] Allergy Mild Verified 11/30/21 09:17 Vital Signs Temperature 97.2 F 12/23/21 13:07 Pulse Rate 55 12/23/21 13:07 Respiratory Rate 16 12/23/21 13:07 Blood Pressure 150/70 12/23/21 13:23 Blood Pressure 159/66 12/23/21 13:07 Pulse Oximetry 100 12/23/21 13:07
== END ==
PROVIDERS: PCP Internal Medicine; Referring Provider Internal Medicine Hematology & Oncology; Visit Provider Internal Medicine Hematology & Oncology
DX: D46.9 Myelodysplastic syndrome, unspecified (principal); I13.0 Hypertensive heart and chronic kidney disease with heart failure and stage 1 through stage 4 chronic kidney disease, or unspecified chronic kidney disease; I50.31 Acute diastolic (congestive) heart failure; N18.4 Chronic kidney disease, stage 4 (severe); D63.1 Anemia in chronic kidney disease
CPT/HCPCS: 96372; Q5106

== ENCOUNTER → 2022-01-04 16:21 | Outpatient (CLI) | payer MEDICARE, SELFPAY ==
[2021-09-17 10:40] VITALS: BMI 25.0
--- NOTE | 2022-01-04 | DI.US.S_ITS ---
PROCEDURE: US PERIPH VENOUS UP EXTREM RT INDICATIONS: right upper arm pain, swelling and bruising TECHNIQUE: Real-time imaging, as well as color and pulse Doppler interrogation, was performed of the right upper extremity deep veins from the inferior neck to the antecubital fossa. COMPARISON: None. FINDINGS: The internal jugular vein, visualized portions of the subclavian vein, axillary, and brachial veins are free of intraluminal thrombus. Where physically possible, the veins are normally compressible. Color and pulse Doppler demonstrate normal intraluminal flow, with expected phasicity and pulsatility. Additional scanning of the cephalic and basilic veins of the superficial system demonstrate normal compressibility, without thrombus. Soft tissue edema can be seen within the area of bruising at the level of the elbow. IMPRESSION: Negative for deep venous thrombosis. Dictated by: Darrell Mixon M.D. on 01/04/2022 at 16:32 Approved by: Darrell Mixon M.D. on 01/04/2022 at 16:32
== END ==
PROVIDERS: PCP Internal Medicine; Referring Provider Nurse Practitioner; Visit Provider Nurse Practitioner
DX: S40.021A Contusion of right upper arm, initial encounter (principal); M79.621 Pain in right upper arm; M79.89 Other specified soft tissue disorders
CPT/HCPCS: 93971

== ENCOUNTER → 2022-01-05 11:27 | Outpatient (CLI) | payer MEDICARE, SELFPAY ==
[2021-09-17 10:40] VITALS: BMI 25.0
[2022-01-05 13:11] LABS: BUN Creatinine Ratio 26.2 (6-22); Blood Urea Nitrogen 75 mg/dL (9-20); Calcium 8.1 mg/dL (8.4-10.2); Carbon Dioxide 30 mmol/L (22-32); Chloride 104 mmol/L (98-107); Estimated Glomerular Filt Rate 21 mL/min (>60); Glucose 62 mg/dL (80-110); HEMOLYSIS < 15 (0-50); Potassium 4.2 mmol/L (3.4-5.1); Sodium 137 mmol/L (137-145)
== END ==
PROVIDERS: PCP Internal Medicine; Referring Provider Nurse Practitioner; Visit Provider Nurse Practitioner
DX: I50.21 Acute systolic (congestive) heart failure (principal)
CPT/HCPCS: 36415; 80048

== ENCOUNTER → 2022-01-06 08:37 | Outpatient (CLI) | payer MEDICARE, SELFPAY ==
[2021-09-17 10:40] VITALS: BMI 25.0
[2022-01-06] MEDS: EPOETIN ALFA-EPBX 40,000 UNIT/ML VIAL 40000 UNIT SUBCUT (09:53)
== END ==
PROVIDERS: PCP Internal Medicine; Referring Provider Internal Medicine; Visit Provider Internal Medicine Hematology & Oncology
DX: D46.9 Myelodysplastic syndrome, unspecified (principal); I13.0 Hypertensive heart and chronic kidney disease with heart failure and stage 1 through stage 4 chronic kidney disease, or unspecified chronic kidney disease; I50.31 Acute diastolic (congestive) heart failure; N18.4 Chronic kidney disease, stage 4 (severe); D63.1 Anemia in chronic kidney disease
CPT/HCPCS: 96372; 99214; Q5106

== ENCOUNTER → 2022-01-20 12:30 | Outpatient (CLI) | payer MEDICARE, SELFPAY ==
[2021-09-17 10:40] VITALS: BMI 25.0
[2022-01-20 12:48] VITALS: BP 148/64; PULSE 61; RESP 16; TEMP 36.6; O2SAT 99
[2022-01-20] MEDS: EPOETIN ALFA-EPBX 40,000 UNIT/ML VIAL 40000 UNIT SUBCUT (13:15)
== END ==
PROVIDERS: PCP Internal Medicine; Referring Provider Internal Medicine; Visit Provider Internal Medicine Hematology & Oncology
DX: D46.9 Myelodysplastic syndrome, unspecified (principal); I13.0 Hypertensive heart and chronic kidney disease with heart failure and stage 1 through stage 4 chronic kidney disease, or unspecified chronic kidney disease; I50.31 Acute diastolic (congestive) heart failure; N18.4 Chronic kidney disease, stage 4 (severe); D63.1 Anemia in chronic kidney disease
CPT/HCPCS: 96372; Q5106

== ENCOUNTER 2022-02-01 10:34 | Emergency (ER) | payer MEDICARE, SELFPAY ==
[2021-09-17 10:40] VITALS: BMI 25.0
[2022-02-01 10:45] VITALS: BP 128/71; PULSE 81; RESP 16; TEMP 38.2; O2SAT 96; BMI 24.9
--- NOTE | 2022-02-01 11:16 | ED.FEVER ---
HPI - Fever General Chief Complaint: Fever Stated Complaint: fever 105 yesteday, 102 today sore throat covid+ Time Seen by Provider: 02/01/22 10:36 Mode of arrival: Family Vehicle History of Present Illness HPI Narrative: 81-year-old male former smoker with history of coronary artery disease, myelodysplastic syndrome, CHF and chronic kidney disease presents with his with a chief complaint of fever and some dry cough. He denies any headache or blurred vision. He denies nasal congestion, runny nose or sore throat. He denies any significant shortness of breath and has not noticed any decreased oxygen levels. He denies any nausea or vomiting. He has no exercise intolerance. He took a home COVID test that was found to be positive and is here for advice. Related Data Home Medications Medication Instructions Recorded Confirmed cholecalciferol (vitamin D3) 25 1,000 unit PO DAILY 12/02/19 01/06/22 mcg (1,000 unit) capsule carvedilol 12.5 mg tablet (Coreg) 12.5 mg PO BID 09/30/21 01/06/22 prazosin 2 mg capsule 2 mg PO BEDTIME 11/01/21 01/06/22 multivitamin 1 tab PO DAILY 11/25/21 01/06/22 epoetin bridgette-epbx 40,000 unit/mL 40,000 unit SUBCUT Q2W 11/30/21 01/06/22 injection solution (Retacrit) gabapentin 100 mg capsule 100 mg PO BID PRN Pain (Scale 12/28/21 01/06/22 Score 4-6) Previous Rx's Medication Instructions Recorded Disabled Parking #1 ea 08/30/21 allopurinol 100 mg tablet 100 mg PO DAILY #90 tabs 10/26/21 torsemide 20 mg tablet 20 - 40 mg PO DAILY #60 tabs 12/28/21 Allergies Allergy/AdvReac Type Severity Reaction Status Date / Time benazepril [BENAZEPRIL] Allergy Severe Unknown Verified 02/01/22 10:47 clonidine [CLONIDINE] Allergy Intermediate Verified 02/01/22 10:47 hydrocodone [HYDROCODONE] Allergy Mild Verified 02/01/22 10:47 Review of Systems Review of Systems Narrative: GENERAL: See HPI HEENT: See HPI RESPIRATORY: See HPI CARDIOVASCULAR: See HP GASTROINTESTINAL: Denies nausea, vomiting, abdominal pain, diarrhea, constipation, melena. : Denies dysuria, frequency, incontinence, hematuria, urinary retention. MUSCULOSKELETAL: denies weakness, joint pain, or bony pain SKIN: Denies rash, skin lesions, or other NEUROLOGIC: Denies weakness, headache, numbness, change in speech, confusion, seizures, incoordination. PSYCHIATRIC: No concerning psychosocial issues. 12 point review of systems is negative except for those stated above Patient History Medical History Abdominal aortic aneurysm (AAA) 3.0 cm to 5.5 cm in diameter in male (05/17/11) Aortic stenosis Cardiomyopathy Chronic renal failure, stage 4 (severe) Coronary artery disease Diverticular disease Diverticulosis of colon (05/17/11) Elevated PSA Essential hypertension Foot pain (2002) Gout (1987) Hematuria (~2018) Iron deficiency Mixed hyperlipidemia Plantar warts Severe mitral regurgitation Shoulder pain Thrombocytopenia Tinnitus Surgical History Anesthesia History of penile implant (~2000) History of penile implant (~1984) Status post abdominal aortic aneurysm (AAA) repair Status post hernia repair (1969) Status post implantation of mitral valve leaflet clip (~08/2021) Status post tonsillectomy and adenoidectomy Family History Child Age: 57 MS (multiple sclerosis) Child Age: 55 High cholesterol Father Hypertension High cholesterol Bladder cancer Skin cancer Pneumonia Mother Heart disease Hypertension High cholesterol Cancer Sister Age: 83 Cancer High cholesterol Osteoporosis Breast cancer Social History marital status: household members: spouse lives independently: Yes caregiver/support person: No housing: house pets and animals: No education level: college occupational status: other current occupational exposures/hazards: No Smoking Status: Former smoker Smokeless tobacco user: other quit status: quit date established alcohol intake: current substance use type: does not use Smoking Status: Former smoker alcohol intake frequency: holidays/special occasions only Substance Use Type: does not use Exam Narrative Exam Narrative: GENERAL: [81] year old patient appears stated age. Well-developed patient, in no obvious distress, resting comfortably, no increased work of breathing, conversational dyspnea or hypoxemia HEAD: Atraumatic. Normocephalic. EYES: Pupils equal round and reactive. Extraocular motions intact. No scleral icterus. No injection or drainage. ENT: Nose without bleeding, purulent drainage. Throat without erythema, tonsillar hypertrophy or exudate. Airway patent. NECK: Trachea midline. Non tender CARDIOVASCULAR: Regular rate and rhythm without murmurs, gallops, or rubs. RESPIRATORY: Clear to auscultation. Breath sounds equal bilaterally. No wheezes, rales, or rhonchi. GASTROINTESTINAL: Abdomen soft, non-tender, nondistended. EXTREMITIES: No edema or joint tenderness. BACK: Nontender without deformity or crepitance. No flank tenderness. NEURO: AOx3. SKIN: No rash or erythema of visible areas Initial Vital Signs Initial Vital Signs: Vital Signs Temperature 100.7 F H 02/01/22 10:45 Pulse Rate 81 02/01/22 10:45 Respiratory Rate 16 02/01/22 10:45 Blood Pressure 128/71 02/01/22 10:45 Pulse Oximetry 96 02/01/22 10:45 Oxygen Delivery Method 02/01/22 10:45 Course Vital Signs Vital signs: Vital Signs - 8 hr 02/01/22 10:45 Temperature 100.7 F H Pulse Rate 81 Respiratory Rate 16 Blood Pressure 128/71 Pulse Oximetry 96 Oxygen Delivery Method Room Air MDM - Fever MDM Narrative Medical decision making narrative: Patient has very reassuring history and physical exam and is found to be COVID positive. He has no significant work of breathing, no need for supplemental oxygen. Alternative diagnoses considered including cardiac disease, acute CHF but there is a lack of exertional dyspnea, orthopnea, lower extremity swelling, Multiple other causes of SOB also considered including GA, PE, pneumothorax, pneumonia, aortic dissection, and pleurisy. Patient reports no radiation, no diaphoresis, no provocation with exertion, and no vomiting. I had extensive discussion at the bedside with patient and his it we sure the opinion that this is most consistent with a mild, early COVID infection. We discussed the utility of a more broad workup including the risks and benefits of doing so versus not and sure the opinion at this point time it is not needed. Furthermore, due to the patient's renal disease and medications he is on he is not a good candidate for Paxlovid. Patient given extensive return precautions and questions answered to their apparent satisfaction Discharge Plan Departure Patient Disposition: Home Clinical Impression: COVID-19 Instructions: DI for COVID-19 (Suspected or Confirmed ) Activity Restrictions/Additional Instructions: *You have been diagnosed with [ COVID-19] *What to do: ?* per recommendations from the CDC and the [facility] Department of Health ?* stay home except to get medical care. ?Restrict activities outside your home, except for getting medical care. ?Do not go to work, school, or public areas. ?Avoid using public transportation, ride sharing, or taxis. ?* separate yourself from other people in your home. ?* call ahead before visiting your doctor ?* Wear a facemask ?* Cover your coughs and sneezes ?* Clean your hands often ?* Avoid sharing household items ?* Clean all high-touch services every day ?* Monitor your symptoms and seek prompt medical attention if your illness is worsening, particularly with difficulty in breathing. You may discontinue your isolation when: ?1. You have been fever-free for at least 24 hours without the use of fever reducing medication, AND ?2. Your symptoms are getting better, AND ?3. At least 5 days have passed since symptoms first appeared ?4. If you have fever, continue to stay home until fever resolves Individuals with laboratory confirmed COVID-19 who have not had any symptoms may discontinue home isolation when at least 5 days have passed since the date of their first COVID-19 diagnostic test and have had no subsequent illness You should notifiy any friends and family that have been in close contact *If up to date on COVID Vaccines, then they do not need to quarantine unless symptoms develop. Get tested on day 5 (or sooner if symptoms develop). Take precautions and watch for symptoms until day 10 *If NOT up to date on COVID Vaccines, then CDC recommends quarantine for at least 5 full days. Wear a well fitted mask at home if you must be around others. If they ?develop symptoms they should get tested. If they remain asymptomatic they should get tested on day 5. They should take precautions and monitor for symptoms until day 10. Prescriptions: No Action (DME) Disabled Parking See Rx Instructions .ROUTE .MEDSUPPLY Qty: 1 0RF Rx Instructions: Patient qualifies for disabled parking as per the attached form. allopurinol 100 mg tablet 100 mg PO DAILY Qty: 90 3RF torsemide 20 mg tablet 20 - 40 mg PO DAILY Qty: 60 3RF gabapentin 100 mg capsule 100 mg PO BID PRN (Reason: Pain (Scale Score 4-6)) Label Comments: TAKE ONE-2 CAPSULES daily prn. cholecalciferol (vitamin D3) 25 mcg (1,000 unit) capsule 1,000 unit PO DAILY prazosin 2 mg capsule 2 mg PO BEDTIME Retacrit 40,000 unit/mL solution 40,000 unit SUBCUT Q2W carvedilol [Coreg] 12.5 mg Tablet 12.5 mg PO BID Rx Instructions: must administer with a meal/food multivitamin Tablet 1 tab PO DAILY Referrals: Randolph Sanchez MD [Primary Care Provider] - Visit Report Forms: Patient Portal/API
--- NOTE | 2022-02-01 11:31 | PC.NURSE ---
Pt reports 105.7 fever early this morning and a positive COVID at home test. Pt reports taking Tylenol which he states helped. Pt reporting sore throat, congestion, mild cough, muscle aches and fatigue that began last night. Denies diarrhea, N&V. Pt has some SOB with exertion, and also reports being SOB a lot of the time normally due to anemia. 96% on RA, bilateral posterior clear lung sounds throughout, RR 18, and able to talk in full sentences.
[2022-02-01 11:34] VITALS: BP 138/64; PULSE 75; RESP 18; O2SAT 96
== END 2022-02-01 11:32 | disposition home or self-care (01) ==
PROVIDERS: Emergency Provider Emergency Medicine; PCP Internal Medicine
DX: U07.1 COVID-19 (principal)
CPT/HCPCS: 99281

== ENCOUNTER → 2022-02-09 11:17 | Outpatient (CLI) | payer MEDICARE, SELFPAY ==
[2021-09-17 10:40] VITALS: BMI 25.0
[2022-02-09 13:34] LABS: Vitamin D 25 Hydroxy (D3) 55.9 ng/mL (30.0-100.0)
[2022-02-09 13:37] LABS: BUN Creatinine Ratio 18.9 (6-22); Blood Urea Nitrogen 67 mg/dL (9-20); Calcium 8.2 mg/dL (8.4-10.2); Carbon Dioxide 28 mmol/L (22-32); Chloride 104 mmol/L (98-107); Estimated Glomerular Filt Rate 16 mL/min (>60); Glucose 95 mg/dL (80-110); HEMOLYSIS < 15 (0-50); Magnesium 2.4 mg/dL (1.6-2.3); Phosphorous 4.3 mg/dL (2.3-3.7); Potassium 4.3 mmol/L (3.4-5.1); Sodium 139 mmol/L (137-145); Uric Acid 8.4 mg/dL (3.5-8.5)
[2022-02-10 08:28] LABS: Parathyroid Hormone Int 96 pg/mL (15-65)
== END ==
PROVIDERS: PCP Internal Medicine; Referring Provider Internal Medicine Nephrology; Visit Provider Internal Medicine Nephrology
DX: N18.4 Chronic kidney disease, stage 4 (severe) (principal)
CPT/HCPCS: 36415; 80048; 82306; 83735; 83970; 84100; 84550

== ENCOUNTER → 2022-02-17 08:00 | Outpatient (CLI) | payer MEDICARE, SELFPAY ==
[2021-09-17 10:40] VITALS: BMI 25.0
[2022-02-17] MEDS: EPOETIN ALFA-EPBX 40,000 UNIT/ML VIAL 40000 UNIT SUBCUT (08:48)
== END ==
PROVIDERS: PCP Internal Medicine; Referring Provider Internal Medicine; Visit Provider Internal Medicine Hematology & Oncology
DX: D46.9 Myelodysplastic syndrome, unspecified (principal); I13.0 Hypertensive heart and chronic kidney disease with heart failure and stage 1 through stage 4 chronic kidney disease, or unspecified chronic kidney disease; I50.31 Acute diastolic (congestive) heart failure; D63.1 Anemia in chronic kidney disease; N18.32 Chronic kidney disease, stage 3b
CPT/HCPCS: 96372; 99214; Q5106

== ENCOUNTER → 2022-02-24 10:40 | Outpatient (CLI) | payer MEDICARE, SELFPAY ==
[2021-09-17 10:40] VITALS: BMI 25.0
[2022-02-24 12:16] LABS: Add Manual Diff / Slide Review NO; Basophils Absolute Auto 0 /uL (0-100); Eosinophils Absolute Auto 100 /uL (0-450); Eosinophils Percent Auto 6.3 % (2-4); Lymphocytes Absolute Auto 500 /uL (1100-4500); Lymphocytes Percent Auto 19.6 % (25-40); Mean Corpuscular HGB Conc 33.1 % (30-36); Mean Corpuscular Hemoglobin 33.9 PG (26-34); Mean Corpuscular Volume 102.3 fL (80-100); Monocytes Absolute Auto 200 /uL (0-900); Monocytes Percent Auto 9.7 % (3-14); Neutrophils Absolute Auto 1400 /uL (1500-7000); Neutrophils Percent Auto 62.4 % (50-75); Platelet Count 68 X10^3/uL (150-400); Red Blood Cell Count 2.02 X10^6/uL (4.5-5.9); Red Cell Distribution Width 15.2 % (11.6-14.8); White Blood Cell Count 2.3 X10^3/uL (4.5-11.0)
[2022-02-24 12:23] LABS: Hematocrit 20.6 % (41-53); Hemoglobin 6.8 g/dL (13.5-17.5)
[2022-02-24 12:25] LABS: BUN Creatinine Ratio 23.9 (6-22); Blood Urea Nitrogen 73 mg/dL (9-20); Calcium 8.2 mg/dL (8.4-10.2); Carbon Dioxide 28 mmol/L (22-32); Chloride 107 mmol/L (98-107); Estimated Glomerular Filt Rate 20 mL/min (>60); Glucose 152 mg/dL (80-110); HEMOLYSIS 22 (0-50); Potassium 5.1 mmol/L (3.4-5.1); Sodium 139 mmol/L (137-145)
== END ==
PROVIDERS: PCP Internal Medicine; Referring Provider Physician Assistant; Visit Provider Physician Assistant
DX: N17.9 Acute kidney failure, unspecified (principal)
CPT/HCPCS: 36415; 80048; 85025

== ENCOUNTER → 2022-03-03 10:48 | Outpatient (CLI) | payer MEDICARE, SELFPAY ==
[2021-09-17 10:40] VITALS: BMI 25.0
[2022-03-03 11:21] VITALS: BP 129/60; PULSE 65; RESP 16; TEMP 36.6; O2SAT 100
[2022-03-03] MEDS: EPOETIN ALFA-EPBX 40,000 UNIT/ML VIAL 40000 UNIT SUBCUT (11:29)
== END ==
PROVIDERS: Family Provider Internal Medicine; PCP Internal Medicine; Referring Provider Internal Medicine; Visit Provider Internal Medicine Hematology & Oncology
DX: D46.9 Myelodysplastic syndrome, unspecified (principal); I13.0 Hypertensive heart and chronic kidney disease with heart failure and stage 1 through stage 4 chronic kidney disease, or unspecified chronic kidney disease; I50.31 Acute diastolic (congestive) heart failure; N18.32 Chronic kidney disease, stage 3b; D63.1 Anemia in chronic kidney disease
CPT/HCPCS: 96372; Q5106

== ENCOUNTER → 2022-03-17 10:46 | Outpatient (CLI) | payer MEDICARE, SELFPAY ==
[2021-09-17 10:40] VITALS: BMI 25.0
[2022-03-17 11:16] VITALS: BP 152/75; PULSE 57; RESP 16; TEMP 36.7; O2SAT 99
[2022-03-17] MEDS: EPOETIN ALFA-EPBX 40,000 UNIT/ML VIAL 40000 UNIT SUBCUT (11:31)
== END ==
PROVIDERS: Family Provider Internal Medicine; PCP Internal Medicine; Referring Provider Internal Medicine; Visit Provider Internal Medicine Hematology & Oncology
DX: D46.9 Myelodysplastic syndrome, unspecified (principal); I13.0 Hypertensive heart and chronic kidney disease with heart failure and stage 1 through stage 4 chronic kidney disease, or unspecified chronic kidney disease; I50.31 Acute diastolic (congestive) heart failure; N18.32 Chronic kidney disease, stage 3b; D63.1 Anemia in chronic kidney disease
CPT/HCPCS: 36415; 80053; 82728; 83540; 83550; 85025; 96372; Q5106

== ENCOUNTER → 2022-03-22 14:54 | Outpatient (CLI) | payer MEDICARE, SELFPAY ==
[2021-09-17 10:40] VITALS: BMI 25.0
[2022-03-22 16:04] LABS: Add Manual Diff / Slide Review NO; Basophils Absolute Auto 0 /uL (0-100); Basophils Percent Auto 2.1 % (0-2); Eosinophils Absolute Auto 100 /uL (0-450); Hematocrit 23.7 % (41-53); Hemoglobin 7.7 g/dL (13.5-17.5); Lymphocytes Absolute Auto 600 /uL (1100-4500); Lymphocytes Percent Auto 30.9 % (25-40); Mean Corpuscular HGB Conc 32.6 % (30-36); Mean Corpuscular Hemoglobin 33.1 PG (26-34); Mean Corpuscular Volume 101.7 fL (80-100); Monocytes Absolute Auto 300 /uL (0-900); Monocytes Percent Auto 15.2 % (3-14); Neutrophils Absolute Auto 900 /uL (1500-7000); Neutrophils Percent Auto 47.8 % (50-75); Platelet Count 70 X10^3/uL (150-400); Red Blood Cell Count 2.33 X10^6/uL (4.5-5.9)
[2022-03-22 16:44] LABS: BUN Creatinine Ratio 23.6 (6-22); Blood Urea Nitrogen 67 mg/dL (9-20); Carbon Dioxide 29 mmol/L (22-32); Chloride 104 mmol/L (98-107); Estimated Glomerular Filt Rate 21 mL/min (>60); Glucose 79 mg/dL (80-110); HEMOLYSIS < 15 (0-50); Potassium 4.6 mmol/L (3.4-5.1); Sodium 139 mmol/L (137-145)
== END ==
PROVIDERS: Family Provider Internal Medicine; PCP Internal Medicine; Referring Provider Internal Medicine Nephrology; Visit Provider Internal Medicine Nephrology
DX: N17.9 Acute kidney failure, unspecified (principal)
CPT/HCPCS: 36415; 80048; 85025

== ENCOUNTER → 2022-03-28 11:33 | Outpatient (CLI) | payer MEDICARE, SELFPAY ==
[2021-09-17 10:40] VITALS: BMI 25.0
--- NOTE | 2022-03-28 11:35 | DI.MRI.S_ITS ---
PROCEDURE: MR SHOULDER RT WO CON INDICATIONS: Complete rotator cuff tear/rupture of rt shoulder TECHNIQUE: Noncontrast oblique coronal T2 fast spin echo with fat saturation, oblique sagittal T1 spin echo and T2 fast spin echo with fat saturation, axial T1 spin echo and T2 fast spin echo with fat saturation through the shoulder. COMPARISON: None. FINDINGS: Image quality: Excellent. Rotator cuff: Full-thickness rupture of distal supraspinatus and infraspinatus at their insertion on the humeral head is seen with up to 5.4 cm medial retraction of torn tendon fibers to the level of glenoid. Tendinosis and low-grade partial-thickness tear involving superior to mid fibers of distal subscapularis is seen. Sagittal images demonstrate mild to moderate supraspinatus and infraspinatus muscle atrophy. Bones and bursae: There is no marrow edema. No acute fracture or dislocation. Superior migration of humeral head in relation to glenoid is seen. Moderate acromioclavicular joint and glenohumeral joint osteoarthritic changes are noted. There is moderate to large amount of joint fluid and subacromial subdeltoid bursal fluid. No gross loose bodies. Capsule and soft tissues: Signal abnormality and contour irregularity involving superior anterior labrum at 12 to 2 o'clock position is seen. The long head of the biceps tendon is not visualized intra-articularly. The rotator interval appears normal, without fibrosis. The coracohumeral ligament is normal in thickness. IMPRESSION: 1. Full-thickness rupture of distal supraspinatus and infraspinatus at their insertions on humeral head with up to 5.4 cm medial retraction of torn tendon fibers to the level of glenoid. Mild to moderate supraspinatus and infraspinatus muscle atrophy. Tendinosis and low-grade partial-thickness tear involving superior to mid fibers of distal subscapularis. 2. Moderate acromioclavicular joint and glenohumeral joint osteoarthritis. Superior migration of humeral head in relation to glenoid. No fracture or dislocation. Moderate joint effusion and subacromial subdeltoid bursal fluid. No gross loose bodies. 3. Suggestion of superior anterior labral tear at 12 to 2 o'clock position. 4. Nonvisualization of proximal intra-articular portion of long head of biceps tendon concerning for ruptured proximal biceps. Dictated by: Xavier Boykin M.D. on 03/28/2022 at 12:47 Approved by: Xavier Boykin M.D. on 03/28/2022 at 12:52
== END ==
PROVIDERS: Family Provider Internal Medicine; PCP Internal Medicine; Referring Provider Orthopaedic Surgery; Visit Provider Orthopaedic Surgery
DX: M75.121 Complete rotator cuff tear or rupture of right shoulder, not specified as traumatic (principal); M19.011 Primary osteoarthritis, right shoulder; M25.411 Effusion, right shoulder
CPT/HCPCS: 73221

== ENCOUNTER → 2022-03-31 10:10 | Outpatient (CLI) | payer MEDICARE, SELFPAY ==
[2021-09-17 10:40] VITALS: BMI 25.0
[2022-03-31 10:27] VITALS: BP 143/61; PULSE 53; RESP 16; TEMP 36.8; O2SAT 100
[2022-03-31] MEDS: EPOETIN ALFA-EPBX 40,000 UNIT/ML VIAL 40000 UNIT SUBCUT (10:36)
== END ==
PROVIDERS: Family Provider Internal Medicine; PCP Internal Medicine; Referring Provider Internal Medicine; Visit Provider Internal Medicine Hematology & Oncology
DX: D46.9 Myelodysplastic syndrome, unspecified (principal); I13.0 Hypertensive heart and chronic kidney disease with heart failure and stage 1 through stage 4 chronic kidney disease, or unspecified chronic kidney disease; I50.31 Acute diastolic (congestive) heart failure; N18.32 Chronic kidney disease, stage 3b; D63.1 Anemia in chronic kidney disease
CPT/HCPCS: 96372; Q5106

== ENCOUNTER → 2022-04-14 10:17 | Outpatient (CLI) | payer MEDICARE, SELFPAY ==
[2021-09-17 10:40] VITALS: BMI 25.0
[2022-04-14 10:43] VITALS: BP 149/63; PULSE 52; RESP 16; TEMP 35.7; O2SAT 100
[2022-04-14] MEDS: EPOETIN ALFA-EPBX 40,000 UNIT/ML VIAL 40000 UNIT SUBCUT (11:08)
== END ==
PROVIDERS: Family Provider Internal Medicine; PCP Internal Medicine; Referring Provider Internal Medicine; Visit Provider Internal Medicine Hematology & Oncology
DX: D46.9 Myelodysplastic syndrome, unspecified (principal); I13.0 Hypertensive heart and chronic kidney disease with heart failure and stage 1 through stage 4 chronic kidney disease, or unspecified chronic kidney disease; I50.31 Acute diastolic (congestive) heart failure; N18.32 Chronic kidney disease, stage 3b; D63.1 Anemia in chronic kidney disease
CPT/HCPCS: 96372; Q5106

== ENCOUNTER → 2022-04-28 10:21 | Outpatient (CLI) | payer MEDICARE, SELFPAY ==
[2021-09-17 10:40] VITALS: BMI 25.0
[2022-04-28 11:03] VITALS: BP 132/63; PULSE 54; RESP 18; TEMP 36.3; O2SAT 99
[2022-04-28] MEDS: EPOETIN ALFA-EPBX 40,000 UNIT/ML VIAL 40000 UNIT SUBCUT (11:18)
== END ==
PROVIDERS: Family Provider Internal Medicine; PCP Internal Medicine; Referring Provider Internal Medicine; Visit Provider Internal Medicine Hematology & Oncology
DX: D46.9 Myelodysplastic syndrome, unspecified (principal)
CPT/HCPCS: 96372; Q5106

== ENCOUNTER → 2022-05-16 09:26 | Outpatient (CLI) | payer MEDICARE, SELFPAY ==
[2021-09-17 10:40] VITALS: BMI 25.0
[2022-05-16] MEDS: EPOETIN ALFA-EPBX 20,000 UNIT/ML VIAL 40000 UNIT SUBCUT (10:53)
== END ==
PROVIDERS: Family Provider Internal Medicine; PCP Internal Medicine; Referring Provider Internal Medicine; Visit Provider Internal Medicine Hematology & Oncology
DX: D46.9 Myelodysplastic syndrome, unspecified (principal); I13.0 Hypertensive heart and chronic kidney disease with heart failure and stage 1 through stage 4 chronic kidney disease, or unspecified chronic kidney disease; I50.31 Acute diastolic (congestive) heart failure; N18.4 Chronic kidney disease, stage 4 (severe); D63.1 Anemia in chronic kidney disease
CPT/HCPCS: 96372; 99214; Q5106

== ENCOUNTER → 2022-05-26 10:17 | Outpatient (CLI) | payer MEDICARE, SELFPAY ==
[2021-09-17 10:40] VITALS: BMI 25.0
[2022-05-26 10:39] VITALS: BP 133/53; PULSE 55; RESP 16; TEMP 36.7; O2SAT 99
[2022-05-26] MEDS: EPOETIN ALFA-EPBX 20,000 UNIT/ML VIAL 40000 UNIT SUBCUT (10:46)
== END ==
PROVIDERS: Family Provider Internal Medicine; PCP Internal Medicine; Referring Provider Internal Medicine Hematology & Oncology; Visit Provider Internal Medicine Hematology & Oncology
DX: D46.9 Myelodysplastic syndrome, unspecified (principal); I13.0 Hypertensive heart and chronic kidney disease with heart failure and stage 1 through stage 4 chronic kidney disease, or unspecified chronic kidney disease; I50.31 Acute diastolic (congestive) heart failure; N18.4 Chronic kidney disease, stage 4 (severe); D63.1 Anemia in chronic kidney disease
CPT/HCPCS: 96372; Q5106

== ENCOUNTER → 2022-06-09 11:18 | Outpatient (CLI) | payer MEDICARE, SELFPAY ==
[2021-09-17 10:40] VITALS: BMI 25.0
[2022-06-09 11:33] VITALS: BP 133/60; PULSE 57; RESP 16; TEMP 36.4; O2SAT 99
[2022-06-09] MEDS: EPOETIN ALFA-EPBX 20,000 UNIT/ML VIAL 40000 UNIT SUBCUT (11:50)
--- NOTE | 2022-06-09 16:17 | ONC.PHA ---
EPO Injection: S/O: 81 y.o. male, with diagnosis of MDS & CKD, is here for EPO 40,000 units SubQ injection every 2 weeks. Per MD note, EPO 40,000 every 2 weeks and hold if Hbg > 10. Transfusion threshold is when H/H < 8/24. A/P: Reviewed 06/08/2022 labs: Hgb/Hct = 9.3/28.1 Last Iron panel (04/27/2022): Iron = 47, TIBC = 218, % Sat = 22. Transferrin = 158, Ferritin = 329. All are WNL, except for iron, TIBC and Transferrin are slightly low. Today BP = 133/60 Reviewed MD 05/16/2022 note, plan to continue EPO 40,000 units every 2 weeks. Allergies Allergy/AdvReac Type Severity Reaction Status Date / Time benazepril [BENAZEPRIL] Allergy Severe Unknown Verified 05/31/22 13:42 clonidine [CLONIDINE] Allergy Intermediate Verified 05/31/22 13:42 hydrocodone [HYDROCODONE] Allergy Mild Verified 05/31/22 13:42 Vital Signs Temperature 97.6 F 06/09/22 11:33 Pulse Rate 57 06/09/22 11:33 Respiratory Rate 16 06/09/22 11:33 Blood Pressure 133/60 06/09/22 11:33 Pulse Oximetry 99 06/09/22 11:33
== END ==
PROVIDERS: Family Provider Internal Medicine; PCP Internal Medicine; Referring Provider Internal Medicine; Visit Provider Internal Medicine Hematology & Oncology
DX: D46.9 Myelodysplastic syndrome, unspecified (principal); I13.0 Hypertensive heart and chronic kidney disease with heart failure and stage 1 through stage 4 chronic kidney disease, or unspecified chronic kidney disease; I50.31 Acute diastolic (congestive) heart failure; N18.4 Chronic kidney disease, stage 4 (severe); D63.1 Anemia in chronic kidney disease
CPT/HCPCS: 96372; Q5106

== ENCOUNTER → 2022-06-23 11:16 | Outpatient (CLI) | payer MEDICARE, SELFPAY ==
[2021-09-17 10:40] VITALS: BMI 25.0
[2022-06-23 11:25] VITALS: BP 138/64; PULSE 57; RESP 16; TEMP 36.4; O2SAT 100
[2022-06-23] MEDS: EPOETIN ALFA-EPBX 20,000 UNIT/ML VIAL 40000 UNIT SUBCUT (11:32)
== END ==
PROVIDERS: Family Provider Internal Medicine; PCP Internal Medicine; Referring Provider Internal Medicine Hematology & Oncology; Visit Provider Internal Medicine Hematology & Oncology
DX: D46.9 Myelodysplastic syndrome, unspecified (principal); I13.0 Hypertensive heart and chronic kidney disease with heart failure and stage 1 through stage 4 chronic kidney disease, or unspecified chronic kidney disease; I50.31 Acute diastolic (congestive) heart failure; N18.4 Chronic kidney disease, stage 4 (severe); D63.1 Anemia in chronic kidney disease
CPT/HCPCS: 96372; Q5106

== ENCOUNTER → 2022-06-28 14:21 | Outpatient (CLI) | payer MEDICARE, SELFPAY ==
[2021-09-17 10:40] VITALS: BMI 25.0
[2022-06-28 17:02] LABS: Hematocrit 30.1 % (41-53); Hemoglobin 10.1 g/dL (13.5-17.5); Mean Corpuscular HGB Conc 33.5 % (30-36); Mean Corpuscular Hemoglobin 33.6 PG (26-34); Mean Corpuscular Volume 100.2 fL (80-100); Platelet Count 86 X10^3/uL (150-400); Red Blood Cell Count 3.01 X10^6/uL (4.5-5.9); Red Cell Distribution Width 14.4 % (11.6-14.8); White Blood Cell Count 2.5 X10^3/uL (4.5-11.0)
[2022-06-28 17:13] LABS: Add Manual Diff / Slide Review YES
[2022-06-28 17:17] LABS: BUN Creatinine Ratio 24.1 (6-22); Blood Urea Nitrogen 77 mg/dL (9-20); Calcium 8.6 mg/dL (8.4-10.2); Carbon Dioxide 26 mmol/L (22-32); Chloride 101 mmol/L (98-107); Estimated Glomerular Filt Rate 19 mL/min (>60); Glucose 71 mg/dL (80-110); HEMOLYSIS < 15 (0-50); Magnesium 2.5 mg/dL (1.6-2.3); Phosphorous 5.2 mg/dL (2.3-3.7); Potassium 4.7 mmol/L (3.4-5.1); Sodium 137 mmol/L (137-145); Uric Acid 10.2 mg/dL (3.5-8.5)
[2022-06-28 17:26] LABS: Vitamin D 25 Hydroxy (D3) 66.6 ng/mL (30.0-100.0)
[2022-06-28 17:43] LABS: Neutrophils Absolute Manual 1125 /uL (3000-5900); Total Cells Counted 100
[2022-06-28 17:44] LABS: Platelet Estimate Decr; RBC Morphology Normal Morphology
[2022-06-28 18:15] LABS: Creatinine Urine Random 43.6 mg/dL
[2022-06-28 18:23] LABS: Microalbumi Creatinin Ratio Ur 176.6 ug/mg CR (<30); Microalbumin Urine Random 7.7 mg/dL (0-1.6)
[2022-06-29 06:33] LABS: Parathyroid Hormone Int 72 pg/mL (15-65)
== END ==
PROVIDERS: Family Provider Internal Medicine; PCP Internal Medicine; Referring Provider Internal Medicine Nephrology; Visit Provider Internal Medicine Nephrology
DX: N18.4 Chronic kidney disease, stage 4 (severe) (principal)
CPT/HCPCS: 36415; 80048; 82043; 82306; 82570; 83735; 83970; 84100; 84550; 85007; 85025

== ENCOUNTER → 2022-07-07 11:14 | Outpatient (CLI) | payer MEDICARE, SELFPAY ==
[2021-09-17 10:40] VITALS: BMI 25.0
[2022-07-07 11:54] VITALS: BP 137/65; PULSE 55; RESP 16; TEMP 36.3; O2SAT 100
[2022-07-07] MEDS: EPOETIN ALFA-EPBX 40,000 UNIT/ML VIAL 40000 UNIT SUBCUT (11:59)
--- NOTE | 2022-07-07 12:35 | PC.NURSE ---
BRADYCARDIA Pt seen in clinic today for epo injection. Pt HR irregular, ranging from 29-55 beats per minute. Pt denied lightheadedness, chest pain, shortness of breath, wooziness, vision changes. Stated I feel fine. I do have end stage heart failure. This RN auscultated apical pulse as 30 bpm and a few minutes later 52 bpm. Pt is seen by Caitlin Seals NP at [facility] in [place]. Pt stated She sees me for palliative care. Dr. Jacobson made aware. Per Dr. Jacobson, if patient has no symptoms he should follow-up with ship cleaner. If Pt has symptoms he should been seen by Emergency Department. This RN discussed s/s with Pt and instructed him to contact his [employer] today to inform them of irregular heart rate.
== END ==
PROVIDERS: Family Provider Internal Medicine; PCP Internal Medicine; Referring Provider Internal Medicine Hematology & Oncology; Visit Provider Internal Medicine Hematology & Oncology
DX: D46.9 Myelodysplastic syndrome, unspecified (principal); I13.0 Hypertensive heart and chronic kidney disease with heart failure and stage 1 through stage 4 chronic kidney disease, or unspecified chronic kidney disease; I50.31 Acute diastolic (congestive) heart failure; N18.4 Chronic kidney disease, stage 4 (severe); D63.1 Anemia in chronic kidney disease
CPT/HCPCS: 96372; Q5106

== ENCOUNTER → 2022-07-21 11:09 | Outpatient (CLI) | payer MEDICARE, SELFPAY ==
[2021-09-17 10:40] VITALS: BMI 25.0
[2022-07-21 11:31] VITALS: BP 147/71; PULSE 59; RESP 16; TEMP 36.8; O2SAT 99
[2022-07-21] MEDS: EPOETIN ALFA-EPBX 40,000 UNIT/ML VIAL 40000 UNIT SUBCUT (11:54)
== END ==
PROVIDERS: Family Provider Internal Medicine; PCP Internal Medicine; Referring Provider Internal Medicine Hematology & Oncology; Visit Provider Internal Medicine Hematology & Oncology
DX: D46.9 Myelodysplastic syndrome, unspecified (principal); I13.0 Hypertensive heart and chronic kidney disease with heart failure and stage 1 through stage 4 chronic kidney disease, or unspecified chronic kidney disease; I50.31 Acute diastolic (congestive) heart failure; N18.4 Chronic kidney disease, stage 4 (severe); D63.1 Anemia in chronic kidney disease
CPT/HCPCS: 96372; Q5106

== ENCOUNTER → 2022-08-04 11:09 | Outpatient (CLI) | payer MEDICARE, SELFPAY ==
[2021-09-17 10:40] VITALS: BMI 25.0
[2022-08-04 11:26] VITALS: BP 124/66; PULSE 57; RESP 16; TEMP 36.8; O2SAT 99
[2022-08-04] MEDS: EPOETIN ALFA-EPBX 40,000 UNIT/ML VIAL 40000 UNIT SUBCUT (11:34)
== END ==
PROVIDERS: Family Provider Internal Medicine; PCP Internal Medicine; Referring Provider Internal Medicine Hematology & Oncology; Visit Provider Internal Medicine Hematology & Oncology
DX: D46.9 Myelodysplastic syndrome, unspecified (principal); I13.0 Hypertensive heart and chronic kidney disease with heart failure and stage 1 through stage 4 chronic kidney disease, or unspecified chronic kidney disease; I50.31 Acute diastolic (congestive) heart failure; N18.4 Chronic kidney disease, stage 4 (severe); D63.1 Anemia in chronic kidney disease
CPT/HCPCS: 96372; Q5106

== ENCOUNTER → 2022-08-08 13:47 | Outpatient (CLI) | payer MEDICARE, SELFPAY ==
[2021-09-17 10:40] VITALS: BMI 25.0
[2022-08-08 15:01] LABS: Influenza A - CEPHEID Flu A NEGATIVE (NEGATIVE); Influenza B - CEPHEID Flu B NEGATIVE (NEGATIVE); Respiratory Syncytial Virus POSITIVE (Negative)
[2022-08-08 15:04] LABS: COVID-19 CEPHEID 4-PLEX PCR Negative (Negative)
== END ==
PROVIDERS: Family Provider Internal Medicine; PCP Internal Medicine; Visit Provider Physician Assistant Medical
DX: R05.9 Cough, unspecified (principal); Z20.822 Contact with and (suspected) exposure to COVID-19
CPT/HCPCS: 0241U

== ENCOUNTER → 2022-08-18 10:05 | Outpatient (CLI) | payer MEDICARE, SELFPAY ==
[2021-09-17 10:40] VITALS: BMI 25.0
[2022-08-18] MEDS: EPOETIN ALFA-EPBX 40,000 UNIT/ML VIAL 40000 UNIT SUBCUT (11:35)
== END ==
PROVIDERS: Family Provider Internal Medicine; PCP Internal Medicine; Referring Provider Internal Medicine Hematology & Oncology; Visit Provider Internal Medicine Hematology & Oncology
DX: D46.9 Myelodysplastic syndrome, unspecified (principal); I13.0 Hypertensive heart and chronic kidney disease with heart failure and stage 1 through stage 4 chronic kidney disease, or unspecified chronic kidney disease; I50.31 Acute diastolic (congestive) heart failure; N18.4 Chronic kidney disease, stage 4 (severe); D63.1 Anemia in chronic kidney disease
CPT/HCPCS: 96372; 99214; Q5106

== ENCOUNTER → 2022-09-01 11:14 | Outpatient (CLI) | payer MEDICARE, SELFPAY ==
[2021-09-17 10:40] VITALS: BMI 25.0
[2022-09-01 11:41] VITALS: BP 124/62; PULSE 57; RESP 16; TEMP 36.4; O2SAT 99
[2022-09-01] MEDS: EPOETIN ALFA-EPBX 20,000 UNIT/ML VIAL 40000 UNIT SUBCUT (12:01)
== END ==
PROVIDERS: Family Provider Internal Medicine; PCP Internal Medicine; Referring Provider Internal Medicine Hematology & Oncology; Visit Provider Internal Medicine Hematology & Oncology
DX: D46.9 Myelodysplastic syndrome, unspecified (principal); I13.0 Hypertensive heart and chronic kidney disease with heart failure and stage 1 through stage 4 chronic kidney disease, or unspecified chronic kidney disease; I50.31 Acute diastolic (congestive) heart failure; N18.4 Chronic kidney disease, stage 4 (severe); D63.1 Anemia in chronic kidney disease
CPT/HCPCS: 96372; Q5106

== ENCOUNTER → 2022-09-14 10:57 | Outpatient (CLI) | payer MEDICARE, SELFPAY ==
[2021-09-17 10:40] VITALS: BMI 25.0
[2022-09-14 12:18] LABS: BUN Creatinine Ratio 20.2 (6-22); Blood Urea Nitrogen 66 mg/dL (9-20); Calcium 8.1 mg/dL (8.4-10.2); Carbon Dioxide 27 mmol/L (22-32); Chloride 104 mmol/L (98-107); Estimated Glomerular Filt Rate 18 mL/min (>60); Glucose 85 mg/dL (80-110); HEMOLYSIS < 15 (0-50); Magnesium 2.4 mg/dL (1.6-2.3); Phosphorous 4.8 mg/dL (2.3-3.7); Potassium 4.6 mmol/L (3.4-5.1); Sodium 140 mmol/L (137-145); Uric Acid 8.3 mg/dL (3.5-8.5)
[2022-09-14 12:34] LABS: Vitamin D 25 Hydroxy (D3) 61.8 ng/mL (30.0-100.0)
[2022-09-16 07:23] LABS: Parathyroid Hormone Int 140 pg/mL (15-65)
== END ==
PROVIDERS: Family Provider Internal Medicine; PCP Internal Medicine; Referring Provider Internal Medicine Nephrology; Visit Provider Internal Medicine Nephrology
DX: N18.4 Chronic kidney disease, stage 4 (severe) (principal)
CPT/HCPCS: 36415; 80048; 82306; 83735; 83970; 84100; 84550

== ENCOUNTER → 2022-09-15 08:41 | Outpatient (CLI) | payer MEDICARE, SELFPAY ==
[2021-09-17 10:40] VITALS: BMI 25.0
[2022-09-15] MEDS: EPOETIN ALFA-EPBX 20,000 UNIT/ML VIAL 40000 UNIT SUBCUT (10:01)
== END ==
PROVIDERS: Family Provider Internal Medicine; PCP Internal Medicine; Referring Provider Internal Medicine Hematology & Oncology; Visit Provider Internal Medicine Hematology & Oncology
DX: D46.9 Myelodysplastic syndrome, unspecified (principal); I13.0 Hypertensive heart and chronic kidney disease with heart failure and stage 1 through stage 4 chronic kidney disease, or unspecified chronic kidney disease; I50.31 Acute diastolic (congestive) heart failure; N18.4 Chronic kidney disease, stage 4 (severe); D63.1 Anemia in chronic kidney disease; R53.83 Other fatigue; E78.5 Hyperlipidemia, unspecified
CPT/HCPCS: 96372; 99214; Q5106

== ENCOUNTER → 2022-09-22 10:36 | Outpatient (CLI) | payer MEDICARE, SELFPAY ==
[2021-09-17 10:40] VITALS: BMI 25.0
[2022-09-22 10:50] VITALS: BP 118/66; PULSE 67; RESP 18; TEMP 35.7; O2SAT 99
[2022-09-22] MEDS: EPOETIN ALFA-EPBX 20,000 UNIT/ML VIAL 40000 UNIT SUBCUT (10:58)
== END ==
PROVIDERS: Family Provider Internal Medicine; PCP Internal Medicine; Referring Provider Internal Medicine Hematology & Oncology; Visit Provider Internal Medicine Hematology & Oncology
DX: D46.9 Myelodysplastic syndrome, unspecified (principal); I13.0 Hypertensive heart and chronic kidney disease with heart failure and stage 1 through stage 4 chronic kidney disease, or unspecified chronic kidney disease; I50.31 Acute diastolic (congestive) heart failure; N18.4 Chronic kidney disease, stage 4 (severe); D63.1 Anemia in chronic kidney disease
CPT/HCPCS: 96372; Q5106

== ENCOUNTER → 2022-09-29 10:39 | Outpatient (CLI) | payer MEDICARE, SELFPAY ==
[2021-09-17 10:40] VITALS: BMI 25.0
[2022-09-29 11:31] VITALS: BP 129/65; PULSE 59; RESP 16; TEMP 35.8; O2SAT 100
[2022-09-29] MEDS: EPOETIN ALFA-EPBX 20,000 UNIT/ML VIAL 40000 UNIT SUBCUT (11:57)
== END ==
PROVIDERS: Family Provider Internal Medicine; PCP Internal Medicine; Referring Provider Internal Medicine; Visit Provider Internal Medicine Hematology & Oncology
DX: D46.9 Myelodysplastic syndrome, unspecified (principal); I13.0 Hypertensive heart and chronic kidney disease with heart failure and stage 1 through stage 4 chronic kidney disease, or unspecified chronic kidney disease; I50.31 Acute diastolic (congestive) heart failure; N18.4 Chronic kidney disease, stage 4 (severe); D63.1 Anemia in chronic kidney disease
CPT/HCPCS: 96372; Q5106

== ENCOUNTER → 2022-10-06 08:38 | Outpatient (CLI) | payer MEDICARE, SELFPAY ==
[2021-09-17 10:40] VITALS: BMI 25.0
[2022-10-06 11:02] VITALS: BP 121/68; PULSE 59; RESP 16; TEMP 36.3; O2SAT 100
[2022-10-06] MEDS: EPOETIN ALFA-EPBX 20,000 UNIT/ML VIAL 40000 UNIT SUBCUT (11:16)
== END ==
PROVIDERS: Family Provider Internal Medicine; PCP Internal Medicine; Referring Provider Internal Medicine; Visit Provider Internal Medicine Hematology & Oncology
DX: D46.9 Myelodysplastic syndrome, unspecified (principal); I13.0 Hypertensive heart and chronic kidney disease with heart failure and stage 1 through stage 4 chronic kidney disease, or unspecified chronic kidney disease; I50.31 Acute diastolic (congestive) heart failure; N18.4 Chronic kidney disease, stage 4 (severe); D63.1 Anemia in chronic kidney disease
CPT/HCPCS: 96372; Q5106

== ENCOUNTER → 2022-10-13 10:44 | Outpatient (CLI) | payer MEDICARE, SELFPAY ==
[2021-09-17 10:40] VITALS: BMI 25.0
[2022-10-13 11:30] VITALS: BP 143/77; PULSE 64; RESP 16; TEMP 36.2; O2SAT 98
[2022-10-13] MEDS: EPOETIN ALFA-EPBX 20,000 UNIT/ML VIAL 40000 UNIT SUBCUT (11:54)
== END ==
PROVIDERS: Family Provider Internal Medicine; PCP Internal Medicine; Referring Provider Internal Medicine; Visit Provider Internal Medicine Hematology & Oncology
DX: D46.9 Myelodysplastic syndrome, unspecified (principal); D63.1 Anemia in chronic kidney disease; I13.0 Hypertensive heart and chronic kidney disease with heart failure and stage 1 through stage 4 chronic kidney disease, or unspecified chronic kidney disease; N18.4 Chronic kidney disease, stage 4 (severe); I50.31 Acute diastolic (congestive) heart failure
CPT/HCPCS: 96372; Q5106

== ENCOUNTER → 2022-10-20 09:28 | Outpatient (CLI) | payer MEDICARE, SELFPAY ==
[2021-09-17 10:40] VITALS: BMI 25.0
[2022-10-20] MEDS: EPOETIN ALFA-EPBX 20,000 UNIT/ML VIAL 40000 UNIT SUBCUT (11:31)
== END ==
PROVIDERS: Family Provider Internal Medicine; PCP Internal Medicine; Referring Provider Internal Medicine; Visit Provider Internal Medicine Hematology & Oncology
DX: D46.9 Myelodysplastic syndrome, unspecified (principal); I13.0 Hypertensive heart and chronic kidney disease with heart failure and stage 1 through stage 4 chronic kidney disease, or unspecified chronic kidney disease; I50.31 Acute diastolic (congestive) heart failure; N18.4 Chronic kidney disease, stage 4 (severe); D63.1 Anemia in chronic kidney disease
CPT/HCPCS: 96372; 99214; Q5106

== ENCOUNTER → 2022-10-31 10:41 | Outpatient (CLI) | payer MEDICARE, SELFPAY ==
[2021-09-17 10:40] VITALS: BMI 25.0
--- NOTE | 2022-10-31 10:42 | DI.CT.S_ITS ---
PROCEDURE: CT ABDOMEN PELVIS WO CON INDICATIONS: Diarrhea, Pancreatic Insufficiency TECHNIQUE: After the administration of oral contrast, 5 mm thick sections acquired from the diaphragms to the symphysis. 5 mm coronal and sagittal reformats were performed. For radiation dose reduction, the following was used: automated exposure control, adjustment of mA and/or kV according to patient size. COMPARISON: Outside Facility, RG, CT ANGIOGRAPHY ABDOMEN AND PELVIS, 09/04/2018, 10:45. FINDINGS: Image quality: Excellent. ABDOMEN: Lung bases: There are trace bilateral low-density pleural effusions. The heart is mildly enlarged. There is a small low-density pericardial effusion. Solid organs: Liver is normal in size. Gallbladder is unremarkable . Pancreas is normal in size. Spleen is normal in size. No adrenal nodules. The bilateral kidneys are atrophic. No hydronephrosis. Exophytic cystic lesions are present bilaterally. There is a hyperdense appearing 1.0 cm cyst at the upper pole of the left kidney. Peritoneum and bowel: Bowel loops demonstrate normal wall thickness and caliber. There are extensive colonic diverticular outpouchings throughout the sigmoid colon. No mucosal thickening or pericolonic fat stranding. The appendix is thin walled. No free fluid or air. Nodes and vessels: No retroperitoneal or mesenteric adenopathy by size criteria. Aorta and inferior vena cava are normal in size. Patient is status post endovascular aortic repair. Miscellaneous: No ventral hernias. A penile prosthesis and reservoir is noted within the left lower quadrant. PELVIS: Genitourinary: Bladder wall thickness is normal. There is a right anterior bladder diverticulum. Miscellaneous: No inguinal hernias or adenopathy. Bones: No suspicious bony lesions. No vertebral body compression fractures. IMPRESSION: 1. No acute intra-abdominal findings. Normal appendix. Extensive sigmoid colon diverticulosis. No acute diverticulitis. 2. Small bilateral low-density pleural effusions and trace pericardial effusion. Dictated by: Petty Koo M.D. on 10/31/2022 at 14:42 Approved by: Petty Koo M.D. on 10/31/2022 at 14:47
== END ==
PROVIDERS: Family Provider Internal Medicine; PCP Internal Medicine; Referring Provider Internal Medicine; Visit Provider Internal Medicine
DX: R19.7 Diarrhea, unspecified (principal); J90 Pleural effusion, not elsewhere classified; K86.89 Other specified diseases of pancreas; N18.4 Chronic kidney disease, stage 4 (severe); K57.30 Diverticulosis of large intestine without perforation or abscess without bleeding
CPT/HCPCS: 74176

== ENCOUNTER → 2022-11-17 10:50 | Outpatient (CLI) | payer MEDICARE, SELFPAY ==
[2021-09-17 10:40] VITALS: BMI 25.0
[2022-11-17 11:33] VITALS: BP 119/67; PULSE 61; RESP 18; TEMP 36.6; O2SAT 99
[2022-11-17] MEDS: EPOETIN ALFA-EPBX 20,000 UNIT/ML VIAL 40000 UNIT SUBCUT (11:46)
== END ==
PROVIDERS: Family Provider Internal Medicine; PCP Internal Medicine; Referring Provider Internal Medicine; Visit Provider Internal Medicine Hematology & Oncology
DX: D46.9 Myelodysplastic syndrome, unspecified (principal); I13.0 Hypertensive heart and chronic kidney disease with heart failure and stage 1 through stage 4 chronic kidney disease, or unspecified chronic kidney disease; I50.31 Acute diastolic (congestive) heart failure; N18.4 Chronic kidney disease, stage 4 (severe); D63.1 Anemia in chronic kidney disease
CPT/HCPCS: 96372; Q5106

== ENCOUNTER → 2022-11-21 11:54 | Outpatient (CLI) | payer MEDICARE, SELFPAY ==
[2021-09-17 10:40] VITALS: BMI 25.0
[2022-11-21 14:04] LABS: Albumin 3.3 g/dL (3.5-5.0); BUN Creatinine Ratio 21.7 (6-22); Blood Urea Nitrogen 77 mg/dL (9-20); Calcium 8.1 mg/dL (8.4-10.2); Carbon Dioxide 27 mmol/L (22-32); Chloride 103 mmol/L (98-107); Estimated Glomerular Filt Rate 16 mL/min (>60); Glucose 91 mg/dL (80-110); HEMOLYSIS < 15 (0-50); Phosphorous 4.2 mg/dL (2.3-3.7); Potassium 4.7 mmol/L (3.4-5.1); Sodium 136 mmol/L (137-145)
[2022-11-21 15:52] LABS: Creatinine Urine Random 40.8 mg/dL
[2022-11-21 15:54] LABS: Microalbumi Creatinin Ratio Ur 122.5 ug/mg CR (<30)
[2022-11-23 07:59] LABS: Parathyroid Hormone Int 104 pg/mL (15-65)
== END ==
PROVIDERS: Family Provider Internal Medicine; PCP Internal Medicine; Referring Provider Internal Medicine Nephrology; Visit Provider Internal Medicine Nephrology
DX: N18.4 Chronic kidney disease, stage 4 (severe) (principal)
CPT/HCPCS: 36415; 80048; 82040; 82043; 82570; 83970; 84100

== ENCOUNTER → 2022-12-01 11:12 | Outpatient (CLI) | payer MEDICARE, SELFPAY ==
[2021-09-17 10:40] VITALS: BMI 25.0
[2022-12-01 11:25] VITALS: BP 115/68; PULSE 63; RESP 18; TEMP 35.8; O2SAT 99
[2022-12-01] MEDS: EPOETIN ALFA-EPBX 20,000 UNIT/ML VIAL 40000 UNIT SUBCUT (11:42)
== END ==
PROVIDERS: Family Provider Internal Medicine; PCP Internal Medicine; Referring Provider Internal Medicine; Visit Provider Internal Medicine Medical Oncology
DX: D46.9 Myelodysplastic syndrome, unspecified (principal); I13.0 Hypertensive heart and chronic kidney disease with heart failure and stage 1 through stage 4 chronic kidney disease, or unspecified chronic kidney disease; I50.31 Acute diastolic (congestive) heart failure; N18.4 Chronic kidney disease, stage 4 (severe); D63.1 Anemia in chronic kidney disease
CPT/HCPCS: 96372; Q5106

== ENCOUNTER → 2022-12-08 10:10 | Outpatient (CLI) | payer MEDICARE, SELFPAY ==
[2021-09-17 10:40] VITALS: BMI 25.0
[2022-12-08 11:29] LABS: Albumin 3.5 g/dL (3.5-5.0); BUN Creatinine Ratio 23.4 (6-22); Blood Urea Nitrogen 88 mg/dL (9-20); Calcium 8.3 mg/dL (8.4-10.2); Carbon Dioxide 27 mmol/L (22-32); Chloride 105 mmol/L (98-107); Estimated Glomerular Filt Rate 15 mL/min (>60); Glucose 101 mg/dL (80-110); HEMOLYSIS < 15 (0-50); Potassium 4.8 mmol/L (3.4-5.1); Sodium 138 mmol/L (137-145)
== END ==
PROVIDERS: Family Provider Internal Medicine; PCP Internal Medicine; Referring Provider Internal Medicine Nephrology; Visit Provider Internal Medicine Nephrology
DX: N18.4 Chronic kidney disease, stage 4 (severe) (principal)
CPT/HCPCS: 36415; 80048; 82040

== ENCOUNTER → 2022-12-13 09:51 | Outpatient (CLI) | payer MEDICARE, SELFPAY ==
[2021-09-17 10:40] VITALS: BMI 25.0
[2022-12-13 10:31] LABS: Add Manual Diff / Slide Review NO; Basophils Absolute Auto 100 /uL (0-100); Basophils Percent Auto 2.5 % (0-2); Eosinophils Absolute Auto 0 /uL (0-450); Eosinophils Percent Auto 1.5 % (2-4); Hematocrit 26.7 % (41-53); Hemoglobin 8.8 g/dL (13.5-17.5); Lymphocytes Absolute Auto 700 /uL (1100-4500); Lymphocytes Percent Auto 23.3 % (25-40); Mean Corpuscular HGB Conc 32.8 % (30-36); Mean Corpuscular Hemoglobin 33.5 PG (26-34); Monocytes Absolute Auto 400 /uL (0-900); Monocytes Percent Auto 12.6 % (3-14); Neutrophils Absolute Auto 1800 /uL (1500-7000); Neutrophils Percent Auto 60.1 % (50-75); Platelet Count 67 X10^3/uL (150-400); Red Blood Cell Count 2.62 X10^6/uL (4.5-5.9); Red Cell Distribution Width 18.5 % (11.6-14.8)
[2022-12-13 10:49] LABS: Alanine Aminotransferase 26 IU/L (<50); Albumin 3.7 g/dL (3.5-5.0); Albumin Globulin Ratio 1.3 (1.0-2.8); Alkaline Phosphatase 60 U/L (38-126); Aspartate Aminotransferase 26 IU/L (17-59); BUN Creatinine Ratio 24.3 (6-22); Bilirubin Total 0.7 mg/dL (0.2-1.3); Blood Urea Nitrogen 87 mg/dL (9-20); Calcium 8.3 mg/dL (8.4-10.2); Carbon Dioxide 26 mmol/L (22-32); Chloride 104 mmol/L (98-107); Estimated Glomerular Filt Rate 16 mL/min (>60); Globulin 2.8 g/dL (1.7-4.1); Glucose 98 mg/dL (80-110); HEMOLYSIS < 15 (0-50); Potassium 4.4 mmol/L (3.4-5.1); Sodium 139 mmol/L (137-145); Total Protein 6.5 g/dL (6.3-8.2)
[2022-12-13 10:49] LABS: Magnesium 2.5 mg/dL (1.6-2.3)
== END ==
PROVIDERS: Internal Medicine Hematology & Oncology; Family Provider Internal Medicine; PCP Internal Medicine; Referring Provider Internal Medicine Nephrology; Visit Provider Internal Medicine Nephrology
DX: D46.9 Myelodysplastic syndrome, unspecified (principal); N18.4 Chronic kidney disease, stage 4 (severe)
CPT/HCPCS: 36415; 80053; 83735; 85025

== ENCOUNTER → 2022-12-15 09:18 | Outpatient (CLI) | payer MEDICARE, SELFPAY ==
[2021-09-17 10:40] VITALS: BMI 25.0
[2022-12-15] MEDS: EPOETIN ALFA-EPBX 20,000 UNIT/ML VIAL 40000 UNIT SUBCUT (10:30)
== END ==
PROVIDERS: Family Provider Internal Medicine; PCP Internal Medicine; Referring Provider Internal Medicine; Visit Provider Internal Medicine Medical Oncology
DX: D46.9 Myelodysplastic syndrome, unspecified (principal); I13.0 Hypertensive heart and chronic kidney disease with heart failure and stage 1 through stage 4 chronic kidney disease, or unspecified chronic kidney disease; I50.31 Acute diastolic (congestive) heart failure; N18.4 Chronic kidney disease, stage 4 (severe); D63.1 Anemia in chronic kidney disease
CPT/HCPCS: 96372; 99214; Q5106

== ENCOUNTER → 2022-12-22 12:39 | Outpatient (CLI) | payer MEDICARE, SELFPAY ==
[2021-09-17 10:40] VITALS: BMI 25.0
[2022-12-22 12:58] VITALS: BP 125/70; PULSE 61; RESP 18; TEMP 35.9; O2SAT 100
[2022-12-22] MEDS: EPOETIN ALFA-EPBX 20,000 UNIT/ML VIAL 40000 UNIT SUBCUT (13:18)
== END ==
PROVIDERS: Family Provider Internal Medicine; PCP Internal Medicine; Referring Provider Internal Medicine; Visit Provider Internal Medicine Hematology & Oncology
DX: D46.9 Myelodysplastic syndrome, unspecified (principal); I13.0 Hypertensive heart and chronic kidney disease with heart failure and stage 1 through stage 4 chronic kidney disease, or unspecified chronic kidney disease; I50.31 Acute diastolic (congestive) heart failure; N18.4 Chronic kidney disease, stage 4 (severe); D63.1 Anemia in chronic kidney disease
CPT/HCPCS: 96372; Q5106

== ENCOUNTER → 2022-12-27 10:48 | Outpatient (CLI) | payer MEDICARE, SELFPAY ==
[2021-09-17 10:40] VITALS: BMI 25.0
[2022-12-27 13:33] LABS: Albumin 3.3 g/dL (3.5-5.0); BUN Creatinine Ratio 22.9 (6-22); Blood Urea Nitrogen 77 mg/dL (9-20); Calcium 8.5 mg/dL (8.4-10.2); Carbon Dioxide 32 mmol/L (22-32); Chloride 102 mmol/L (98-107); Estimated Glomerular Filt Rate 17 mL/min (>60); Glucose 117 mg/dL (80-110); HEMOLYSIS < 15 (0-50); Magnesium 2.5 mg/dL (1.6-2.3); Phosphorous 4.5 mg/dL (2.3-3.7); Potassium 4.8 mmol/L (3.4-5.1); Sodium 141 mmol/L (137-145)
[2022-12-27 19:43] LABS: Vitamin D 25 Hydroxy (D3) 66.3 ng/mL (30.0-100.0)
[2022-12-29 14:58] LABS: Parathyroid Hormone Int 114 pg/mL (15-65)
== END ==
PROVIDERS: Family Provider Internal Medicine; PCP Internal Medicine; Referring Provider Internal Medicine Nephrology; Visit Provider Internal Medicine Nephrology
DX: N18.32 Chronic kidney disease, stage 3b (principal)
CPT/HCPCS: 36415; 80048; 82040; 82306; 83735; 83970; 84100

== ENCOUNTER → 2022-12-29 10:11 | Outpatient (CLI) | payer MEDICARE, SELFPAY ==
[2021-09-17 10:40] VITALS: BMI 25.0
[2022-12-29 11:28] VITALS: BP 126/78; PULSE 64; RESP 16; TEMP 36.3; O2SAT 99
[2022-12-29] MEDS: EPOETIN ALFA-EPBX 40,000 UNIT/ML VIAL 40000 UNIT SUBCUT (11:39)
== END ==
PROVIDERS: Family Provider Internal Medicine; PCP Internal Medicine; Referring Provider Internal Medicine; Visit Provider Internal Medicine Hematology & Oncology
DX: D46.9 Myelodysplastic syndrome, unspecified (principal); I13.0 Hypertensive heart and chronic kidney disease with heart failure and stage 1 through stage 4 chronic kidney disease, or unspecified chronic kidney disease; I50.31 Acute diastolic (congestive) heart failure; N18.4 Chronic kidney disease, stage 4 (severe); D63.1 Anemia in chronic kidney disease
CPT/HCPCS: 96372; Q5106

== ENCOUNTER → 2023-01-05 09:43 | Outpatient (CLI) | payer MEDICARE, SELFPAY ==
[2021-09-17 10:40] VITALS: BMI 25.0
[2023-01-05 11:14] VITALS: BP 123/74; PULSE 69; RESP 16; TEMP 36.3; O2SAT 99
[2023-01-05] MEDS: EPOETIN ALFA-EPBX 40,000 UNIT/ML VIAL 40000 UNIT SUBCUT (11:20)
--- NOTE | 2023-01-05 11:29 | PC.NURSE ---
Noted most recent labs. Procrit administered back of left arm, no bleeding noted. Tolerated well. Left infusion room ambulatory, steady gait, no distress.
== END ==
PROVIDERS: Family Provider Internal Medicine; PCP Internal Medicine; Referring Provider Internal Medicine; Visit Provider Internal Medicine Hematology & Oncology
DX: D46.9 Myelodysplastic syndrome, unspecified (principal)
CPT/HCPCS: 96372; Q5106

== ENCOUNTER → 2023-01-12 13:30 | Outpatient (CLI) | payer MEDICARE, SELFPAY ==
[2021-09-17 10:40] VITALS: BMI 25.0
[2023-01-12 15:24] VITALS: BP 123/70; PULSE 66; RESP 18; TEMP 36.6; O2SAT 98
[2023-01-12] MEDS: EPOETIN ALFA-EPBX 20,000 UNIT/ML VIAL 40000 UNIT SUBCUT (15:29)
== END ==
PROVIDERS: Family Provider Internal Medicine; PCP Internal Medicine; Referring Provider Internal Medicine; Visit Provider Internal Medicine Hematology & Oncology
DX: D46.9 Myelodysplastic syndrome, unspecified (principal)
CPT/HCPCS: 96372; Q5106

== ENCOUNTER → 2023-01-19 10:59 | Outpatient (CLI) | payer MEDICARE, SELFPAY ==
[2021-09-17 10:40] VITALS: BMI 25.0
[2023-01-19 11:31] VITALS: BP 116/66; PULSE 64; RESP 18; TEMP 36.6; O2SAT 100
[2023-01-19] MEDS: EPOETIN ALFA-EPBX 40,000 UNIT/ML VIAL 40000 UNIT SUBCUT (11:40)
== END ==
PROVIDERS: Family Provider Internal Medicine; PCP Internal Medicine; Referring Provider Internal Medicine; Visit Provider Internal Medicine Hematology & Oncology
DX: D46.9 Myelodysplastic syndrome, unspecified (principal)
CPT/HCPCS: 36415; 80048; 82040; 82043; 82306; 82570; 83735; 83970; 84100; 96372; Q5106

== ENCOUNTER → 2023-01-19 11:57 | Outpatient (CLI) | payer MEDICARE, SELFPAY ==
[2021-09-17 10:40] VITALS: BMI 25.0
[2023-01-19 13:19] LABS: Albumin 3.3 g/dL (3.5-5.0); BUN Creatinine Ratio 23.1 (6-22); Blood Urea Nitrogen 75 mg/dL (9-20); Calcium 8.1 mg/dL (8.4-10.2); Carbon Dioxide 29 mmol/L (22-32); Chloride 102 mmol/L (98-107); Estimated Glomerular Filt Rate 18 mL/min (>60); Glucose 110 mg/dL (80-110); HEMOLYSIS < 15 (0-50); Magnesium 2.5 mg/dL (1.6-2.3); Phosphorous 4.9 mg/dL (2.3-3.7); Potassium 4.3 mmol/L (3.4-5.1); Sodium 137 mmol/L (137-145)
[2023-01-19 15:07] LABS: Microalbumin Urine Random 15.3 mg/dL (0-1.6)
[2023-01-19 15:09] LABS: Creatinine Urine Random 48.5 mg/dL; Microalbumi Creatinin Ratio Ur 315.4 ug/mg CR (<30)
[2023-01-19 15:17] LABS: Vitamin D 25 Hydroxy (D3) 64.4 ng/mL (30.0-100.0)
[2023-01-21 07:03] LABS: Parathyroid Hormone Int 135 pg/mL (15-65)
== END ==
PROVIDERS: Family Provider Internal Medicine; PCP Internal Medicine; Referring Provider Internal Medicine Nephrology; Visit Provider Internal Medicine Nephrology
DX: N18.4 Chronic kidney disease, stage 4 (severe) (principal)
CPT/HCPCS: 36415; 80048; 82040; 82043; 82306; 82570; 83735; 83970; 84100

== ENCOUNTER → 2023-01-26 10:29 | Outpatient (CLI) | payer MEDICARE, SELFPAY ==
[2021-09-17 10:40] VITALS: BMI 25.0
[2023-01-26 11:45] VITALS: BP 127/79; PULSE 63; RESP 16; TEMP 36.3; O2SAT 97
[2023-01-26] MEDS: EPOETIN ALFA-EPBX 20,000 UNIT/2 ML VIAL 40000 UNIT SUBCUT (12:04)
== END ==
PROVIDERS: Family Provider Internal Medicine; PCP Internal Medicine; Referring Provider Internal Medicine; Visit Provider Internal Medicine Hematology & Oncology
DX: D46.9 Myelodysplastic syndrome, unspecified (principal); I13.0 Hypertensive heart and chronic kidney disease with heart failure and stage 1 through stage 4 chronic kidney disease, or unspecified chronic kidney disease; I50.31 Acute diastolic (congestive) heart failure; N18.4 Chronic kidney disease, stage 4 (severe); D63.1 Anemia in chronic kidney disease
CPT/HCPCS: 96372; Q5106

== ENCOUNTER → 2023-02-02 10:19 | Outpatient (CLI) | payer MEDICARE, SELFPAY ==
[2021-09-17 10:40] VITALS: BMI 25.0
[2023-02-02 11:41] VITALS: BP 109/67; PULSE 62; RESP 16; TEMP 36; O2SAT 100
[2023-02-02] MEDS: EPOETIN ALFA-EPBX 20,000 UNIT/2 ML VIAL 40000 UNIT SUBCUT (11:58)
== END ==
PROVIDERS: Family Provider Internal Medicine; PCP Internal Medicine; Referring Provider Internal Medicine; Visit Provider Internal Medicine Hematology & Oncology
DX: D46.9 Myelodysplastic syndrome, unspecified (principal); I13.0 Hypertensive heart and chronic kidney disease with heart failure and stage 1 through stage 4 chronic kidney disease, or unspecified chronic kidney disease; I50.31 Acute diastolic (congestive) heart failure; N18.4 Chronic kidney disease, stage 4 (severe); D63.1 Anemia in chronic kidney disease
CPT/HCPCS: 96372; Q5106

== ENCOUNTER → 2023-02-09 11:09 | Outpatient (CLI) | payer MEDICARE, SELFPAY ==
[2021-09-17 10:40] VITALS: BMI 25.0
[2023-02-09 11:24] VITALS: BP 113/67; PULSE 69; RESP 18; TEMP 36.6; O2SAT 99
[2023-02-09] MEDS: EPOETIN ALFA-EPBX 40,000 UNIT/ML VIAL 40000 UNIT SUBCUT (11:31)
== END ==
PROVIDERS: Family Provider Internal Medicine; PCP Internal Medicine; Referring Provider Internal Medicine Hematology & Oncology; Visit Provider Internal Medicine Hematology & Oncology
DX: D46.9 Myelodysplastic syndrome, unspecified (principal); I13.0 Hypertensive heart and chronic kidney disease with heart failure and stage 1 through stage 4 chronic kidney disease, or unspecified chronic kidney disease; I50.31 Acute diastolic (congestive) heart failure; N18.4 Chronic kidney disease, stage 4 (severe); D63.1 Anemia in chronic kidney disease
CPT/HCPCS: 96372; Q5106

== ENCOUNTER → 2023-02-15 11:57 | Outpatient (CLI) | payer MEDICARE, SELFPAY ==
[2021-09-17 10:40] VITALS: BMI 25.0
[2023-02-15 12:46] LABS: Hematocrit 28.2 % (41-53); Hemoglobin 9.2 g/dL (13.5-17.5)
[2023-02-15 13:28] LABS: BUN Creatinine Ratio 30.9 (6-22); Blood Urea Nitrogen 102 mg/dL (9-20); Calcium 8.4 mg/dL (8.4-10.2); Carbon Dioxide 31 mmol/L (22-32); Chloride 101 mmol/L (98-107); Estimated Glomerular Filt Rate 18 mL/min (>60); Glucose 90 mg/dL (80-110); HEMOLYSIS < 15 (0-50); Magnesium 2.7 mg/dL (1.6-2.3); Sodium 140 mmol/L (137-145)
== END ==
PROVIDERS: Internal Medicine Hematology & Oncology; Family Provider Internal Medicine; PCP Internal Medicine; Referring Provider Internal Medicine Nephrology; Visit Provider Internal Medicine Nephrology
DX: N18.5 Chronic kidney disease, stage 5 (principal); D46.9 Myelodysplastic syndrome, unspecified
CPT/HCPCS: 36415; 80048; 83735; 85014; 85018

== ENCOUNTER → 2023-02-16 10:40 | Outpatient (CLI) | payer MEDICARE, SELFPAY ==
[2021-09-17 10:40] VITALS: BMI 25.0
[2023-02-16 11:34] VITALS: BP 119/71; PULSE 65; RESP 16; TEMP 36.5; O2SAT 99
[2023-02-16] MEDS: EPOETIN ALFA-EPBX 40,000 UNIT/ML VIAL 40000 UNIT SUBCUT (11:53)
== END ==
PROVIDERS: Family Provider Internal Medicine; PCP Internal Medicine; Referring Provider Internal Medicine; Visit Provider Internal Medicine Hematology & Oncology
DX: D46.9 Myelodysplastic syndrome, unspecified (principal); I13.0 Hypertensive heart and chronic kidney disease with heart failure and stage 1 through stage 4 chronic kidney disease, or unspecified chronic kidney disease; I50.31 Acute diastolic (congestive) heart failure; N18.4 Chronic kidney disease, stage 4 (severe); D63.1 Anemia in chronic kidney disease
CPT/HCPCS: 96372; Q5106

== ENCOUNTER → 2023-02-23 11:14 | Outpatient (CLI) | payer MEDICARE, SELFPAY ==
[2021-09-17 10:40] VITALS: BMI 25.0
[2023-02-23 11:37] VITALS: BP 114/60; PULSE 65; RESP 16; TEMP 36.7; O2SAT 99
[2023-02-23] MEDS: EPOETIN ALFA-EPBX 40,000 UNIT/ML VIAL 40000 UNIT SUBCUT (11:54)
== END ==
PROVIDERS: Family Provider Internal Medicine; PCP Internal Medicine; Referring Provider Internal Medicine; Visit Provider Internal Medicine Hematology & Oncology
DX: D46.9 Myelodysplastic syndrome, unspecified (principal); I13.0 Hypertensive heart and chronic kidney disease with heart failure and stage 1 through stage 4 chronic kidney disease, or unspecified chronic kidney disease; I50.31 Acute diastolic (congestive) heart failure; N18.4 Chronic kidney disease, stage 4 (severe); D63.1 Anemia in chronic kidney disease
CPT/HCPCS: 96372; Q5106

== ENCOUNTER → 2023-03-01 12:37 | Outpatient (CLI) | payer MEDICARE, SELFPAY ==
[2021-09-17 10:40] VITALS: BMI 25.0
[2023-03-01 13:26] LABS: BUN Creatinine Ratio 30.4 (6-22); Calcium 8.7 mg/dL (8.4-10.2); Carbon Dioxide 34 mmol/L (22-32); Chloride 91 mmol/L (98-107); Estimated Glomerular Filt Rate 16 mL/min (>60); Glucose 116 mg/dL (80-110); HEMOLYSIS < 15 (0-50); Magnesium 2.8 mg/dL (1.6-2.3); Sodium 135 mmol/L (137-145)
[2023-03-01 13:43] LABS: Blood Urea Nitrogen 108 mg/dL (9-20)
== END ==
PROVIDERS: Family Provider Internal Medicine; PCP Internal Medicine; Referring Provider Internal Medicine Nephrology; Visit Provider Internal Medicine Nephrology
DX: N18.5 Chronic kidney disease, stage 5 (principal)
CPT/HCPCS: 36415; 80048; 83735

== ENCOUNTER → 2023-03-02 10:34 | Outpatient (CLI) | payer MEDICARE, SELFPAY ==
[2021-09-17 10:40] VITALS: BMI 25.0
[2023-03-02 11:07] VITALS: BP 107/67; PULSE 67; RESP 18; TEMP 36.1; O2SAT 100
[2023-03-02] MEDS: EPOETIN ALFA-EPBX 40,000 UNIT/ML VIAL 40000 UNIT SUBCUT (11:17)
== END ==
PROVIDERS: Family Provider Internal Medicine; PCP Internal Medicine; Referring Provider Internal Medicine; Visit Provider Internal Medicine Hematology & Oncology
DX: D46.9 Myelodysplastic syndrome, unspecified (principal); I13.0 Hypertensive heart and chronic kidney disease with heart failure and stage 1 through stage 4 chronic kidney disease, or unspecified chronic kidney disease; I50.31 Acute diastolic (congestive) heart failure; N18.4 Chronic kidney disease, stage 4 (severe); D63.1 Anemia in chronic kidney disease
CPT/HCPCS: 96372; Q5106

== ENCOUNTER → 2023-03-09 10:22 | Outpatient (CLI) | payer MEDICARE, SELFPAY ==
[2021-09-17 10:40] VITALS: BMI 25.0
[2023-03-09 11:27] VITALS: BP 120/77; PULSE 76; RESP 16; TEMP 36.6; O2SAT 99
[2023-03-09] MEDS: EPOETIN ALFA-EPBX 10,000 UNIT/ML VIAL 40000 UNIT SUBCUT (11:40)
== END ==
PROVIDERS: Family Provider Internal Medicine; PCP Internal Medicine; Referring Provider Internal Medicine; Visit Provider Internal Medicine Hematology & Oncology
DX: D46.9 Myelodysplastic syndrome, unspecified (principal); I13.0 Hypertensive heart and chronic kidney disease with heart failure and stage 1 through stage 4 chronic kidney disease, or unspecified chronic kidney disease; I50.31 Acute diastolic (congestive) heart failure; N18.4 Chronic kidney disease, stage 4 (severe); D63.1 Anemia in chronic kidney disease
CPT/HCPCS: 96372; Q5106

== ENCOUNTER → 2023-03-15 11:08 | Outpatient (CLI) | payer MEDICARE, SELFPAY ==
[2021-09-17 10:40] VITALS: BMI 25.0
[2023-03-15 12:30] LABS: BUN Creatinine Ratio 31.6 (6-22); Calcium 8.3 mg/dL (8.4-10.2); Carbon Dioxide 29 mmol/L (22-32); Chloride 98 mmol/L (98-107); Estimated Glomerular Filt Rate 17 mL/min (>60); Glucose 140 mg/dL (80-110); HEMOLYSIS 33 (0-50); Magnesium 2.8 mg/dL (1.6-2.3); Potassium 4.3 mmol/L (3.4-5.1); Sodium 139 mmol/L (137-145)
[2023-03-15 12:46] LABS: Blood Urea Nitrogen 109 mg/dL (9-20)
== END ==
PROVIDERS: Family Provider Internal Medicine; PCP Internal Medicine; Referring Provider Internal Medicine Nephrology; Visit Provider Internal Medicine Nephrology
DX: N18.5 Chronic kidney disease, stage 5 (principal)
CPT/HCPCS: 36415; 80048; 83735

== ENCOUNTER → 2023-03-16 09:03 | Outpatient (CLI) | payer MEDICARE, SELFPAY ==
[2021-09-17 10:40] VITALS: BMI 25.0
[2023-03-16] MEDS: EPOETIN ALFA-EPBX 20,000 UNIT/ML VIAL 40000 UNIT SUBCUT (11:36)
== END ==
PROVIDERS: Family Provider Internal Medicine; PCP Internal Medicine; Referring Provider Internal Medicine; Visit Provider Internal Medicine Hematology & Oncology
DX: D46.9 Myelodysplastic syndrome, unspecified (principal); I13.0 Hypertensive heart and chronic kidney disease with heart failure and stage 1 through stage 4 chronic kidney disease, or unspecified chronic kidney disease; I50.31 Acute diastolic (congestive) heart failure; N18.4 Chronic kidney disease, stage 4 (severe); D63.1 Anemia in chronic kidney disease
CPT/HCPCS: 96372; 99214; Q5106